=== PATIENT | male | born 1940 | race Caucasian/White ===

== ENCOUNTER → 2018-04-04 09:59 | Outpatient (BNVA) | payer MEDICARE, SELFPAY | PROVIDERS: PCP Student in an Organized Health Care Education/Training Program; Referring Provider Student in an Organized Health Care Education/Training Program; Visit Provider Physical Therapy Assistant | DX: L72.9 Follicular cyst of the skin and subcutaneous tissue, unspecified (principal); I10 Essential (primary) hypertension; E11.9 Type 2 diabetes mellitus without complications; Z79.84 Long term (current) use of oral hypoglycemic drugs | CPT/HCPCS: 99213 ==

== ENCOUNTER → 2018-04-10 12:54 | Outpatient (BNVA) | payer MEDICARE, SELFPAY | PROVIDERS: PCP Student in an Organized Health Care Education/Training Program; Referring Provider Student in an Organized Health Care Education/Training Program; Visit Provider Physical Therapy Assistant | DX: L72.9 Follicular cyst of the skin and subcutaneous tissue, unspecified (principal); I10 Essential (primary) hypertension; E11.9 Type 2 diabetes mellitus without complications; Z79.84 Long term (current) use of oral hypoglycemic drugs | CPT/HCPCS: 10060; 99212 ==

== ENCOUNTER → 2018-04-18 09:11 | Outpatient (BNVA) | payer MEDICARE, SELFPAY | PROVIDERS: PCP Student in an Organized Health Care Education/Training Program; Referring Provider Student in an Organized Health Care Education/Training Program; Visit Provider Physical Therapy Assistant | DX: L72.9 Follicular cyst of the skin and subcutaneous tissue, unspecified (principal); I10 Essential (primary) hypertension; E11.9 Type 2 diabetes mellitus without complications; Z79.84 Long term (current) use of oral hypoglycemic drugs ==

== ENCOUNTER 2018-05-23 11:17 | Outpatient (CLI) | payer MEDICARE, SELFPAY ==
[2018-05-23 11:49] LABS: HCT 42.8 % (40.0-50.0); HGB 14.3 g/dL (13.5-17.5); Mean Corp. HGB Concentration 33.4 g/dL (32.0-36.0); Mean Corpuscular Hemoglobin 30.2 pg (27.0-33.0); Mean Corpuscular Volume 90.5 fL (80-95); Mean Platelet Volume 10.6 fL (8.0-11.0); Platelet Count 195 x1000/uL (130-400); RBC 4.73 m/cumm (4.50-6.00); RBC Distribution Width 12.1 % (11.8-14.1); White Blood Cell Count 8.01 k/cumm (4.4-10.8)
[2018-05-23 13:15] LABS: ALT 28 U/L (12-78); AST 22 U/L (15-37); Albumin 3.7 g/dL (3.4-5.0); Alkaline Phosphatase 61 U/L (46-116); Anion Gap 4.9 mmol/L (3-11); BUN 17 mg/dL (7-18); Bilirubin, Total 0.9 mg/dL (0.2-1.0); CO2 33.1 mmol/L (21.0-32.0); Calcium 9.4 mg/dL (8.5-10.1); Chloride 103 mmol/L (98-107); Cholesterol 124 mg/dL (50-200); Glucose 110 mg/dL (70-100); HDL Cholesterol 45 mg/dL (40-60); LDL CHOLESTEROL 64 mg/dL (<100); Sodium 141 mmol/L (136-145); Total Protein 6.8 g/dL (6.4-8.2); Triglyceride 121 mg/dL (30-150)
[2018-05-26 11:25] LABS: PSA, Diagnostic 3.4 ng/ml (0-6.5)
== END 2018-05-23 11:37 ==
PROVIDERS: PCP Student in an Organized Health Care Education/Training Program; Visit Provider Urology
DX: E11.9 Type 2 diabetes mellitus without complications (principal); R53.83 Other fatigue
CPT/HCPCS: 36415; 80053; 80061; 83721; 85027; 84153

== ENCOUNTER → 2018-06-02 07:55 | Outpatient (BNVA) | payer MEDICARE, SELFPAY | PROVIDERS: PCP Student in an Organized Health Care Education/Training Program; Visit Provider Urology | DX: R39.12 Poor urinary stream (principal); R97.20 Elevated prostate specific antigen [PSA]; I10 Essential (primary) hypertension; E11.9 Type 2 diabetes mellitus without complications; Z79.84 Long term (current) use of oral hypoglycemic drugs | CPT/HCPCS: 99213 ==

== ENCOUNTER 2019-05-29 09:43 | Outpatient (CLI) | payer MEDICARE, SELFPAY ==
[2019-06-01 11:26] LABS: PSA, Diagnostic 5.1 ng/mL (0.0-6.5)
== END 2019-05-29 10:03 ==
PROVIDERS: PCP Student in an Organized Health Care Education/Training Program; Visit Provider Urology
DX: R97.20 Elevated prostate specific antigen [PSA] (principal)
CPT/HCPCS: 36415; 84153

== ENCOUNTER → 2019-06-05 08:00 | Outpatient (BNVA) | payer MEDICARE, SELFPAY | PROVIDERS: PCP Student in an Organized Health Care Education/Training Program; Referring Provider Student in an Organized Health Care Education/Training Program; Visit Provider Urology | DX: R97.20 Elevated prostate specific antigen [PSA] (principal); R35.0 Frequency of micturition | CPT/HCPCS: 99213 ==

== ENCOUNTER 2019-06-16 07:11 | Outpatient (CLI) | payer MEDICARE, SELFPAY ==
[2019-06-16 08:05] LABS: HCT 41.8 % (40.0-50.0); HGB 14.1 g/dL (13.5-17.5); Mean Corp. HGB Concentration 33.7 g/dL (32.0-36.0); Mean Corpuscular Hemoglobin 30.4 pg (27.0-33.0); Mean Corpuscular Volume 90.1 fL (80-95); Mean Platelet Volume 10.4 fL (8.0-11.0); Platelet Count 172 x1000/uL (130-400); RBC 4.64 m/cumm (4.50-6.00); RBC Distribution Width 12.5 % (11.8-14.1); White Blood Cell Count 7.13 k/cumm (4.4-10.8)
[2019-06-16 09:03] LABS: ALT 31 U/L (16-63); AST 21 U/L (15-37); Albumin 3.7 g/dL (3.4-5.0); Alkaline Phosphatase 74 U/L (46-116); Anion Gap 6.3 mmol/L (3-11); BUN 18 mg/dL (7-18); CO2 30.7 mmol/L (21.0-32.0); CREATININE 0.91 mg/dL (0.70-1.30); Calcium 8.8 mg/dL (8.5-10.1); Calculated LDL 65 mg/dL (<100); Chloride 104 mmol/L (98-107); Cholesterol 114 mg/dL (<200); Glucose 118 mg/dL (74-106); HDL Cholesterol 42 mg/dL (40-60); Potassium 4.3 mmol/L (3.5-5.1); Sodium 141 mmol/L (136-145); Total Protein 6.3 g/dL (6.4-8.2); Triglyceride 36 mg/dL (<150)
[2019-06-16 09:10] LABS: TSH (W/Ref FT4) 2.71 uIU/mL (0.36-3.74)
== END 2019-06-16 07:31 ==
PROVIDERS: PCP Student in an Organized Health Care Education/Training Program; Visit Provider Student in an Organized Health Care Education/Training Program
DX: I10 Essential (primary) hypertension (principal); I49.8 Other specified cardiac arrhythmias; Z80.0 Family history of malignant neoplasm of digestive organs; E11.9 Type 2 diabetes mellitus without complications; Z13.220 Encounter for screening for lipoid disorders; R53.83 Other fatigue
CPT/HCPCS: 36415; 80053; 80061; 85027; 84443

== ENCOUNTER 2019-06-26 13:47 | Outpatient (REF) | payer MEDICARE, SELFPAY ==
[2019-06-26 14:49] LABS: COMMENT (LAB VIEW ONLY) 30.75 mg/dL; Microalb ug/mg Crea 15.6 ug/mg Cr
== END 2019-06-26 14:07 ==
LOC: LBN 13:47
PROVIDERS: PCP Student in an Organized Health Care Education/Training Program; Visit Provider Student in an Organized Health Care Education/Training Program
DX: E11.9 Type 2 diabetes mellitus without complications (principal)
CPT/HCPCS: 82043; 82570

== ENCOUNTER → 2019-11-20 08:29 | Outpatient (BNVA) | payer MEDICARE, SELFPAY | PROVIDERS: PCP Student in an Organized Health Care Education/Training Program; Referring Provider Student in an Organized Health Care Education/Training Program; Visit Provider Physical Therapy Assistant | DX: Z12.11 Encounter for screening for malignant neoplasm of colon (principal); Z80.0 Family history of malignant neoplasm of digestive organs ==

== ENCOUNTER 2019-12-01 06:18 | Day surgery (SDC) | payer MEDICARE, SELFPAY ==
[2019-12-01 06:09] VITALS: BP 158/86; PULSE 63; RESP 20; TEMP 37.1; O2SAT 97
--- NOTE | 2019-12-01 06:52 | COLE_ITS ---
Date of service: 12/01/19 Time of Service: : Colonoscopy Report Date of procedure: 12/01/19 Pre-op diagnosis general: Colon Cancer Screening and Family history Post-op diagnosis procedure note: other (cecal polyp) Procedure: Colonoscopy with polypectomy Surgeon: Mary Angela Anesthesia proc note operative: other (General/ASA 2/Klaus So CRNA) Estimated blood loss (mL): 2 Pathology: other (Cecal polyp) Complications: None Disposition: same day Indications: The patient is here for Colonoscopy pre-op.His last screening was in 2012, which was unremarkable. He reports family history of colon cancer in his brother at the age of 70. He has no family history of colon cancer. He has not had any bowel habit changes. -Discussed colonoscopy bowel prep as well as the procedure. Discussed possible complications of the procedure to include bleeding, pain, perforation, missed small lesion/polyp, sore throat, aspiration and adverse reaction to the medications. Questions were answered to patient?s satisfaction. No guarantees were implied or given. Prep: Miralax/Dulcolax Procedure Start Time: Procedure End Time: : Retraction Time: 15 minutes Findings: One small sessile polyp next to the ileocecal valve Procedure Description: After informed consent was obtained the patient was taken to the procedure room and placed in a left decubitous position. Monitors were applied and a time out was done. The patients name, date of , procedure, allergies to medications and metal in their body was reviewed. The patient was then sedated. Once sedated and comfortable a rectal exam was done. External exam was normal. Internal exam revealed a normal sphincter tone and no palpable masses. The prostate felt smooth. There were no nodules. The scope was then introduced and retro-flexed. No internal hemorrhoids were identified. The scope was then advanced to the cecum with some difficulty, due to a tortuous. The ileocecal valve and appendiceal orifice were identified. The prep was good. The scope was then slowly retracted over 15 minutes back into the rectum. Polyps were removed with cold forceps at the ileocecal valve. The scope was removed and the patient was woken up and taken back to [facility] in stable condition. The patient tolerated the procedure well and there were no immediate complications. Follow up: The patient should follow up in 5 years unless they develop changes in bowel habits or other new gastrointestinal complaints.
[2019-12-01] MEDS: Lactated Ringers 1,000 ML 80 ML IV (06:53)
--- NOTE | 2019-12-01 06:55 | W.PM.DSUDISC ---
Discharge Plan Disposition Patient Disposition: HOME Condition: Good Discharge Details Reason For Visit: Colonoscopy Attending Provider: Mary Angela Primary Care Provider: Aissatou Hull Home Meds and New Rx's Prescriptions: Continued latanoprost 0.005 % drops 1 drp OP QPM RF: 0 magnesium 200 mg tablet 500 mg PO DAILY RF: 0 multivitamin [Daily Vitamin] 1 EACH tablet 1 ea PO DAILY RF: 0 ascorbic acid (vitamin C) [Vitamin C] 500 MG tablet 500 mg PO DAILY RF: 0 aspirin [Aspirin Low-Strength] 81 MG tablet,chewable 81 mg PO DAILY Qty: 90 RF: 0 omega-3 fatty acids-fish oil 1 EACH capsule 1 ea PO DAILY RF: 0 (DME) lancets 1 EACH misc 1 ea Miscellaneous DAILY Qty: 100 RF: 3 (DME) blood sugar diagnostic [Accu-Chek Diana Plus test strp] 1 EACH strip 1 ea Miscellaneous DAILY Qty: 100 RF: 3 lisinopril 20 mg tablet 20 mg PO DAILY Qty: 90 RF: 3 metronidazole 0.75 % gel 1 applic Topical DAILY PRNRF: 0 atorvastatin 10 mg tablet 10 mg PO QHS Qty: 90 RF: 3 hydrochlorothiazide 12.5 mg tablet 12.5 mg PO DAILY Qty: 90 RF: 3 metformin 500 mg tablet 250 - 500 mg PO BID RF: 0 Discharge Instructions Instructions: Colorectal Polyps (DC), Diverticulosis (DC) Additional Instructions: Findings: mild diverticulosis one small polyp Follow up: 5 years Please call if you develop: fevers >101.5 Nausea or Vomiting Abdominal pain that is not transient DAY SURGERY UNIT POST ENDOSCOPY INSTRUCTIONS 1. Because there will be medication in your system for the next 24 hours, you may feel a little sleepy. Your coordination will be affected. Therefore: a. Do not drive or operate dangerous equipment for 24 hours. b. Do not drink alcohol beverages for 24 hours (not even beer). c. Plan to go home and rest for the day. 2. Generally there are no restrictions on your activity after a day or so has gone by, but you may feel a bit fatigued for a few days. 3 After you arrive home you may have a light meal and return to a normal diet as you can tolerate it without feeling sick to your stomach. 4. After surgery, you may feel pain or discomfort. This should be only transient, but if it persists please contact your doctor. 5. If there are any questions regarding the findings of your procedure, please feel free to contact your doctor. 6. If you are unable to contact your doctor with a problem, contact the hospital at [phone]. 7. Continue all your regular medications unless directed otherwise. I understand the above instructions and have no questions. Signature of Patient or Responsible Adult Escort Date/Time Name of Responsible Adult Escort Signature of Nurse Date/Time Activity:: Activity as Tolerated Diet:: high fiber Discharge Orders Discharge Orders: Discharge Order (Routine); Ordered 12/01/19 Ordered By: Mary Angela
--- NOTE | 2019-12-01 07:48 | BOWEL_PTH ---
PATIENT: Santo Howe LOC: [facility] U#:[id number] AGE/SX: 79/M ROOM: RE12/01/[address]: Mary Angela MD : [id number] BED: DIS: 12/01/2019 SPEC #: [id number] RECD: 12/01/19 12:10 STATUS: LAURITA REQ #: [id number] ISAC: 12/01/19 07:[address]: Mary Angela DEPT: Surgical Specimen RECD BY: Alyssa Xiao ENTERED: 12/01/19 12:11 SP TYPE: Bowel OTHR DR: Aissatou Hull DO Tissues: 1 - BIOPSY BOWEL Procedures: GROSS AND MICRO LEVEL 4 Comments: [id number]
[2019-12-01 08:45] VITALS: BP 142/89; PULSE 52; RESP 18; TEMP 36.2; O2SAT 97
== END 2019-12-01 09:13 | disposition home or self-care (01) ==
PROVIDERS: PCP Student in an Organized Health Care Education/Training Program; Visit Provider Surgery
PROC: 0DJD8ZZ Inspection of Lower Intestinal Tract, Via Natural or Artificial Opening Endoscopic (ICD-10-PCS; CPT 45378; principal; 2019-12-01 07:30)
DX: Z12.11 Encounter for screening for malignant neoplasm of colon (principal); Z80.0 Family history of malignant neoplasm of digestive organs; D12.0 Benign neoplasm of cecum; K57.30 Diverticulosis of large intestine without perforation or abscess without bleeding; Q43.8 Other specified congenital malformations of intestine; I10 Essential (primary) hypertension; G47.33 Obstructive sleep apnea (adult) (pediatric); E11.9 Type 2 diabetes mellitus without complications
CPT/HCPCS: 45380; 88305; J2001

== ENCOUNTER 2020-05-30 01:50 | Outpatient (CLI) | payer MEDICARE, SELFPAY ==
[2020-05-30 08:39] LABS: ALT 32 U/L (16-63); AST 21 U/L (15-37); Albumin 3.9 g/dL (3.4-5.0); Alkaline Phosphatase 73 U/L (46-116); Anion Gap 6.4 mmol/L (3-11); BUN 17 mg/dL (7-18); Bilirubin, Total 0.7 mg/dL (0.2-1.0); CO2 29.6 mmol/L (21.0-32.0); CREATININE 0.8 mg/dL (0.70-1.30); Calcium 8.9 mg/dL (8.5-10.1); Calculated LDL 72 mg/dL (<100); Chloride 104 mmol/L (98-107); Cholesterol 133 mg/dL (<200); Glucose 122 mg/dL (74-106); HDL Cholesterol 47 mg/dL (40-60); Potassium 4.5 mmol/L (3.5-5.1); Sodium 140 mmol/L (136-145); Total Protein 6.8 g/dL (6.4-8.2); Triglyceride 74 mg/dL (<150)
== END 2020-05-30 01:51 | disposition home or self-care (01) ==
LOC: LBO 01:50
PROVIDERS: Urology; PCP Student in an Organized Health Care Education/Training Program; Visit Provider Student in an Organized Health Care Education/Training Program
DX: E11.9 Type 2 diabetes mellitus without complications (principal); I10 Essential (primary) hypertension; R97.20 Elevated prostate specific antigen [PSA]
CPT/HCPCS: 36415; 80053; 80061; 84153

== ENCOUNTER → 2020-06-17 08:02 | Outpatient (BNVA) | payer MEDICARE, SELFPAY | PROVIDERS: PCP Student in an Organized Health Care Education/Training Program; Visit Provider Urology | DX: R35.1 Nocturia (principal); R97.20 Elevated prostate specific antigen [PSA] | CPT/HCPCS: 99213 ==

== ENCOUNTER 2020-09-20 03:51 | Outpatient (CLI) | payer MEDICARE, SELFPAY ==
[2020-09-20 08:12] LABS: HCT 42.2 % (40.0-50.0); HGB 14.1 g/dL (13.5-17.5); MCH 30.4 pg (27.0-33.0); MCHC 33.4 % (32.0-36.0); MCV 90.9 fL (80-95); Platelet Count 199 10^3/uL (130-400); RBC 4.64 10^6/uL (4.36-5.78); RDW 11.5 % (11.8-14.1); RDW-SD 38.2 fL
[2020-09-20 09:00] LABS: Iron 89 ug/dL (65-175); Total Iron Binding Capacity 248 ug/dL (250-450); Transferrin Sat 36 % (20-55)
[2020-09-20 09:27] LABS: Ferritin 132 ng/mL (26-388); Folate > 20.0 ng/mL (8.6-20.0); Vitamin B12 675 pg/mL (193-986)
== END 2020-09-20 03:52 | disposition home or self-care (01) ==
LOC: LBO 03:52
PROVIDERS: PCP Student in an Organized Health Care Education/Training Program; Visit Provider Student in an Organized Health Care Education/Training Program
DX: D64.9 Anemia, unspecified (principal); Z86.39 Personal history of other endocrine, nutritional and metabolic disease
CPT/HCPCS: 36415; 85027; 82607; 82728; 82746; 83540; 83550

== ENCOUNTER → 2021-03-28 08:56 | Outpatient (BNVA) | payer MEDICARE, SELFPAY | PROVIDERS: PCP Student in an Organized Health Care Education/Training Program; Referring Provider Student in an Organized Health Care Education/Training Program; Visit Provider Nurse Practitioner Gerontology | DX: N40.1 Benign prostatic hyperplasia with lower urinary tract symptoms (principal); N13.8 Other obstructive and reflux uropathy; R82.998 Other abnormal findings in urine | CPT/HCPCS: 81003; 99214 ==

== ENCOUNTER 2021-03-28 13:57 | Outpatient (REF) | payer MEDICARE, SELFPAY | END 2021-03-28 13:58 | disposition home or self-care (01) | LOC: NCHCN 13:57 | PROVIDERS: PCP Student in an Organized Health Care Education/Training Program; Visit Provider Nurse Practitioner Gerontology | DX: N40.1 Benign prostatic hyperplasia with lower urinary tract symptoms (principal) | CPT/HCPCS: 87086 ==

== ENCOUNTER 2021-04-10 04:25 | Outpatient (CLI) | payer MEDICARE, SELFPAY ==
[2021-04-10 14:08] LABS: HCT 44.4 % (40.0-50.0); HGB 14.6 g/dL (13.5-17.5); MCH 30.1 pg (27.0-33.0); MCHC 32.9 % (32.0-36.0); MCV 91.5 fL (80-95); MPV 10.8 fL (8.0-11.0); Platelet Count 211 10^3/uL (130-400); RBC 4.85 10^6/uL (4.36-5.78); RDW 11.4 % (11.8-14.1); RDW-SD 38.3 fL; WBC 7.41 10^3/uL (4.4-10.8)
[2021-04-11 11:55] LABS: Lyme Ab w Rflx to Lyme Confirm Negative (Negative)
[2021-04-12 16:35] LABS: Anaplasma phagocytophilum Negative (Negative); B. miyamotoi PCR Negative (Negative); Babesia divergens/MO-1 Negative (Negative); Babesia duncani Negative (Negative); Babesia microti Negative (Negative); Ehrlichia chaffeensis Negative (Negative); Ehrlichia ewingii/canis Negative (Negative); Ehrlichia muris eauclairensis Negative (Negative)
== END 2021-04-10 04:26 | disposition home or self-care (01) ==
LOC: LBO 04:25
PROVIDERS: PCP Student in an Organized Health Care Education/Training Program; Visit Provider Student in an Organized Health Care Education/Training Program
DX: S30.861A Insect bite (nonvenomous) of abdominal wall, initial encounter (principal); W57.XXXA Bitten or stung by nonvenomous insect and other nonvenomous arthropods, initial encounter; Z86.2 Personal history of diseases of the blood and blood-forming organs and certain disorders involving the immune mechanism
CPT/HCPCS: 36415; 85027; 87798; 86618

== ENCOUNTER 2021-06-02 03:47 | Outpatient (CLI) | payer MEDICARE, SELFPAY ==
[2021-06-02 08:21] LABS: HCT 44.2 % (40.0-50.0); HGB 14.4 g/dL (13.5-17.5); MCH 29.6 pg (27.0-33.0); MCHC 32.6 % (32.0-36.0); MCV 90.8 fL (80-95); MPV 10.8 fL (8.0-11.0); Platelet Count 196 10^3/uL (130-400); RBC 4.87 10^6/uL (4.36-5.78); RDW 11.9 % (11.8-14.1); RDW-SD 39.6 fL; WBC 7.31 10^3/uL (4.4-10.8)
[2021-06-02 09:19] LABS: Calculated LDL 76 mg/dL (<100); Cholesterol 137 mg/dL (<200); HDL Cholesterol 52 mg/dL (40-60); Triglyceride 45 mg/dL (<150)
[2021-06-02 10:07] LABS: Hemoglobin A1C 6.4 % (<5.7)
[2021-06-02 18:04] LABS: PSA, Diagnostic 3.3 ng/mL (0.0-6.5)
== END 2021-06-02 03:48 | disposition home or self-care (01) ==
LOC: LBO 03:47
PROVIDERS: PCP Student in an Organized Health Care Education/Training Program; Visit Provider Urology
DX: N13.8 Other obstructive and reflux uropathy (principal); N40.1 Benign prostatic hyperplasia with lower urinary tract symptoms; R97.20 Elevated prostate specific antigen [PSA]; Z13.220 Encounter for screening for lipoid disorders; E11.9 Type 2 diabetes mellitus without complications; H35.443 Age-related reticular degeneration of retina, bilateral; Z86.2 Personal history of diseases of the blood and blood-forming organs and certain disorders involving the immune mechanism; I10 Essential (primary) hypertension
CPT/HCPCS: 36415; 80061; 85027; 83036; 84153

== ENCOUNTER 2021-06-15 13:05 | Outpatient (CLI) | payer MEDICARE, SELFPAY ==
--- NOTE | 2021-06-15 08:45 | DI.RAD_ITS ---
Exam(s) XR HIP RT COMPLETE AP PELVIS EXAM: XR HIP RT COMPLETE AP PELVIS INDICATION: evaluate joint space; bony path M25.559 PAIN IN HIP Z87.898. COMPARISON: CR BARIUM SWALLOW W PA LAT CXR from 07/06/2011 TECHNIQUE: 2D digital imaging was performed. FINDINGS: The joint spaces are well maintained. There is mild right acetabular spurring. There is mild deform ity of the cortex of the proximal right femur with cortical thickening. The findings could be second juan to an old fracture. Lesser trochanter is not well seen. There are no prior comparison exams.. Vascular calcifications are seen. Enthesophytes are seen at the iliac wings. There is there are deg enerative disc changes of the lower lumbar spine. IMPRESSION: Proximal femoral deformity could be related to an old fracture. Clinical correlation is recommended. Mild degenerative changes of both hips. If there is further clinical concern, an MRI could be cons idered. DATA REPOSITORY: RADIATION DOSE DELIVERED:
== END 2021-06-15 13:25 ==
PROVIDERS: PCP Student in an Organized Health Care Education/Training Program; Visit Provider Student in an Organized Health Care Education/Training Program
DX: M25.551 Pain in right hip (principal); Z87.898 Personal history of other specified conditions; M21.951 Unspecified acquired deformity of right thigh
CPT/HCPCS: 73502

== ENCOUNTER → 2021-06-23 07:59 | Outpatient (BNVA) | payer MEDICARE, SELFPAY | PROVIDERS: PCP Student in an Organized Health Care Education/Training Program; Referring Provider Student in an Organized Health Care Education/Training Program; Visit Provider Urology | DX: N40.1 Benign prostatic hyperplasia with lower urinary tract symptoms (principal); N13.8 Other obstructive and reflux uropathy; R97.20 Elevated prostate specific antigen [PSA] | CPT/HCPCS: 81003; 99214 ==

== ENCOUNTER 2021-06-27 00:15 | Outpatient (CLI) | payer MEDICARE, SELFPAY ==
--- NOTE | 2021-06-27 06:30 | DI.MRI_ITS ---
Exam(s) MR LOWER JOINT RT WO EXAM: MR LOWER JOINT RT WO CLINICAL HISTORY: Eval rt hip (old Fx/growth plate path),NEW PAIN,m25.559,z87.898 TECHNIQUE: Multiplanar multisequence MRI of Pelvis was performed COMPARISON: CR XR HIP RT COMPLETE AP PELVIS from 06/15/2021 FINDINGS: There is no fracture or contusion pattern. No bone marrow edema is seen. No significant joint effusion or labral injury is present. There is a small amount of localized flui d seen posterior to the left femoral neck which could represent a synovial cyst or ganglion. The SI joints and symphysis pubis are well maintained. Musculotendinous structures: Abnormal thickening and high signal in the right gluteus medius tendon, consistent with severe tendinitis versus partial tear. No significant muscle atrophy. Remaining te ndons unremarkable. Intrapelvic structures: Enlarged prostate with multiple nodules. Mild diffuse bladder wall thickenin g. No focal mass or stone.. IMPRESSION: Severe tendinitis versus partial tear of the right gluteus medius tendon. Enlarged prostate. DATA REPOSITORY:
== END 2021-06-27 00:35 ==
PROVIDERS: PCP Student in an Organized Health Care Education/Training Program; Visit Provider Student in an Organized Health Care Education/Training Program
DX: M25.551 Pain in right hip (principal); M67.851 Other specified disorders of synovium, right hip; M76.01 Gluteal tendinitis, right hip
CPT/HCPCS: 73721

== ENCOUNTER → 2021-08-08 13:38 | Outpatient (BNVA) | payer MEDICARE, SELFPAY | PROVIDERS: PCP Student in an Organized Health Care Education/Training Program; Referring Provider Student in an Organized Health Care Education/Training Program; Visit Provider Student in an Organized Health Care Education/Training Program | DX: M67.951 Unspecified disorder of synovium and tendon, right thigh (principal) | CPT/HCPCS: 99204; 99214 ==

== ENCOUNTER → 2021-10-17 12:56 | Outpatient (BNVA) | payer MEDICARE, SELFPAY | PROVIDERS: PCP Student in an Organized Health Care Education/Training Program; Referring Provider Student in an Organized Health Care Education/Training Program; Visit Provider Student in an Organized Health Care Education/Training Program | DX: M67.951 Unspecified disorder of synovium and tendon, right thigh (principal); M70.61 Trochanteric bursitis, right hip | CPT/HCPCS: 99212; 99213 ==

== ENCOUNTER 2021-10-18 16:44 | Outpatient (REF) | payer MEDICARE, SELFPAY ==
[2021-10-20 11:23] LABS: COVID-19 RT-PCR UVMMC Result Negative (Negative)
== END 2021-10-18 16:45 | disposition home or self-care (01) ==
LOC: LBN 16:44
PROVIDERS: PCP Student in an Organized Health Care Education/Training Program; Visit Provider Student in an Organized Health Care Education/Training Program
DX: Z20.822 Contact with and (suspected) exposure to COVID-19 (principal)
CPT/HCPCS: U0003

== ENCOUNTER 2022-01-04 03:57 | Outpatient (CLI) | payer MEDICARE, SELFPAY ==
[2022-01-04 08:56] LABS: Anion Gap 5.1 mmol/L (3-11); BUN 20 mg/dL (7-18); CO2 31.9 mmol/L (21.0-32.0); Chloride 103 mmol/L (98-107); Estimated GFR 76.56 (mL/min/1.73m2); Glucose 113 mg/dL (74-106); Potassium 4.2 mmol/L (3.5-5.1); Sodium 140 mmol/L (136-145)
[2022-01-04 09:16] LABS: Calculated LDL 71 mg/dL (<100); Cholesterol 124 mg/dL (<200); HDL Cholesterol 43 mg/dL (40-60); Triglyceride 52 mg/dL (<150)
== END 2022-01-04 03:58 | disposition home or self-care (01) ==
LOC: LBO 03:57
PROVIDERS: PCP Student in an Organized Health Care Education/Training Program; Visit Provider Student in an Organized Health Care Education/Training Program
DX: E11.9 Type 2 diabetes mellitus without complications (principal); Z79.4 Long term (current) use of insulin; Z79.899 Other long term (current) drug therapy; I10 Essential (primary) hypertension; E78.5 Hyperlipidemia, unspecified
CPT/HCPCS: 36415; 80048; 80061

== ENCOUNTER → 2022-03-14 11:39 | Outpatient (BNVA) | payer MEDICARE, SELFPAY | PROVIDERS: PCP Student in an Organized Health Care Education/Training Program; Referring Provider Student in an Organized Health Care Education/Training Program; Visit Provider Surgery | DX: S81.812D Laceration without foreign body, left lower leg, subsequent encounter (principal); W26.8XXD Contact with other sharp object(s), not elsewhere classified, subsequent encounter | CPT/HCPCS: 99213 ==

== ENCOUNTER 2022-06-07 02:50 | Outpatient (CLI) | payer MEDICARE, SELFPAY ==
[2022-06-07 07:16] LABS: HGB 13.2 g/dL (13.5-17.5)
[2022-06-07 07:45] LABS: ALT 24 U/L (16-63); AST 19 U/L (15-37); Albumin 3.3 g/dL (3.4-5.0); Alkaline Phosphatase 104 U/L (46-116); Anion Gap 5.6 mmol/L (3-11); BUN 15 mg/dL (7-18); Bilirubin, Total 0.8 mg/dL (0.2-1.0); CO2 30.4 mmol/L (21.0-32.0); CREATININE 0.9 mg/dL (0.70-1.30); Calcium 8.8 mg/dL (8.5-10.1); Chloride 105 mmol/L (98-107); Estimated GFR 86.88 (mL/min/1.73m2); Glucose 117 mg/dL (74-106); Potassium 4.1 mmol/L (3.5-5.1); Sodium 141 mmol/L (136-145)
== END 2022-06-07 02:51 | disposition home or self-care (01) ==
LOC: LBO 02:50
PROVIDERS: Absent Provider Student in an Organized Health Care Education/Training Program; PCP Student in an Organized Health Care Education/Training Program; Referring Provider Student in an Organized Health Care Education/Training Program; Visit Provider Student in an Organized Health Care Education/Training Program
DX: E11.9 Type 2 diabetes mellitus without complications (principal); I10 Essential (primary) hypertension; R09.89 Other specified symptoms and signs involving the circulatory and respiratory systems
CPT/HCPCS: 36415; 80053; 85018

== ENCOUNTER 2022-06-15 02:00 | Outpatient (CLI) | payer MEDICARE, SELFPAY ==
[2022-06-15 20:05] LABS: PSA, Diagnostic 4.5 ng/mL (<=6.5)
== END 2022-06-15 02:01 | disposition home or self-care (01) ==
LOC: LBO 02:01
PROVIDERS: PCP Student in an Organized Health Care Education/Training Program; Visit Provider Urology
DX: R97.20 Elevated prostate specific antigen [PSA] (principal)
CPT/HCPCS: 36415; 84153

== ENCOUNTER → 2022-06-25 13:22 | Outpatient (BNVA) | payer MEDICARE, SELFPAY | PROVIDERS: PCP Student in an Organized Health Care Education/Training Program; Visit Provider Urology | DX: R97.20 Elevated prostate specific antigen [PSA] (principal); N39.43 Post-void dribbling | CPT/HCPCS: 99213 ==

== ENCOUNTER 2022-09-27 00:35 | Outpatient (CLI) | payer MEDICARE, SELFPAY ==
--- NOTE | 2022-09-27 08:30 | DI.RAD_ITS ---
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 TECHNIQUE: 2D digital imaging was performed. COMPARISON: CR BARIUM SWALLOW W PA LAT CXR from 07/06/2011 FINDINGS: 2 views: Heart size is normal. The mediastinum is not widened. Left lung remains clear but there is now a large noncalcified mass infiltrate in the right lower lobe measuring approximately 10 x 9 cm. No pleural effusion on either side. IMPRESSION: Large 10 x 9 cm mass/infiltrate in the right lower lobe. Suspicious for malignancy or possibly infec tious.No pleural effusions. No findings in the opposite-left lung. Contrast infused CT scan recommended. Called by myself to referring physician. DATA REPOSITORY: RADIATION DOSE DELIVERED:
--- NOTE | 2022-09-27 14:30 | DI.CT_ITS ---
Exam(s) CT CHEST W EXAM: CT CHEST W CLINICAL HISTORY: evaluate new mass R91.8 ABNL FINDINGS ON CXR. TECHNIQUE: Multi planar reconstructions were performed. CONTRAST MATERIAL: Omnipaque 350; 75 cc COMPARISON: No exams were available for comparison FINDINGS: CHEST: LUNGS: There is a large concerning mass in the right lower lobe which corresponds to the finding on c hest x-ray of earlier today and is suspicious for malignancy. This mass measures approximately 9 x 8 x 7 cm.. There is no associated pleural effusion. No other lung masses nor smaller nodules in eith er lung field. No findings in the trachea and mainstem bronchi. MEDIASTINUM: There is no hilar nor mediastinal adenopathy. CARDIAC: Heart size is normal. There is no pericardial effusion.Caliber of the thoracic aorta is wit hin normal limits. Coronary artery calcification LAD noted. VISUALIZED UPPER ABDOMEN:Right adrenal gland appears unremarkable. There is some mild thickening of the left adrenal gland. There is a lesion in the dome of the liver measuring approximately 3.6 by 3. 7 cm. Difficult to assess on this type of chest study but cannot exclude possibly that this would be metastatic disease. OSSEOUS: No significant osseous lesions.No fractures. IMPRESSION: 1. There is a large ominous 9 x 8 x 7 cm mass in the right lower lobe which corresponds to the findin g seen on recent chest x-ray. Highly suspicious for malignancy. No other focal lung findings and no pleural effusions. No obvious adenopathy. 2. 3.6 x 3.7 cm lesion in the upper right hepatic lobe, possibly metastatic. Difficult to assess acc urately on this type of study. Provider office notified RADIATION DOSE DELIVERED: 438.43mGy.cm Total DLP DATA REPOSITORY: All CT scans at this facility are submitted to the National Radiology Data Registry (NRDR) Dose Index Registry (DIR) with the [employer] (ACR). RADIATION OPTIMIZATION: All CT scans at this facility use at least one of these dose optimization te chniques: automated exposure control; mA and/or kV adjustment per patient size (includes targeted exa ms where dose is matched to clinical indication); or iterative reconstruction.
[2022-09-27 15:46] LABS: ALT 25 U/L (16-63); AST 17 U/L (15-37); Alkaline Phosphatase 109 U/L (46-116); Anion Gap 6.8 mmol/L (3-11); BUN 13 mg/dL (7-18); Bilirubin, Total 0.5 mg/dL (0.2-1.0); CO2 31.2 mmol/L (21.0-32.0); CREATININE 0.8 mg/dL (0.70-1.30); Calcium 8.9 mg/dL (8.5-10.1); Calculated LDL 51 mg/dL (<100); Chloride 101 mmol/L (98-107); Cholesterol 118 mg/dL (<200); Estimated GFR 89.47 (mL/min/1.73m2); Ferritin 286 ng/mL (26-388); Glucose 149 mg/dL (74-106); HDL Cholesterol 42 mg/dL (40-60); Potassium 3.7 mmol/L (3.5-5.1); Sodium 139 mmol/L (136-145); TSH (W/Ref FT4) 2.44 uIU/mL (0.36-3.74); Total Protein 7.2 g/dL (6.4-8.2); Triglyceride 128 mg/dL (<150)
[2022-09-27] MEDS: Omnipaque 350 MG/ML 100 ML BTL IJ (16:09)
[2022-09-27] MEDS: Normal Saline - Diluent 50 ML VIAL IJ (16:10)
[2022-09-27 16:18] LABS: Iron 42 ug/dL (65-175); Total Iron Binding Capacity 208 ug/dL (250-450); Transferrin Sat 20 % (20-55)
== END 2022-09-27 00:55 ==
PROVIDERS: PCP Student in an Organized Health Care Education/Training Program; Visit Provider Student in an Organized Health Care Education/Training Program
DX: J39.2 Other diseases of pharynx (principal); J39.8 Other specified diseases of upper respiratory tract; R05.3 Chronic cough; E11.9 Type 2 diabetes mellitus without complications; I10 Essential (primary) hypertension; R91.1 Solitary pulmonary nodule
CPT/HCPCS: 80048; 80053; 80061; 71046; 71260; 82728; 83540; 83550; 84443; J3490

== ENCOUNTER 2022-10-04 02:27 | Outpatient (CLI) | payer MEDICARE, SELFPAY ==
[2022-10-04] MEDS: Inhaler, Assist Device 1 EACH MC (08:59)
[2022-10-04] MEDS: Albuterol HFA 18 GM 200 PUFF INH IH (08:59)
--- NOTE | 2022-10-04 16:02 | W.PFT ---
Date of service: 10/04/22 Time of Service: 08:06 Pulmonary Function Test Result Indications: Cough Interpretation Spirometry: There is no airflow limitation. No bronchodilator response. Lung Volumes: Normal lung volumes Diffusion Capacity: Normal diffusion Airway Pressure: Normal airway resistance Impression Normal pulmonary function testing. Clinical Correlation therefore is recommended.
== END 2022-10-04 02:28 | disposition home or self-care (01) ==
LOC: RT 02:27
PROVIDERS: PCP Student in an Organized Health Care Education/Training Program; Visit Provider Student in an Organized Health Care Education/Training Program
DX: J02.9 Acute pharyngitis, unspecified (principal); R05.3 Chronic cough; J42 Unspecified chronic bronchitis
CPT/HCPCS: 94060; 94726; 94729

== ENCOUNTER 2022-10-15 02:59 | Outpatient (CLI) | payer MEDICARE, SELFPAY ==
[2022-10-15 15:32] LABS: Prothrombin Time 9.8 sec (9.3-11.0)
[2022-10-17 09:04] LABS: Leukemia/Lymphoma by FC (Blood (See below)
[2022-10-19 00:24] LABS: Fungitell Qualitative Negative (Negative); Fungitell Quantitative Value <31 pg/mL (<60 pg/mL)
[2022-10-19 14:10] LABS: Blastomyces Ag Result Not Detected; Blastomyces Ag Value Not Detected
[2022-10-19 21:40] LABS: Coccidioides Ab Scr w/Reflex Negative (Negative)
== END 2022-10-15 03:00 | disposition home or self-care (01) ==
LOC: LBO 02:59
PROVIDERS: PCP Student in an Organized Health Care Education/Training Program; Visit Provider Student in an Organized Health Care Education/Training Program
DX: R91.8 Other nonspecific abnormal finding of lung field; K76.9 Liver disease, unspecified; R89.7 Abnormal histological findings in specimens from other organs, systems and tissues
CPT/HCPCS: 36415; 86635; 87449; 88185; 85610; 87385; 88184; 88189

== ENCOUNTER 2022-10-26 01:18 | Outpatient (CLI) | payer MEDICARE, SELFPAY ==
--- NOTE | 2022-10-26 07:30 | DI.MRI_ITS ---
Exam(s) MR BRAIN WO/W EXAM: MR BRAIN WO/W CLINICAL HISTORY: concern for mets,lung mass TECHNIQUE: Multiplanar multisequence MRI of the brain was performed. Both noninfused and contrast i nfused sequences were performed. IV Contrast injected was 17 cc Dotarem. COMPARISON: CR XR CHEST 2V PA LATERAL from 09/27/2022 FINDINGS: CEREBRAL PARENCHYMA: There are multiple enhancing metastatic lesions in the brain. The largest of these is in the right f rontal region and measures 2.9 x 2.8 by 2.7 cm. There is abundant surrounding white matter edema wit h some mass effect upon the frontal horn of the right lateral ventricle and mild shift to the opposit e side, approximately 2 mm. There is a ring enhancing metastatic lesion in the left cerebellar hemisphere measuring 1.3 x 1.0 cm, also with surrounding edema. None another smaller enhancing metastatic lesion measuring 9 x 8 mm is seen in the left occipital parietal region. Another smaller 4 millimeter lesion with surrounding ed viraj is noted in the right parietal lobe and the another larger enhancing 1.4 cm lesion is seen adjace nt to the right side of the falx in the right frontal parietal region. All of these lesions exhibit surrounding edema. No evidence of hemorrhage DWI: No areas of restricted diffusion to suggest acute ischemic event. There are no ring enhancing lesions in the brain. There is no abnormal meningeal enhancement. PITUITARY GLAND: No mass nor parasellar abnormality. No obvious abnormality in the cavernous sinuses. FLOW VOIDS: The expected flow void are noted. No evidence of obvious aneurysm nor obvious vascular ma lformation. PARANASAL SINUSES: Mucosal thickening without fluid noted in the right maxillary sinus. Other parana reddy sinuses are clear. ORBITS: No obvious abnormal findings. IMPRESSION: There are multiple enhancing metastatic lesions as described above. Abundant surrounding edema. Thi s is most prominent around the largest lesion which is in the right frontal lobe. DATA REPOSITORY:
[2022-10-26] MEDS: Gadoterate meglumine 20 ML VIAL IVP (11:05)
[2022-10-26] MEDS: Normal Saline Flush 10 ML SYR IVP (11:06)
== END 2022-10-26 01:38 ==
LOC: DI 01:19
PROVIDERS: PCP Student in an Organized Health Care Education/Training Program; Visit Provider Student in an Organized Health Care Education/Training Program
DX: R91.8 Other nonspecific abnormal finding of lung field (principal); C79.31 Secondary malignant neoplasm of brain
CPT/HCPCS: 70553

== ENCOUNTER 2022-11-12 01:57 | Outpatient (RCR) | payer MEDICARE, SELFPAY ==
[2022-11-06] MEDS: IRON SUCROSE COMPLEX 200 MG in Normal Saline 100 ML 440 MG IVPB (11:27)
[2022-11-06] MEDS: Normal Saline Flush 10 ML SYR IVP (11:27)
[2022-11-12] MEDS: Normal Saline Flush 10 ML SYR IVP (10:13)
[2022-11-12] MEDS: IRON SUCROSE COMPLEX 200 MG in Normal Saline 100 ML 440 MG IVPB (10:18)
[2022-11-12 11:11] LABS: BUN 27 mg/dL (7-18); CREATININE 0.8 mg/dL (0.70-1.30); Calcium 7.3 mg/dL (8.5-10.1); Chloride 100 mmol/L (98-107); Estimated GFR 89.47 (mL/min/1.73m2); Glucose 348 mg/dL (74-106); Potassium 3.6 mmol/L (3.5-5.1); Sodium 133 mmol/L (136-145)
== END 2022-11-12 23:59 | disposition home or self-care (01) ==
LOC: INF 01:57
PROVIDERS: PCP Student in an Organized Health Care Education/Training Program; Visit Provider Student in an Organized Health Care Education/Training Program
DX: I10 Essential (primary) hypertension (principal); E11.69 Type 2 diabetes mellitus with other specified complication; E78.5 Hyperlipidemia, unspecified; D64.9 Anemia, unspecified
CPT/HCPCS: 80048; 96365; J1756

== ENCOUNTER → 2022-11-27 13:16 | Outpatient (CLI) | payer MEDICARE, SELFPAY ==
--- NOTE | 2022-11-27 | DI.US_ITS ---
Exam(s) US LOWER EXTREMITY VENOUS LT EXAM: US LOWER EXTREMITY VENOUS LT CLINICAL HISTORY: LEFT LEG EDEMA R60.0 LUNG CANCER C34.31 ? DVT. TECHNIQUE: Lower extremity venous ultrasound performed using grayscale, color-flow, and spectral Do ppler analysis. COMPARISON: No exams were available for comparison FINDINGS: The common femoral, femoral and popliteal veins demonstrate normal compressibility, augmentation, and color Doppler. The posterior tibial veins are patent. No saphenous vein thrombosis or other superfi cial venous thrombosis is seen. No hematoma or Crowley's cyst is seen. IMPRESSION: Negative lower extremity ultrasound. No evidence of DVT. DATA REPOSITORY:
== END ==
PROVIDERS: PCP Student in an Organized Health Care Education/Training Program; Visit Provider Internal Medicine Medical Oncology
DX: R60.0 Localized edema (principal); C34.31 Malignant neoplasm of lower lobe, right bronchus or lung
CPT/HCPCS: 96365; 93971; J1756

== ENCOUNTER 2022-12-04 04:17 | Outpatient (RCR) | payer MEDICARE, SELFPAY ==
[2022-11-20] MEDS: Normal Saline Flush 10 ML SYR IVP (08:42)
[2022-11-20] MEDS: IRON SUCROSE COMPLEX 200 MG in Normal Saline 100 ML 440 MG IVPB (08:42)
[2022-11-27] MEDS: IRON SUCROSE COMPLEX 200 MG in Normal Saline 100 ML 440 MG IVPB (11:46)
[2022-11-27] MEDS: Normal Saline Flush 10 ML SYR IVP (11:46)
[2022-12-04] MEDS: Normal Saline Flush 10 ML SYR IVP (11:07)
[2022-12-04] MEDS: IRON SUCROSE COMPLEX 200 MG in Normal Saline 100 ML 440 MG IVPB (11:21)
== END 2022-12-13 23:59 | disposition home or self-care (01) ==
LOC: INF 04:17
PROVIDERS: PCP Student in an Organized Health Care Education/Training Program; Visit Provider Student in an Organized Health Care Education/Training Program
DX: D64.9 Anemia, unspecified (principal); R53.83 Other fatigue
CPT/HCPCS: 96365; J1756

== ENCOUNTER → 2022-12-06 13:34 | Outpatient (BNVA) | payer MEDICARE, SELFPAY | PROVIDERS: PCP Student in an Organized Health Care Education/Training Program; Referring Provider Student in an Organized Health Care Education/Training Program; Visit Provider Nurse Practitioner Gerontology | DX: B37.42 Candidal balanitis (principal); I10 Essential (primary) hypertension | CPT/HCPCS: 99213 ==

== ENCOUNTER 2023-01-07 02:13 | Outpatient (CLI) | payer MEDICARE, SELFPAY ==
[2023-01-07 13:45] LABS: Abs Immature Grans 0.09 10^3/uL (0.0-0.06); Absolute Basophil Count 0.06 10^3/uL (0.0-0.2); Absolute Eosinophil Count 0.06 10^3/uL (0.0-0.7); Absolute Lymphocyte Count 1.88 10^3/uL (1.2-3.4); Absolute Monocyte Count 0.91 10^3/uL (0.1-0.8); Absolute Neutrophil Count 5.41 10^3/uL (1.2-6.7); Basophils % 0.7; Eosinophils % 0.7; HCT 37.8 % (40.0-50.0); HGB 12.7 g/dL (13.5-17.5); Immature Grans % 1.1; Lymphocytes % 22.4; MCH 29.1 pg (27.0-33.0); MCHC 33.6 % (32.0-36.0); MCV 87 fL (80-95); MPV 9.3 fL (8.0-11.0); Monocytes % 10.8; Neutrophils % 64.3; Platelet Count 229 10^3/uL (130-400); RBC 4.36 10^6/uL (4.36-5.78); RDW 16.5 % (11.8-14.1); RDW-SD 52.4 fL; WBC 8.41 10^3/uL (4.4-10.8)
[2023-01-07 14:00] LABS: Lipase 34 U/L (16-77); Magnesium 1.8 mg/dL (1.8-2.4)
[2023-01-07 14:06] LABS: ALT 31 U/L (16-63); AST 24 U/L (15-37); Albumin 2.8 g/dL (3.4-5.0); Alkaline Phosphatase 108 U/L (46-116); Anion Gap 5.5 mmol/L (3-11); BUN 15 mg/dL (7-18); Bilirubin, Total 0.9 mg/dL (0.2-1.0); CO2 29.5 mmol/L (21.0-32.0); CREATININE 0.9 mg/dL (0.70-1.30); Chloride 99 mmol/L (98-107); Estimated GFR 86.34 (mL/min/1.73m2); Glucose 151 mg/dL (74-106); Potassium 3.4 mmol/L (3.5-5.1); Sodium 134 mmol/L (136-145); Total Protein 5.7 g/dL (6.4-8.2)
[2023-01-07 20:47] LABS: Iron 53 ug/dL (65-175); Total Iron Binding Capacity 155 ug/dL (250-450); Transferrin Sat 34 % (20-55)
[2023-01-09 09:42] LABS: Prealbumin 19 mg/dL (20-40)
== END 2023-01-07 02:14 | disposition home or self-care (01) ==
LOC: LBO 02:13
PROVIDERS: Nurse Practitioner Adult Health; PCP Student in an Organized Health Care Education/Training Program; Visit Provider Internal Medicine Medical Oncology
DX: R06.09 Other forms of dyspnea; R53.83 Other fatigue; R91.8 Other nonspecific abnormal finding of lung field; R60.0 Localized edema
CPT/HCPCS: 80053; 83690; 83540; 83550; 83735; 84134; 85018; 85025

== ENCOUNTER → 2023-01-29 00:48 | Outpatient (CLI) | payer MEDICARE, SELFPAY ==
--- NOTE | 2023-01-29 07:31 | DI.CT_ITS ---
Exam(s) CT CHEST/ABD/PEL W EXAM: CT CHEST/ABD/PEL W CLINICAL HISTORY: LUNG,LIVER LESIONS,LUNG CA.C34.31,ASSESS TREATMENT RESPONSE,R91.8,K76.9. TECHNIQUE: Imaging Protocol: Axial computed tomography images with coronal and sagittal reformatted images were created and reviewed CONTRAST MATERIAL: Intravenous: Omnipaque 350 Contrast volume:100 ml Oral: None COMPARISON: CR XR CHEST PORTABLE 1 VIEW from 10/30/2022 CT IR BIOPSY from 10/30/2022 FINDINGS: CHEST: LUNGS: The size of the malignant mass in the right lower lobe appears slightly smaller than on the pr one images from outside in tissues on CT scan of 10/30/2022. This mass now measures approximately 5 cm wide by 4.8 cm AP by 5 cm cephalocaudal.. There is a smaller slightly spiculated nodular infiltra te above this level in the right lower lobe measuring 1.1 x 1.0 cm and there is pleural thickening wh ich has appearance of probable loculated fluid over the right lower lobe at this level adjacent to th e mass. No significant focal findings in the right upper lobe. In the opposite-left lung there are no findings in the upper lobe. Small 5 millimeter nodular infiltrate noted in the left lower lobe. No left pleural effusion evident. There are no focal findings in trachea and mainstem bronchi. MEDIASTINUM: There is no obvious hilar adenopathy. Single slightly prominent subcarinal lymph node n oted. There is no adenopathy in the anterior mediastinal fat nor in the aortopulmonic window. Left hilum unremarkable. There is no supraclavicular adenopathy. No incidental axillary adenopathy. CARDIAC: Heart size upper normal. No pericardial effusion. Coronary artery calcification noted.Thor acic aorta appears unremarkable. No aneurysm. No dissection. OSSEOUS: No significant osseous lesions.No fractures.. ABDOMEN: There is no ascites. LIVER: There is an abnormal area of subcapsular hypodensity in the upper right hepatic lobe, posterio rly. Possibly metastatic but cannot exclude incidental hemangioma. There are no focal findings in t he left hepatic lobe. GALLBLADDER/BILIARY: Multiple gallstones are noted. No gallbladder wall edema. No calculi in the CB D. CBD is not dilated. Duodenal diverticulum noted the ampullary region. PANCREAS: No evidence of pancreatic mass nor dilatation of the pancreatic duct. SPLEEN: Spleen is not enlarged. There are no intrasplenic lesions. Splenic and portal veins are schwartz nt. ADRENALS: Right adrenal gland unremarkable. Slight thickening of the left adrenal gland but without a discernible mass. KIDNEYS: Right kidney unremarkable. There is a nonobstructive 3 millimeter calculus in the lower maddie e of the left kidney. Another possible calculus seen in the upper pole left kidney. Also nonobstruc tive.. No renal cysts nor solid renal masses evident. ABDOMINAL AORTA: Abdominal aorta is calcified-atherosclerotic. Upper normal diameter. The common il iac arteries are ectatic and peripherally calcified, exhibiting slightly prominent diameters of 1.7 c m-generalized arterial megaly but without focal aneurysms. There is also mild generalized arterial m egaly of both external iliac arteries. LYMPH NODES: There is no retroperitoneal nor paraaortic adenopathy. ABDOMINAL WALL: No evidence of significant anterior abdominal wall nor inguinal hernia. GI: There is no evidence of bowel obstruction. PELVIS: LYMPH NODES: There is no intrapelvic nor inguinal adenopathy. GI: No evidence of appendicitis.No evidence of sigmoid diverticulitis. URINARY BLADDER: Mild uniform thickening of the urinary bladder wall. Not overly distended. No dive rticuli. No intraluminal masses nor calculi. REPRODUCTIVE: Prostate gland is grossly enlarged, measuring 6.7 cm wide by 5 cm AP x 5 cm low caudal partially calcified. Does not inflated the bladder. Seminal vesicles unremarkable. There is no obt urator adenopathy. OSSEOUS: No significant osseous lesions. 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 Also advanced disc space narro wing at this level. Also advanced disc space narrowing at L4-5 level without listhesis at L4-5 level . IMPRESSION: 1. Large malignant-appearing right lower lobe mass appears slightly smaller than on prior prone image s from CT scan performed 10/30/2022 at [facility]. 2. Adjacent mild loculated pleural fluid, not associated with overlying rib destruction. Small nodul ar infiltrates evident in right lung field. Cannot exclude these being daughter metastases. There i s no obvious lymphadenopathy in the chest. 3. Subcapsular lesion noted in the right hepatic lobe which is difficult to delineate on this single sequence contrast infused study. It is not a simple cyst. Either represents metastatic disease or p ossible hemangioma, not possible to differentiate on this study. If clinically indicated further claritza dy of this with ultrasound or hemangioma protocol MRI can be performed. 4. Cholelithiasis without evidence of acute cholecystitis nor dilatation of the biliary tree. 5. Grossly enlarged prostate gland. Urinary bladder is not overly distended. 6. No lytic osseous lesions identified. 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 RADIATION DOSE DELIVERED: Total DLP DATA REPOSITORY: All CT scans at this facility are submitted to the National Radiology Data Registry (NRDR) Dose Index Registry (DIR) with the [employer] (ACR). RADIATION OPTIMIZATION: All CT scans at this facility use at least one of these dose optimization te chniques: automated exposure control; mA and/or kV adjustment per patient size (includes targeted exa ms where dose is matched to clinical indication); or iterative reconstruction.
[2023-01-29] MEDS: Barium Sulfate 2% W/V-Berry Smoothie 450 ML BTL 900 ML PO (08:49)
[2023-01-29] MEDS: Omnipaque 350 MG/ML 100 ML BTL IJ (10:31)
[2023-01-29] MEDS: Normal Saline - Diluent 50 ML VIAL IJ (10:31)
== END ==
PROVIDERS: PCP Student in an Organized Health Care Education/Training Program; Visit Provider Nurse Practitioner Family
DX: K76.9 Liver disease, unspecified (principal); R91.8 Other nonspecific abnormal finding of lung field
CPT/HCPCS: 74177; 71260; J3490

== ENCOUNTER 2023-02-04 03:47 | Outpatient (CLI) | payer MEDICARE, SELFPAY ==
[2023-02-04 08:49] LABS: Abs Immature Grans 0.03 10^3/uL (0.0-0.06); Absolute Basophil Count 0.07 10^3/uL (0.0-0.2); Absolute Eosinophil Count 0.09 10^3/uL (0.0-0.7); Absolute Lymphocyte Count 1.47 10^3/uL (1.2-3.4); Absolute Monocyte Count 0.85 10^3/uL (0.1-0.8); Absolute Neutrophil Count 6.57 10^3/uL (1.2-6.7); Basophils % 0.8; HCT 39.7 % (40.0-50.0); HGB 13.2 g/dL (13.5-17.5); Immature Grans % 0.3; Lymphocytes % 16.2; MCH 29.9 pg (27.0-33.0); MCHC 33.2 % (32.0-36.0); MCV 90 fL (80-95); MPV 9.7 fL (8.0-11.0); Monocytes % 9.4; Neutrophils % 72.3; Platelet Count 238 10^3/uL (130-400); RBC 4.42 10^6/uL (4.36-5.78); RDW 15.9 % (11.8-14.1); RDW-SD 52.7 fL; WBC 9.08 10^3/uL (4.4-10.8)
[2023-02-04 09:07] LABS: ALT 25 U/L (16-63); AST 26 U/L (15-37); Albumin 2.5 g/dL (3.4-5.0); Alkaline Phosphatase 91 U/L (46-116); Anion Gap 4.3 mmol/L (3-11); BUN 11 mg/dL (7-18); Bilirubin, Total 0.7 mg/dL (0.2-1.0); CO2 28.7 mmol/L (21.0-32.0); CREATININE 0.9 mg/dL (0.70-1.30); Calcium 8.6 mg/dL (8.5-10.1); Chloride 101 mmol/L (98-107); Estimated GFR 86.34 (mL/min/1.73m2); Glucose 130 mg/dL (74-106); Lipase 27 U/L (16-77); Magnesium 1.9 mg/dL (1.8-2.4); Potassium 4.2 mmol/L (3.5-5.1); Sodium 134 mmol/L (136-145); Total Protein 5.3 g/dL (6.4-8.2)
[2023-02-04 09:53] LABS: Iron 55 ug/dL (65-175)
[2023-02-04 10:54] LABS: FREE T4 1.22 ng/dL (0.76-1.46); TSH 3.58 uIU/mL (0.36-3.74)
== END 2023-02-04 03:48 | disposition home or self-care (01) ==
PROVIDERS: Internal Medicine Medical Oncology; PCP Student in an Organized Health Care Education/Training Program; Visit Provider Student in an Organized Health Care Education/Training Program
DX: R06.09 Other forms of dyspnea; R53.83 Other fatigue; R91.8 Other nonspecific abnormal finding of lung field; C79.31 Secondary malignant neoplasm of brain; R68.89 Other general symptoms and signs
CPT/HCPCS: 36415; 80053; 83690; 83540; 83735; 84439; 84443; 85018; 85025

== ENCOUNTER → 2023-02-11 01:39 | Outpatient (CLI) | payer MEDICARE, SELFPAY ==
--- NOTE | 2023-02-11 | DI.MRI_ITS ---
Exam(s) MR BRAIN WO/W EXAM: MR BRAIN WO/W CLINICAL HISTORY: SECONDARY MALIGNANT NEOPLASM BRAIN, C79.31. TECHNIQUE: Multiplanar multisequence MRI of the brain was performed. CONTRAST MATERIAL: IV Contrast: 18 ML of Dotarem contrast administered. COMPARISON: MR MR BRAIN WO/W from 10/26/2022 FINDINGS: VENTRICLES AND EXTRA AXIAL SPACES: Normal in size and morphology for the patient's age. HEMORRHAGE: None. CEREBRAL PARENCHYMA: No focus of restricted diffusion to suggest acute infarct. Marked interval decre ase in size of previously noted right frontal metastasis now measuring 1.4 cm in diameter compared wi th nearly 3 cm on the prior exam. enhancing lesion in the right frontal lobe in near the midline adams fariha measures 9 millimeters in diameter compared with 15mm on the prior exam. Small medial right quincy etal lesion has decreased in size. Left cerebellar hemisphere lesion shows considerable decrease in size, now measuring 15 millimeters in diameter compared to 19 on the prior exam. No new lesions. M ass effect no longer present. Minimal underlying white matter foci of small vessel disease. MIDLINE SHIFT: None. BRAINSTEM/CEREBELLUM: Normal. CALVARIUM: Normal. VISUALIZED PARANASAL SINUSES/MASTOIDS: Mild mucosal thickening. IMPRESSION: Significant interval decrease in size of brain metastases. Marked improvement of surrounding edema a nd mass effect. No new abnormalities identified. DATA REPOSITORY:
[2023-02-11] MEDS: Normal Saline Flush 10 ML SYR IVP (07:56)
[2023-02-11] MEDS: Gadoterate meglumine 20 ML SYRINGE 18 ML IVP (08:04)
== END ==
PROVIDERS: PCP Student in an Organized Health Care Education/Training Program; Visit Provider Radiology Radiation Oncology
DX: K76.9 Liver disease, unspecified (principal); C79.31 Secondary malignant neoplasm of brain
CPT/HCPCS: 70553

== ENCOUNTER → 2023-02-11 01:39 | Outpatient (CLI) | payer MEDICARE, SELFPAY ==
--- NOTE | 2023-02-11 07:30 | DI.US_ITS ---
Exam(s) US ABDOMEN LIMITED EXAM: US ABDOMEN LIMITED CLINICAL HISTORY: hemangioma vs met, liver lesion,k76.9 TECHNIQUE: Ultrasound abdomen performed using standard protocol. COMPARISON: CT CT CHEST W from 09/27/2022 CT IR BIOPSY from 10/30/[address] CHEST/ABD/PEL W from 01/29/2023 FINDINGS: Exam somewhat limited by overlying bowel gas. Portions of the liver, pancreas and right kidney were obscured. LIVER: Normal size and echogenicity. No focal liver lesions are seen. The lesion seen posterior up per of right lobe of the liver on prior CT is not visible on this exam. This is likely due to its lo cation adjacent to lung and diaphragm. It has decreased in size from the September through January CT exa minations, consistent with improvement in metastatic lesion. GALLBLADDER: cholelithiasis. No evidence of wall thickening. No pericholecystic fluid identified. STILES'S SIGN: Negative. BILIARY SYSTEM: No intrahepatic or extrahepatic biliary ductal dilation. Right kidney: No evidence of renal calculi. No evidence of hydronephrosis. No renal mass or cyst iden tified. PANCREAS: Normal where visualized. ABDOMINAL AORTA AND IVC: Visualized portions normal caliber. ASCITES: None seen. IMPRESSION: Liver lesion seen on recent CT is not visible by ultrasound. However this has decreased in size from the September CT examination, consistent with improvement in metastatic lesion. DATA REPOSITORY:
== END ==
PROVIDERS: PCP Student in an Organized Health Care Education/Training Program; Visit Provider Student in an Organized Health Care Education/Training Program
DX: K76.9 Liver disease, unspecified (principal)
CPT/HCPCS: 70553; 76705

== ENCOUNTER 2023-03-01 02:43 | Outpatient (CLI) | payer MEDICARE, SELFPAY ==
[2023-03-01 10:10] LABS: Abs Immature Grans 0.03 10^3/uL (0.0-0.06); Absolute Basophil Count 0.06 10^3/uL (0.0-0.2); Absolute Lymphocyte Count 1.82 10^3/uL (1.2-3.4); Absolute Monocyte Count 0.85 10^3/uL (0.1-0.8); Absolute Neutrophil Count 7.37 10^3/uL (1.2-6.7); Basophils % 0.6; HCT 42.4 % (40.0-50.0); HGB 13.9 g/dL (13.5-17.5); Immature Grans % 0.3; Lymphocytes % 17.8; MCH 30.5 pg (27.0-33.0); MCHC 32.8 % (32.0-36.0); MCV 93 fL (80-95); MPV 9.9 fL (8.0-11.0); Monocytes % 8.3; Platelet Count 213 10^3/uL (130-400); RBC 4.55 10^6/uL (4.36-5.78); RDW 13.3 % (11.8-14.1); RDW-SD 45.7 fL; WBC 10.23 10^3/uL (4.4-10.8)
[2023-03-01 10:21] LABS: Hemoglobin A1C 5.6 % (<5.7)
[2023-03-01 10:30] LABS: ALT 28 U/L (16-63); AST 24 U/L (15-37); Albumin 2.4 g/dL (3.4-5.0); Alkaline Phosphatase 86 U/L (46-116); Anion Gap 4.4 mmol/L (3-11); BUN 19 mg/dL (7-18); Bilirubin, Total 0.6 mg/dL (0.2-1.0); CO2 30.6 mmol/L (21.0-32.0); Calcium 8.5 mg/dL (8.5-10.1); Chloride 104 mmol/L (98-107); Estimated GFR 76.08 (mL/min/1.73m2); Glucose 132 mg/dL (74-106); Lipase 25 U/L (16-77); Magnesium 1.9 mg/dL (1.8-2.4); Potassium 4.2 mmol/L (3.5-5.1); Sodium 139 mmol/L (136-145); Total Protein 5.2 g/dL (6.4-8.2)
== END 2023-03-01 02:44 | disposition home or self-care (01) ==
LOC: LBO 02:44
PROVIDERS: PCP Student in an Organized Health Care Education/Training Program; Visit Provider Internal Medicine Medical Oncology
DX: E11.9 Type 2 diabetes mellitus without complications (principal); C34.31 Malignant neoplasm of lower lobe, right bronchus or lung; C79.31 Secondary malignant neoplasm of brain
CPT/HCPCS: 36415; 80053; 83690; 83036; 83735; 85018; 85025

== ENCOUNTER → 2023-03-05 08:00 | Outpatient (BNVA) | payer MEDICARE, SELFPAY | PROVIDERS: PCP Student in an Organized Health Care Education/Training Program; Referring Provider Student in an Organized Health Care Education/Training Program; Visit Provider Podiatrist | DX: L60.3 Nail dystrophy (principal); M79.674 Pain in right toe(s); M79.675 Pain in left toe(s); E11.42 Type 2 diabetes mellitus with diabetic polyneuropathy; L60.0 Ingrowing nail; L84 Corns and callosities; B35.3 Tinea pedis | CPT/HCPCS: 11721 ==

== ENCOUNTER 2023-03-13 03:09 | Outpatient (CLI) | payer MEDICARE, SELFPAY ==
[2023-03-13 10:06] LABS: Abs Immature Grans 0.03 10^3/uL (0.0-0.06); Absolute Basophil Count 0.06 10^3/uL (0.0-0.2); Absolute Monocyte Count 0.85 10^3/uL (0.1-0.8); Absolute Neutrophil Count 6.89 10^3/uL (1.2-6.7); Basophils % 0.6; Eosinophils % 2.1; HCT 42.2 % (40.0-50.0); HGB 13.9 g/dL (13.5-17.5); Immature Grans % 0.3; Lymphocytes % 14.8; MCH 30.5 pg (27.0-33.0); MCHC 32.9 % (32.0-36.0); MCV 93 fL (80-95); MPV 9.4 fL (8.0-11.0); Neutrophils % 73.2; Platelet Count 233 10^3/uL (130-400); RBC 4.56 10^6/uL (4.36-5.78); RDW 12.5 % (11.8-14.1); RDW-SD 42.8 fL; WBC 9.43 10^3/uL (4.4-10.8)
[2023-03-13 10:22] LABS: ALT 77 U/L (16-63); AST 51 U/L (15-37); Albumin 2.8 g/dL (3.4-5.0); Alkaline Phosphatase 84 U/L (46-116); Anion Gap 5.1 mmol/L (3-11); BUN 19 mg/dL (7-18); Bilirubin, Total 0.6 mg/dL (0.2-1.0); CO2 34.9 mmol/L (21.0-32.0); Chloride 98 mmol/L (98-107); Estimated GFR 76.08 (mL/min/1.73m2); Glucose 146 mg/dL (74-106); Lipase 23 U/L (16-77); Potassium 3.8 mmol/L (3.5-5.1); Sodium 138 mmol/L (136-145); Total Protein 6.4 g/dL (6.4-8.2)
== END 2023-03-13 03:10 | disposition home or self-care (01) ==
PROVIDERS: PCP Student in an Organized Health Care Education/Training Program; Visit Provider Internal Medicine Medical Oncology
DX: C34.31 Malignant neoplasm of lower lobe, right bronchus or lung
CPT/HCPCS: 36415; 80053; 83690; 83735; 85018; 85025

== ENCOUNTER 2023-03-15 01:45 | Outpatient (CLI) | payer MEDICARE, SELFPAY ==
[2023-03-15 15:48] LABS: HGB 13.7 g/dL (13.5-17.5)
[2023-03-15 16:02] LABS: Anion Gap 4.5 mmol/L (3-11); BUN 21 mg/dL (7-18); CO2 36.5 mmol/L (21.0-32.0); CREATININE 1.1 mg/dL (0.70-1.30); Chloride 97 mmol/L (98-107); Estimated GFR 67.86 (mL/min/1.73m2); Glucose 190 mg/dL (74-106); Potassium 3.1 mmol/L (3.5-5.1); Sodium 138 mmol/L (136-145)
== END 2023-03-15 01:46 | disposition home or self-care (01) ==
LOC: LBO 01:47
PROVIDERS: Absent Provider Student in an Organized Health Care Education/Training Program; PCP Student in an Organized Health Care Education/Training Program; Referring Provider Student in an Organized Health Care Education/Training Program; Visit Provider Student in an Organized Health Care Education/Training Program
DX: E87.8 Other disorders of electrolyte and fluid balance, not elsewhere classified (principal); R60.9 Edema, unspecified; Z79.899 Other long term (current) drug therapy; E61.1 Iron deficiency; R91.8 Other nonspecific abnormal finding of lung field
CPT/HCPCS: 36415; 80048; 83735; 85018

== ENCOUNTER 2023-03-18 20:26 | Outpatient (CLI) | payer MEDICARE, SELFPAY ==
[2023-03-18 14:51] LABS: Abs Immature Grans 0.03 10^3/uL (0.0-0.06); Absolute Basophil Count 0.04 10^3/uL (0.0-0.2); Absolute Eosinophil Count 0.26 10^3/uL (0.0-0.7); Absolute Lymphocyte Count 1.79 10^3/uL (1.2-3.4); Absolute Neutrophil Count 6.13 10^3/uL (1.2-6.7); Basophils % 0.4; Eosinophils % 2.9; HCT 41.3 % (40.0-50.0); HGB 13.7 g/dL (13.5-17.5); Immature Grans % 0.3; Lymphocytes % 19.8; MCH 30.4 pg (27.0-33.0); MCHC 33.2 % (32.0-36.0); MCV 92 fL (80-95); MPV 9.4 fL (8.0-11.0); Monocytes % 8.8; Neutrophils % 67.8; Platelet Count 280 10^3/uL (130-400); RBC 4.51 10^6/uL (4.36-5.78); RDW 12.1 % (11.8-14.1); RDW-SD 40.9 fL; WBC 9.05 10^3/uL (4.4-10.8)
[2023-03-18 15:26] LABS: ALT 74 U/L (16-63); AST 44 U/L (15-37); Albumin 3.2 g/dL (3.4-5.0); Alkaline Phosphatase 89 U/L (46-116); Anion Gap 4.3 mmol/L (3-11); BUN 21 mg/dL (7-18); Bilirubin, Direct 0.1 mg/dL (0.0-0.2); Bilirubin, Total 0.4 mg/dL (0.2-1.0); CO2 35.7 mmol/L (21.0-32.0); Calcium 9.3 mg/dL (8.5-10.1); Chloride 97 mmol/L (98-107); Estimated GFR 76.08 (mL/min/1.73m2); Glucose 151 mg/dL (74-106); Magnesium 2.2 mg/dL (1.8-2.4); Potassium 3.9 mmol/L (3.5-5.1); Sodium 137 mmol/L (136-145); Total Protein 6.8 g/dL (6.4-8.2)
== END 2023-03-18 20:27 | disposition home or self-care (01) ==
LOC: LBO 20:26
PROVIDERS: PCP Student in an Organized Health Care Education/Training Program; Visit Provider Nurse Practitioner Family
DX: R74.8 Abnormal levels of other serum enzymes (principal); E87.6 Hypokalemia; R60.9 Edema, unspecified; Z91.89 Other specified personal risk factors, not elsewhere classified
CPT/HCPCS: 36415; 80048; 80076; 83735; 85025

== ENCOUNTER 2023-03-20 02:57 | Outpatient (CLI) | payer MEDICARE, SELFPAY ==
[2023-03-20 10:55] LABS: Abs Immature Grans 0.04 10^3/uL (0.0-0.06); Absolute Basophil Count 0.07 10^3/uL (0.0-0.2); Absolute Eosinophil Count 0.25 10^3/uL (0.0-0.7); Absolute Lymphocyte Count 1.79 10^3/uL (1.2-3.4); Absolute Monocyte Count 1.02 10^3/uL (0.1-0.8); Absolute Neutrophil Count 7.08 10^3/uL (1.2-6.7); Basophils % 0.7; Eosinophils % 2.4; HCT 41.2 % (40.0-50.0); HGB 13.7 g/dL (13.5-17.5); Immature Grans % 0.4; Lymphocytes % 17.5; MCH 30.8 pg (27.0-33.0); MCHC 33.3 % (32.0-36.0); MCV 93 fL (80-95); MPV 9.8 fL (8.0-11.0); Platelet Count 290 10^3/uL (130-400); RBC 4.45 10^6/uL (4.36-5.78); RDW 12.2 % (11.8-14.1); RDW-SD 41.4 fL; WBC 10.25 10^3/uL (4.4-10.8)
[2023-03-20 11:16] LABS: ALT 64 U/L (16-63); AST 32 U/L (15-37); Albumin 3.1 g/dL (3.4-5.0); Alkaline Phosphatase 85 U/L (46-116); Anion Gap 6.2 mmol/L (3-11); BUN 22 mg/dL (7-18); Bilirubin, Total 0.6 mg/dL (0.2-1.0); CO2 33.8 mmol/L (21.0-32.0); Chloride 96 mmol/L (98-107); Estimated GFR 76.08 (mL/min/1.73m2); Glucose 141 mg/dL (74-106); Lipase 29 U/L (16-77); Magnesium 2.2 mg/dL (1.8-2.4); Potassium 3.9 mmol/L (3.5-5.1); Sodium 136 mmol/L (136-145); Total Protein 6.7 g/dL (6.4-8.2)
== END 2023-03-20 02:58 | disposition home or self-care (01) ==
PROVIDERS: PCP Student in an Organized Health Care Education/Training Program; Visit Provider Internal Medicine Medical Oncology
DX: C34.31 Malignant neoplasm of lower lobe, right bronchus or lung (principal); C79.71 Secondary malignant neoplasm of right adrenal gland
CPT/HCPCS: 36415; 80053; 83690; 83735; 85025

== ENCOUNTER 2023-03-26 04:56 | Outpatient (CLI) | payer MEDICARE, SELFPAY ==
[2023-03-26 16:02] LABS: Abs Immature Grans 0.03 10^3/uL (0.0-0.06); Absolute Basophil Count 0.06 10^3/uL (0.0-0.2); Absolute Eosinophil Count 0.13 10^3/uL (0.0-0.7); Absolute Lymphocyte Count 2.01 10^3/uL (1.2-3.4); Absolute Monocyte Count 0.71 10^3/uL (0.1-0.8); Basophils % 0.7; Eosinophils % 1.6; HGB 13.8 g/dL (13.5-17.5); Immature Grans % 0.4; Lymphocytes % 24.1; MCH 30.8 pg (27.0-33.0); MCHC 33.7 % (32.0-36.0); MCV 92 fL (80-95); MPV 9.7 fL (8.0-11.0); Monocytes % 8.5; Neutrophils % 64.7; Platelet Count 336 10^3/uL (130-400); RBC 4.48 10^6/uL (4.36-5.78); RDW 11.8 % (11.8-14.1); RDW-SD 39.5 fL; WBC 8.34 10^3/uL (4.4-10.8)
[2023-03-26 16:34] LABS: ALT 37 U/L (16-63); AST 22 U/L (15-37); Albumin 3.3 g/dL (3.4-5.0); Alkaline Phosphatase 85 U/L (46-116); Anion Gap 4.4 mmol/L (3-11); BUN 31 mg/dL (7-18); Bilirubin, Total 0.6 mg/dL (0.2-1.0); CO2 35.6 mmol/L (21.0-32.0); CREATININE 1.3 mg/dL (0.70-1.30); Calcium 9.2 mg/dL (8.5-10.1); Chloride 95 mmol/L (98-107); Estimated GFR 55.53 (mL/min/1.73m2); Glucose 195 mg/dL (74-106); Lipase 43 U/L (16-77); Magnesium 2.1 mg/dL (1.8-2.4); Potassium 3.6 mmol/L (3.5-5.1); Sodium 135 mmol/L (136-145); Total Protein 6.4 g/dL (6.4-8.2)
== END 2023-03-26 04:57 | disposition home or self-care (01) ==
PROVIDERS: PCP Student in an Organized Health Care Education/Training Program; Visit Provider Internal Medicine Medical Oncology
DX: C34.31 Malignant neoplasm of lower lobe, right bronchus or lung (principal)
CPT/HCPCS: 36415; 80053; 83690; 83735; 85025

== ENCOUNTER 2023-04-02 02:25 | Outpatient (CLI) | payer MEDICARE, SELFPAY ==
[2023-04-02 15:39] LABS: Abs Immature Grans 0.03 10^3/uL (0.0-0.06); Absolute Basophil Count 0.06 10^3/uL (0.0-0.2); Absolute Eosinophil Count 0.09 10^3/uL (0.0-0.7); Absolute Lymphocyte Count 2.38 10^3/uL (1.2-3.4); Absolute Monocyte Count 0.73 10^3/uL (0.1-0.8); Absolute Neutrophil Count 6.66 10^3/uL (1.2-6.7); Basophils % 0.6; Eosinophils % 0.9; HCT 41.3 % (40.0-50.0); HGB 13.9 g/dL (13.5-17.5); Immature Grans % 0.3; Lymphocytes % 23.9; MCH 30.5 pg (27.0-33.0); MCHC 33.7 % (32.0-36.0); MCV 91 fL (80-95); Monocytes % 7.3; Platelet Count 246 10^3/uL (130-400); RBC 4.55 10^6/uL (4.36-5.78); RDW 11.7 % (11.8-14.1); WBC 9.95 10^3/uL (4.4-10.8)
[2023-04-02 17:18] LABS: ALT 32 U/L (16-63); AST 24 U/L (15-37); Albumin 3.1 g/dL (3.4-5.0); Alkaline Phosphatase 87 U/L (46-116); Anion Gap 5.3 mmol/L (3-11); BUN 34 mg/dL (7-18); Bilirubin, Total 0.5 mg/dL (0.2-1.0); CO2 34.7 mmol/L (21.0-32.0); CREATININE 1.4 mg/dL (0.70-1.30); Calcium 8.9 mg/dL (8.5-10.1); Chloride 96 mmol/L (98-107); Estimated GFR 50.81 (mL/min/1.73m2); Glucose 205 mg/dL (74-106); Lipase 45 U/L (16-77); Potassium 4.3 mmol/L (3.5-5.1); Sodium 136 mmol/L (136-145); Total Protein 5.6 g/dL (6.4-8.2)
== END 2023-04-02 02:26 | disposition home or self-care (01) ==
LOC: LBO 02:25
PROVIDERS: Internal Medicine Medical Oncology; PCP Student in an Organized Health Care Education/Training Program; Visit Provider Student in an Organized Health Care Education/Training Program
DX: C34.31 Malignant neoplasm of lower lobe, right bronchus or lung (principal); C79.31 Secondary malignant neoplasm of brain
CPT/HCPCS: 36415; 80053; 83690; 83735; 85025

== ENCOUNTER 2023-04-10 01:24 | Outpatient (CLI) | payer MEDICARE, SELFPAY ==
[2023-04-10 09:09] LABS: Abs Immature Grans 0.04 10^3/uL (0.0-0.06); Absolute Basophil Count 0.04 10^3/uL (0.0-0.2); Absolute Eosinophil Count 0.11 10^3/uL (0.0-0.7); Absolute Lymphocyte Count 1.92 10^3/uL (1.2-3.4); Absolute Monocyte Count 0.81 10^3/uL (0.1-0.8); Basophils % 0.4; Eosinophils % 1.2; HCT 43.2 % (40.0-50.0); HGB 14.4 g/dL (13.5-17.5); Immature Grans % 0.4; Lymphocytes % 20.8; MCH 30.3 pg (27.0-33.0); MCHC 33.3 % (32.0-36.0); MCV 91 fL (80-95); MPV 10.1 fL (8.0-11.0); Monocytes % 8.8; Neutrophils % 68.4; Platelet Count 191 10^3/uL (130-400); RBC 4.75 10^6/uL (4.36-5.78); RDW 11.6 % (11.8-14.1); RDW-SD 38.9 fL; WBC 9.22 10^3/uL (4.4-10.8)
[2023-04-10 09:23] LABS: ALT 34 U/L (16-63); AST 27 U/L (15-37); Albumin 3.2 g/dL (3.4-5.0); Alkaline Phosphatase 93 U/L (46-116); Anion Gap 3.2 mmol/L (3-11); BUN 24 mg/dL (7-18); Bilirubin, Total 0.6 mg/dL (0.2-1.0); CO2 35.8 mmol/L (21.0-32.0); CREATININE 1.4 mg/dL (0.70-1.30); Calcium 8.9 mg/dL (8.5-10.1); Chloride 98 mmol/L (98-107); Estimated GFR 50.81 (mL/min/1.73m2); Glucose 140 mg/dL (74-106); Lipase 35 U/L (16-77); Potassium 3.8 mmol/L (3.5-5.1); Sodium 137 mmol/L (136-145); Total Protein 6.2 g/dL (6.4-8.2)
== END 2023-04-10 01:25 | disposition home or self-care (01) ==
PROVIDERS: PCP Student in an Organized Health Care Education/Training Program; Visit Provider Internal Medicine Medical Oncology
DX: C34.31 Malignant neoplasm of lower lobe, right bronchus or lung (principal); C79.31 Secondary malignant neoplasm of brain
CPT/HCPCS: 36415; 80053; 83690; 83735; 85025

== ENCOUNTER → 2023-04-16 00:16 | Outpatient (CLI) | payer MEDICARE, SELFPAY ==
--- NOTE | 2023-04-16 | DI.CT_ITS ---
Exam(s) CT CHEST/ABD/PEL W EXAM: CT CHEST/ABD/PEL W CLINICAL HISTORY: NSCLC, METS, ASSESS TREATMENT RESPONSE TECHNIQUE: Imaging Protocol: Axial computed tomography images with coronal and sagittal reformatted images were created and reviewed CONTRAST MATERIAL: Intravenous: Omnipaque 350 contrast volume:100 mL Oral: Yes COMPARISON: CT CT CHEST/ABD/PEL W from 01/29/2023 FINDINGS: CHEST: Tracheobronchial tree: Patent where visualized. Pulmonary parenchyma: The mass in the right lower lobe measures 4.5 x 5.2 cm. (Series 6, image 409). This compares to 5.2 x 6.1 cm using similar measuring techniques. (Series 16, image 460). The oth er opacities previously seen in the right middle, right upper and right lower lobe have improved comp ared to the prior examination from 01/29/2023. No new opacities are seen in the lungs. There is diff use interstitial fibrosis in the lungs. Visualized thyroid gland: Unremarkable. Mediastinum and Cheryl: The lymph nodes seen in the mediastinum appears stable. The esophagus is unrem arkable. Pleura: Small right pleural effusion has decreased in size. No left pleural effusion. No pneumothor ax. Heart: The heart is not dilated. Coronary artery calcifications are present. No pericardial effusion . Pulmonary arteries: No pulmonary emboli are identified. Aorta: Thoracic aorta non-dilated. Atherosclerosis. Lymph nodes: No significant axillary adenopathy. Soft tissues: Unremarkable. Bones:Within normal limits for the patient's age. There is a stable sclerotic focus in the right 9th rib laterally. ABDOMEN: Liver: Normal density. There has been an interval D increase in size and number of the hepatic metast ases. The mass in the posterior segment of the right lobe of the liver measures 4.2 x 3.3 cm. (Seri es 13, image 111. Three new masses are seen. The largest is adjacent to the gallbladder fossa and m easures 1.8 x 1.7 cm. (Series 13, image 129). Portal, Superior Mesenteric, and Splenic Veins: Unremarkable. Gallbladder and Biliary Tract: Cholelithiasis. No biliary ductal dilatation. Pancreas: Normal density, no abnormal calcifications or inflammatory process. There is a duodenal div erticulum adjacent to the head of the pancreas. Spleen: Normal. Adrenals: There is stable nodularity of the left adrenal gland. Kidneys: Normal size, contour and axis. No radiodense stones or obstructive uropathy. No masses seen. Abdominal Aorta: Abdominal portion non-dilated. Atherosclerosis. Bowel: No obstruction or bowel wall thickening. Appendix is unremarkable. Peritoneal Cavity: No ascites, collection or mesenteric inflammatory response. No free air. Lymph Nodes: Within normal limits. Bones: Within normal limits for the patient's age. 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 Soft Tissues: Unremarkable. PELVIS: Bladder: The urinary bladder is incompletely distended. There is thickening of the wall of the urina ry bladder which may be due to poor distension. Chronic bladder outlet obstruction or cystitis canno t be excluded. Reproductive Organs: The prostate gland is enlarged. Lymph Nodes: Within normal limits. Bones: Within normal limits. IMPRESSION: 1. Interval decrease in size of the right lower lobe mass. 2. Significant improvement in the right lung opacities since 01/29/2023. No new pulmonary nodules or masses are seen. 3. Interval increase in size and number of hepatic metastases since 01/30/2024. 4. Cholelithiasis. No biliary ductal dilatation. 5. Enlarged prostate gland. RADIATION DOSE DELIVERED: Total DLP DATA REPOSITORY: All CT scans at this facility are submitted to the National Radiology Data Registry (NRDR) Dose Index Registry (DIR) with the [employer] (A[employer]). RADIATION OPTIMIZATION: All CT scans at this facility use at least one of these dose optimization te chniques: automated exposure control; mA and/or kV adjustment per patient size (includes targeted exa ms where dose is matched to clinical indication); or iterative reconstruction.
[2023-04-16] MEDS: Omnipaque 350 MG/ML 100 ML BTL IJ (15:02)
[2023-04-16] MEDS: Normal Saline - Diluent 50 ML VIAL IJ (15:03)
[2023-04-16] MEDS: Barium Sulfate 2% W/V-Creamy Vanilla Smoothie 450 ML BTL PO (15:04)
== END ==
PROVIDERS: PCP Student in an Organized Health Care Education/Training Program; Visit Provider Nurse Practitioner Family
DX: K80.80 Other cholelithiasis without obstruction (principal); C34.31 Malignant neoplasm of lower lobe, right bronchus or lung; C78.7 Secondary malignant neoplasm of liver and intrahepatic bile duct
CPT/HCPCS: 74177; 71260; J3490

== ENCOUNTER 2023-04-18 04:08 | Outpatient (CLI) | payer MEDICARE, SELFPAY ==
[2023-04-18 11:30] LABS: Abs Immature Grans 0.01 10^3/uL (0.0-0.06); Absolute Basophil Count 0.02 10^3/uL (0.0-0.2); Absolute Eosinophil Count 0.11 10^3/uL (0.0-0.7); Absolute Lymphocyte Count 1.57 10^3/uL (1.2-3.4); Absolute Monocyte Count 0.54 10^3/uL (0.1-0.8); Absolute Neutrophil Count 3.56 10^3/uL (1.2-6.7); Basophils % 0.3; Eosinophils % 1.9; HCT 39.7 % (40.0-50.0); HGB 13.6 g/dL (13.5-17.5); Immature Grans % 0.2; MCH 30.2 pg (27.0-33.0); MCHC 34.3 % (32.0-36.0); MCV 88 fL (80-95); MPV 9.7 fL (8.0-11.0); Monocytes % 9.3; Neutrophils % 61.3; Platelet Count 164 10^3/uL (130-400); RBC 4.51 10^6/uL (4.36-5.78); RDW 11.9 % (11.8-14.1); RDW-SD 38.2 fL; WBC 5.81 10^3/uL (4.4-10.8)
[2023-04-18 11:57] LABS: ALT 32 U/L (16-63); AST 28 U/L (15-37); Albumin 2.6 g/dL (3.4-5.0); Alkaline Phosphatase 74 U/L (46-116); Anion Gap 4.4 mmol/L (3-11); BUN 12 mg/dL (7-18); Bilirubin, Total 0.5 mg/dL (0.2-1.0); CO2 32.6 mmol/L (21.0-32.0); CREATININE 1.1 mg/dL (0.70-1.30); Calcium 8.3 mg/dL (8.5-10.1); Chloride 96 mmol/L (98-107); Estimated GFR 67.86 (mL/min/1.73m2); Glucose 125 mg/dL (74-106); Lipase 34 U/L (16-77); Magnesium 1.9 mg/dL (1.8-2.4); Sodium 133 mmol/L (136-145); Total Protein 5.7 g/dL (6.4-8.2)
== END 2023-04-18 04:09 | disposition home or self-care (01) ==
PROVIDERS: Nurse Practitioner Family; PCP Student in an Organized Health Care Education/Training Program; Visit Provider Internal Medicine Medical Oncology
DX: C79.31 Secondary malignant neoplasm of brain (principal)
CPT/HCPCS: 36415; 80053; 83690; 83735; 85025

== ENCOUNTER 2023-04-22 05:12 | Outpatient (CLI) | payer MEDICARE, SELFPAY ==
[2023-04-22 10:49] LABS: Abs Immature Grans 0.04 10^3/uL (0.0-0.06); Absolute Basophil Count 0.03 10^3/uL (0.0-0.2); Absolute Lymphocyte Count 1.44 10^3/uL (1.2-3.4); Absolute Monocyte Count 0.92 10^3/uL (0.1-0.8); Absolute Neutrophil Count 6.53 10^3/uL (1.2-6.7); Basophils % 0.3; Eosinophils % 1.1; HCT 42.9 % (40.0-50.0); HGB 14.4 g/dL (13.5-17.5); Immature Grans % 0.4; Lymphocytes % 15.9; MCH 29.9 pg (27.0-33.0); MCHC 33.6 % (32.0-36.0); MCV 89 fL (80-95); MPV 9.4 fL (8.0-11.0); Monocytes % 10.2; Neutrophils % 72.1; Platelet Count 246 10^3/uL (130-400); RBC 4.81 10^6/uL (4.36-5.78); RDW 11.8 % (11.8-14.1); RDW-SD 38.4 fL; WBC 9.06 10^3/uL (4.4-10.8)
[2023-04-22 11:12] LABS: ALT 36 U/L (16-63); AST 28 U/L (15-37); Albumin 3.1 g/dL (3.4-5.0); Alkaline Phosphatase 84 U/L (46-116); Anion Gap 3.2 mmol/L (3-11); BUN 12 mg/dL (7-18); Bilirubin, Total 0.8 mg/dL (0.2-1.0); CO2 33.8 mmol/L (21.0-32.0); CREATININE 1.2 mg/dL (0.70-1.30); Calcium 9.3 mg/dL (8.5-10.1); Chloride 98 mmol/L (98-107); Estimated GFR 61.13 (mL/min/1.73m2); Glucose 119 mg/dL (74-106); Lipase 32 U/L (16-77); Magnesium 2.1 mg/dL (1.8-2.4); Sodium 135 mmol/L (136-145); Total Protein 6.2 g/dL (6.4-8.2)
== END 2023-04-22 05:13 | disposition home or self-care (01) ==
LOC: LBO 05:12
PROVIDERS: PCP Student in an Organized Health Care Education/Training Program; Visit Provider Internal Medicine Medical Oncology
DX: C79.31 Secondary malignant neoplasm of brain (principal); C34.31 Malignant neoplasm of lower lobe, right bronchus or lung
CPT/HCPCS: 36415; 80053; 83690; 83735; 85025

== ENCOUNTER 2023-05-06 04:53 | Outpatient (CLI) | payer MEDICARE, SELFPAY ==
[2023-05-06 15:21] LABS: Abs Immature Grans 0.04 10^3/uL (0.0-0.06); Absolute Basophil Count 0.06 10^3/uL (0.0-0.2); Absolute Eosinophil Count 0.13 10^3/uL (0.0-0.7); Absolute Lymphocyte Count 1.93 10^3/uL (1.2-3.4); Basophils % 0.6; Eosinophils % 1.4; HCT 40.6 % (40.0-50.0); Immature Grans % 0.4; Lymphocytes % 20.8; MCH 30.2 pg (27.0-33.0); MCHC 34.5 % (32.0-36.0); MCV 88 fL (80-95); Monocytes % 8.6; Neutrophils % 68.2; Platelet Count 244 10^3/uL (130-400); RBC 4.64 10^6/uL (4.36-5.78); RDW 12.8 % (11.8-14.1); RDW-SD 40.5 fL; WBC 9.26 10^3/uL (4.4-10.8)
[2023-05-06 15:39] LABS: ALT 29 U/L (16-63); AST 22 U/L (15-37); Albumin 2.9 g/dL (3.4-5.0); Alkaline Phosphatase 87 U/L (46-116); Anion Gap 5.8 mmol/L (3-11); BUN 16 mg/dL (7-18); Bilirubin, Total 0.5 mg/dL (0.2-1.0); CO2 34.2 mmol/L (21.0-32.0); CREATININE 1.3 mg/dL (0.70-1.30); Calcium 8.6 mg/dL (8.5-10.1); Chloride 98 mmol/L (98-107); Estimated GFR 55.53 (mL/min/1.73m2); Glucose 157 mg/dL (74-106); Lipase 34 U/L (16-77); Magnesium 1.9 mg/dL (1.8-2.4); Potassium 3.4 mmol/L (3.5-5.1); Sodium 138 mmol/L (136-145); Total Protein 5.8 g/dL (6.4-8.2)
== END 2023-05-06 04:54 | disposition home or self-care (01) ==
PROVIDERS: PCP Student in an Organized Health Care Education/Training Program; Visit Provider Internal Medicine Medical Oncology
DX: C79.31 Secondary malignant neoplasm of brain (principal)
CPT/HCPCS: 36415; 80053; 83690; 83735; 85025

== ENCOUNTER 2023-05-14 02:38 | Outpatient (CLI) | payer MEDICARE, SELFPAY ==
[2023-05-14 12:21] LABS: Anion Gap 4.8 mmol/L (3-11); BUN 19 mg/dL (7-18); CO2 34.2 mmol/L (21.0-32.0); CREATININE 1.2 mg/dL (0.70-1.30); Chloride 98 mmol/L (98-107); Estimated GFR 61.13 (mL/min/1.73m2); Glucose 106 mg/dL (74-106); Potassium 3.4 mmol/L (3.5-5.1); Sodium 137 mmol/L (136-145)
[2023-05-14 12:52] LABS: Hemoglobin A1C 6.6 % (<5.7)
== END 2023-05-14 02:39 | disposition home or self-care (01) ==
LOC: LBO 02:38
PROVIDERS: PCP Student in an Organized Health Care Education/Training Program; Visit Provider Student in an Organized Health Care Education/Training Program
DX: I10 Essential (primary) hypertension (principal); E11.9 Type 2 diabetes mellitus without complications
CPT/HCPCS: 36415; 80048; 83036; 83735

== ENCOUNTER 2023-05-20 05:10 | Outpatient (CLI) | payer MEDICARE, SELFPAY ==
[2023-05-20 12:02] LABS: Abs Immature Grans 0.04 10^3/uL (0.0-0.06); Absolute Basophil Count 0.07 10^3/uL (0.0-0.2); Absolute Monocyte Count 0.97 10^3/uL (0.1-0.8); Basophils % 0.6; Eosinophils % 1.3; HCT 41.8 % (40.0-50.0); HGB 14.4 g/dL (13.5-17.5); Immature Grans % 0.4; Lymphocytes % 21.5; MCH 30.1 pg (27.0-33.0); MCHC 34.4 % (32.0-36.0); MCV 87 fL (80-95); MPV 9.4 fL (8.0-11.0); Monocytes % 8.7; Neutrophils % 67.5; Platelet Count 251 10^3/uL (130-400); RBC 4.78 10^6/uL (4.36-5.78); RDW 12.9 % (11.8-14.1); RDW-SD 41.1 fL; WBC 11.18 10^3/uL (4.4-10.8)
[2023-05-20 12:03] LABS: Absolute Eosinophil Count 0.15 10^3/uL (0.0-0.7); Absolute Neutrophil Count 7.55 10^3/uL (1.2-6.7)
[2023-05-20 12:18] LABS: ALT 36 U/L (16-63); AST 28 U/L (15-37); Albumin 2.9 g/dL (3.4-5.0); Alkaline Phosphatase 85 U/L (46-116); Anion Gap 3.9 mmol/L (3-11); BUN 19 mg/dL (7-18); CO2 36.1 mmol/L (21.0-32.0); CREATININE 1.3 mg/dL (0.70-1.30); Calcium 8.9 mg/dL (8.5-10.1); Chloride 95 mmol/L (98-107); Estimated GFR 55.53 (mL/min/1.73m2); Glucose 112 mg/dL (74-106); Lipase 27 U/L (16-77); Magnesium 1.9 mg/dL (1.8-2.4); Potassium 3.5 mmol/L (3.5-5.1); Sodium 135 mmol/L (136-145); Total Protein 5.9 g/dL (6.4-8.2)
== END 2023-05-20 05:11 | disposition home or self-care (01) ==
LOC: LBO 05:10
PROVIDERS: PCP Student in an Organized Health Care Education/Training Program; Visit Provider Internal Medicine Medical Oncology
DX: C34.31 Malignant neoplasm of lower lobe, right bronchus or lung (principal)
CPT/HCPCS: 36415; 80053; 83690; 83735; 85025

== ENCOUNTER → 2023-05-27 00:46 | Outpatient (CLI) | payer MEDICARE, SELFPAY ==
--- NOTE | 2023-05-27 | DI.MRI_ITS ---
Exam(s) MR BRAIN WO/W EXAM: MR BRAIN WO/W CLINICAL HISTORY: LUNG CANCER W/ BRAIN METS, SP RAD THERAPY. TECHNIQUE: Multiplanar multisequence MRI of the brain was performed. CONTRAST MATERIAL: IV Contrast: 17 ML of Dotarem contrast administered. COMPARISON: MR MR BRAIN WO/W from 02/11/2023 FINDINGS: VENTRICLES AND EXTRA AXIAL SPACES: Normal in size and morphology for the patient's age. HEMORRHAGE: None. CEREBRAL PARENCHYMA: No focus of restricted diffusion to suggest acute infarct. No space-occupying le miguel identified. MIDLINE SHIFT: None. BRAINSTEM/CEREBELLUM: Significant interval decrease in size of previously noted metastatic lesion in the left cerebellum, now measuring 9 millimeters. Significant interval decrease of previously noted lesion in the high medial right medial frontal lobe, now 5 millimeters. Interval decrease in size of previously noted lesion lateral right frontal lobe now measuring roughly 6 millimeters in size. The re has been significant interval decrease in amount of surrounding white matter edema. Other tiny le miguel in the high right parietal lesion has also decreased in size. No new abnormalities. CALVARIUM: Normal. ENHANCEMENT: No suspicious enhancement identified. VISUALIZED PARANASAL SINUSES/MASTOIDS: Mucosal thickening right maxillary sinus. Orbits: Unremarkable. Pituitary: Normal. Vasculature: Normal flow voids. IMPRESSION: Significant interval improvement of previously noted brain metastases. DATA REPOSITORY:
[2023-05-27] MEDS: Normal Saline Flush 10 ML SYR IVP (07:55)
[2023-05-27] MEDS: Gadoterate meglumine 20 ML SYRINGE 17 ML IVP (07:56)
== END ==
PROVIDERS: PCP Student in an Organized Health Care Education/Training Program; Visit Provider Radiology Radiation Oncology
DX: C79.31 Secondary malignant neoplasm of brain (principal); C34.91 Malignant neoplasm of unspecified part of right bronchus or lung
CPT/HCPCS: 70553

== ENCOUNTER 2023-05-29 04:00 | Outpatient (CLI) | payer MEDICARE, SELFPAY ==
[2023-05-29 08:02] LABS: Abs Immature Grans 0.04 10^3/uL (0.0-0.06); Absolute Basophil Count 0.05 10^3/uL (0.0-0.2); Absolute Eosinophil Count 0.16 10^3/uL (0.0-0.7); Absolute Lymphocyte Count 2.06 10^3/uL (1.2-3.4); Absolute Monocyte Count 0.82 10^3/uL (0.1-0.8); Absolute Neutrophil Count 5.62 10^3/uL (1.2-6.7); Basophils % 0.6; Eosinophils % 1.8; HCT 40.1 % (40.0-50.0); HGB 13.6 g/dL (13.5-17.5); Immature Grans % 0.5; Lymphocytes % 23.5; MCH 29.8 pg (27.0-33.0); MCHC 33.9 % (32.0-36.0); MCV 88 fL (80-95); MPV 9.5 fL (8.0-11.0); Monocytes % 9.4; Neutrophils % 64.2; Platelet Count 230 10^3/uL (130-400); RBC 4.56 10^6/uL (4.36-5.78); RDW 13.2 % (11.8-14.1); RDW-SD 42.3 fL; WBC 8.75 10^3/uL (4.4-10.8)
[2023-05-29 08:42] LABS: ALT 41 U/L (16-63); AST 28 U/L (15-37); Albumin 2.8 g/dL (3.4-5.0); Alkaline Phosphatase 85 U/L (46-116); Anion Gap 4.3 mmol/L (3-11); BUN 16 mg/dL (7-18); Bilirubin, Total 0.9 mg/dL (0.2-1.0); CO2 34.7 mmol/L (21.0-32.0); CREATININE 1.2 mg/dL (0.70-1.30); Calcium 8.4 mg/dL (8.5-10.1); Chloride 97 mmol/L (98-107); Estimated GFR 61.13 (mL/min/1.73m2); Glucose 133 mg/dL (74-106); Lipase 30 U/L (16-77); Magnesium 1.9 mg/dL (1.8-2.4); Potassium 3.9 mmol/L (3.5-5.1); Sodium 136 mmol/L (136-145); Total Protein 5.6 g/dL (6.4-8.2)
== END 2023-05-29 04:01 | disposition home or self-care (01) ==
LOC: LBO 04:00
PROVIDERS: PCP Student in an Organized Health Care Education/Training Program; Visit Provider Internal Medicine Medical Oncology
DX: C34.31 Malignant neoplasm of lower lobe, right bronchus or lung (principal); C79.31 Secondary malignant neoplasm of brain
CPT/HCPCS: 36415; 80053; 83690; 83735; 85025

== ENCOUNTER → 2023-06-05 07:57 | Outpatient (BNVA) | payer MEDICARE, SELFPAY | PROVIDERS: PCP Student in an Organized Health Care Education/Training Program; Referring Provider Student in an Organized Health Care Education/Training Program; Visit Provider Podiatrist | DX: L60.0 Ingrowing nail (principal); L60.3 Nail dystrophy; E11.9 Type 2 diabetes mellitus without complications; L84 Corns and callosities; B35.3 Tinea pedis | CPT/HCPCS: 11721 ==

== ENCOUNTER 2023-06-12 03:09 | Outpatient (CLI) | payer MEDICARE, SELFPAY ==
[2023-06-12 08:33] LABS: Abs Immature Grans 0.01 10^3/uL (0.0-0.06); Absolute Basophil Count 0.01 10^3/uL (0.0-0.2); Absolute Eosinophil Count 0.04 10^3/uL (0.0-0.7); Absolute Lymphocyte Count 1.26 10^3/uL (1.2-3.4); Absolute Monocyte Count 0.79 10^3/uL (0.1-0.8); Absolute Neutrophil Count 3.46 10^3/uL (1.2-6.7); Basophils % 0.2; Eosinophils % 0.7; HCT 35.9 % (40.0-50.0); HGB 12.3 g/dL (13.5-17.5); Immature Grans % 0.2; Lymphocytes % 22.6; MCH 30.4 pg (27.0-33.0); MCHC 34.3 % (32.0-36.0); MCV 89 fL (80-95); MPV 8.9 fL (8.0-11.0); Monocytes % 14.2; Neutrophils % 62.1; Platelet Count 145 10^3/uL (130-400); RBC 4.04 10^6/uL (4.36-5.78); RDW 13.4 % (11.8-14.1); RDW-SD 41.4 fL; WBC 5.57 10^3/uL (4.4-10.8)
[2023-06-12 09:05] LABS: ALT 38 U/L (16-63); AST 27 U/L (15-37); Albumin 2.6 g/dL (3.4-5.0); Alkaline Phosphatase 95 U/L (46-116); Anion Gap 5.8 mmol/L (3-11); BUN 13 mg/dL (7-18); Bilirubin, Total 0.8 mg/dL (0.2-1.0); CO2 32.2 mmol/L (21.0-32.0); CREATININE 1.1 mg/dL (0.70-1.30); Calcium 8.1 mg/dL (8.5-10.1); Chloride 98 mmol/L (98-107); Estimated GFR 67.86 (mL/min/1.73m2); Glucose 133 mg/dL (74-106); Lipase 31 U/L (16-77); Magnesium 1.8 mg/dL (1.8-2.4); Potassium 3.9 mmol/L (3.5-5.1); Sodium 136 mmol/L (136-145); Total Protein 5.3 g/dL (6.4-8.2)
== END 2023-06-12 03:10 | disposition home or self-care (01) ==
LOC: LBO 03:09
PROVIDERS: PCP Student in an Organized Health Care Education/Training Program; Visit Provider Internal Medicine Medical Oncology
DX: C34.31 Malignant neoplasm of lower lobe, right bronchus or lung (principal); C79.31 Secondary malignant neoplasm of brain
CPT/HCPCS: 36415; 80053; 83690; 83735; 85025

== ENCOUNTER 2023-06-19 04:44 | Outpatient (CLI) | payer MEDICARE, SELFPAY ==
[2023-06-19 07:50] LABS: Abs Immature Grans 0.01 10^3/uL (0.0-0.06); Absolute Basophil Count 0.03 10^3/uL (0.0-0.2); Absolute Eosinophil Count 0.03 10^3/uL (0.0-0.7); Absolute Lymphocyte Count 1.18 10^3/uL (1.2-3.4); Absolute Monocyte Count 0.65 10^3/uL (0.1-0.8); Absolute Neutrophil Count 3.98 10^3/uL (1.2-6.7); Basophils % 0.5; Eosinophils % 0.5; HCT 37.3 % (40.0-50.0); HGB 12.6 g/dL (13.5-17.5); Immature Grans % 0.2; Lymphocytes % 20.1; MCH 30.7 pg (27.0-33.0); MCHC 33.8 % (32.0-36.0); MCV 91 fL (80-95); MPV 9.1 fL (8.0-11.0); Monocytes % 11.1; Neutrophils % 67.6; Platelet Count 225 10^3/uL (130-400); RBC 4.11 10^6/uL (4.36-5.78); RDW 14.6 % (11.8-14.1); RDW-SD 47.5 fL; WBC 5.88 10^3/uL (4.4-10.8)
[2023-06-19 08:22] LABS: AST 28 U/L (15-37); Albumin 2.6 g/dL (3.4-5.0); CREATININE 1.3 mg/dL (0.70-1.30); Calcium 8.2 mg/dL (8.5-10.1); Chloride 97 mmol/L (98-107); Estimated GFR 55.53 (mL/min/1.73m2); Lipase 28 U/L (16-77); Sodium 136 mmol/L (136-145)
[2023-06-19 08:56] LABS: ALT 33 U/L (16-63); Alkaline Phosphatase 96 U/L (46-116); BUN 18 mg/dL (7-18); Glucose 192 mg/dL (74-106); Magnesium 1.9 mg/dL (1.8-2.4); Potassium 3.6 mmol/L (3.5-5.1); Total Protein 5.4 g/dL (6.4-8.2)
[2023-06-19 17:35] LABS: PSA, Diagnostic 4.7 ng/mL (<=6.5)
== END 2023-06-19 04:45 | disposition home or self-care (01) ==
LOC: LBO 04:44
PROVIDERS: Urology; PCP Student in an Organized Health Care Education/Training Program; Visit Provider Internal Medicine Medical Oncology
DX: C79.31 Secondary malignant neoplasm of brain (principal); R97.20 Elevated prostate specific antigen [PSA]
CPT/HCPCS: 36415; 80053; 83690; 83735; 84153; 85025

== ENCOUNTER → 2023-06-25 14:30 | Outpatient (BNVA) | payer MEDICARE, SELFPAY | PROVIDERS: PCP Student in an Organized Health Care Education/Training Program; Visit Provider Urology | DX: R39.89 Other symptoms and signs involving the genitourinary system (principal); C34.91 Malignant neoplasm of unspecified part of right bronchus or lung; R97.20 Elevated prostate specific antigen [PSA] | CPT/HCPCS: 99214 ==

== ENCOUNTER → 2023-07-01 01:25 | Outpatient (CLI) | payer MEDICARE, SELFPAY ==
--- NOTE | 2023-07-01 | DI.CT_ITS ---
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 TECHNIQUE: Imaging Protocol: Axial computed tomography images with coronal and sagittal reformatted images were created and reviewed CONTRAST MATERIAL: Intravenous: Omnipaque 350 Contrast volume:100 ml Oral: yes / COMPARISON: CT CT CHEST/ABD/PEL W from 04/16/2023 FINDINGS: CHEST: Tracheobronchial tree: Patent where visualized. Pulmonary parenchyma: Interval decrease in size of right lower lobe mass, now measuring 4.2 x 3.4 com pared with 5.2 x 4.5 cm on the prior exam. No new nodules. Interstitial fibrosis. Pleura: No effusion or pneumothorax. Lymph nodes: Stable small lymph nodes. Aorta: Thoracic portion non-dilated. Atherosclerotic changes. Heart: No pericardial effusion. Coronary artery calcifications are noted. Bones: Stable small sclerotic focus in the right 9th rib. No lytic lesions.No compression fractures . Soft tissues: Mild bilateral gynecomastia. ABDOMEN and PELVIS: Liver: Normal density. Mild interval decrease in size of liver masses, with the larger lesion measuri ng 3.9 x 2.6 cm compared with 4.2 x 3.3 cm. The lesion near the gallbladder fossa also is slightly s maller. No new liver lesions. Gallbladder and biliary tract: Cholelithiasis. No biliary dilatation. Pancreas: Normal density, no abnormal calcifications or inflammatory process. Spleen: Normal. Kidneys: Normal size, contour and axis. No radiodense stones. No obstructive uropathy. No suspicious masses seen. Adrenal glands: Stable small left adrenal nodularity. Aorta: Abdominal portion non-dilated. Lymph nodes: Within normal limits. Soft tissues: Unremarkable. Bladder: Unremarkable. Bowel: Duodenal diverticulum. No obstruction or bowel wall thickening. Moderate quantity of stool. Appendix is normal. There are few scattered diverticula. Peritoneal cavity: No ascites. No focal collection. No mesenteric inflammatory response. Bones: L5 spondylolysis and L5-S1 spondylolisthesis, unchanged. No compression fracture, lytic or bl astic lesions are identified. Degenerative disc changes greatest at L4-5 and L5-S1. Reproductive organs: Markedly enlarged prostate. IMPRESSION: Mild decrease in size of right lower lobe mass. Mild interval decrease in liver metastases. No new findings. RADIATION DOSE DELIVERED: Total DLP DATA REPOSITORY: All CT scans at this facility are submitted to the National Radiology Data Registry (NRDR) Dose Index Registry (DIR) with the [employer] (ACR). RADIATION OPTIMIZATION: All CT scans at this facility use at least one of these dose optimization te chniques: automated exposure control; mA and/or kV adjustment per patient size (includes targeted exa ms where dose is matched to clinical indication); or iterative reconstruction.
[2023-07-01] MEDS: Barium Sulfate 2% W/V-Creamy Vanilla Smoothie 450 ML BTL PO ×2 (10:53→10:54)
[2023-07-01] MEDS: Normal Saline - Diluent 50 ML VIAL IJ (13:08)
[2023-07-01] MEDS: Omnipaque 350 MG/ML 100 ML BTL IJ (13:09)
== END ==
PROVIDERS: PCP Student in an Organized Health Care Education/Training Program; Visit Provider Nurse Practitioner Family
DX: C34.31 Malignant neoplasm of lower lobe, right bronchus or lung (principal); C78.7 Secondary malignant neoplasm of liver and intrahepatic bile duct
CPT/HCPCS: 74177; 71260; J3490

== ENCOUNTER 2023-07-08 05:05 | Outpatient (CLI) | payer MEDICARE, SELFPAY ==
[2023-07-08 10:35] LABS: Abs Immature Grans 0.02 10^3/uL (0.0-0.06); Absolute Basophil Count 0.02 10^3/uL (0.0-0.2); Absolute Eosinophil Count 0.02 10^3/uL (0.0-0.7); Absolute Lymphocyte Count 1.34 10^3/uL (1.2-3.4); Absolute Monocyte Count 0.83 10^3/uL (0.1-0.8); Absolute Neutrophil Count 4.27 10^3/uL (1.2-6.7); Basophils % 0.3; Eosinophils % 0.3; HCT 35.7 % (40.0-50.0); HGB 11.9 g/dL (13.5-17.5); Immature Grans % 0.3; Lymphocytes % 20.6; MCH 32.2 pg (27.0-33.0); MCHC 33.3 % (32.0-36.0); MCV 97 fL (80-95); MPV 9.1 fL (8.0-11.0); Monocytes % 12.8; Neutrophils % 65.7; Platelet Count 254 10^3/uL (130-400); RBC 3.69 10^6/uL (4.36-5.78); RDW 16.9 % (11.8-14.1)
[2023-07-08 11:09] LABS: ALT 61 U/L (16-63); AST 46 U/L (15-37); Albumin 3.2 g/dL (3.4-5.0); Alkaline Phosphatase 90 U/L (46-116); Anion Gap 4.4 mmol/L (3-11); BUN 13 mg/dL (7-18); Bilirubin, Total 0.8 mg/dL (0.2-1.0); CO2 35.6 mmol/L (21.0-32.0); CREATININE 0.9 mg/dL (0.70-1.30); Calcium 8.8 mg/dL (8.5-10.1); Chloride 99 mmol/L (98-107); Estimated GFR 86.34 (mL/min/1.73m2); FREE T4 0.87 ng/dL (0.76-1.46); Glucose 120 mg/dL (74-106); Magnesium 2.3 mg/dL (1.8-2.4); Potassium 3.7 mmol/L (3.5-5.1); Sodium 139 mmol/L (136-145); TSH 4.66 uIU/Ml (0.36-3.74); Total Protein 6.5 g/dL (6.4-8.2)
== END 2023-07-08 05:06 | disposition home or self-care (01) ==
LOC: LBO 05:06
PROVIDERS: PCP Student in an Organized Health Care Education/Training Program; Visit Provider Internal Medicine Medical Oncology
DX: Z79.899 Other long term (current) drug therapy (principal); C34.31 Malignant neoplasm of lower lobe, right bronchus or lung
CPT/HCPCS: 36415; 80053; 83735; 84439; 84443; 85025

== ENCOUNTER 2023-07-17 05:03 | Outpatient (CLI) | payer MEDICARE, SELFPAY ==
[2023-07-17 12:00] LABS: Abs Immature Grans 0.02 10^3/uL (0.0-0.06); Absolute Basophil Count 0.02 10^3/uL (0.0-0.2); Absolute Eosinophil Count 0.02 10^3/uL (0.0-0.7); Absolute Lymphocyte Count 1.27 10^3/uL (1.2-3.4); Absolute Monocyte Count 0.56 10^3/uL (0.1-0.8); Basophils % 0.6; Eosinophils % 0.6; HCT 31.5 % (40.0-50.0); HGB 10.5 g/dL (13.5-17.5); Immature Grans % 0.6; MCH 32.2 pg (27.0-33.0); MCHC 33.3 % (32.0-36.0); MCV 97 fL (80-95); MPV 9.1 fL (8.0-11.0); Monocytes % 15.9; Neutrophils % 46.3; Platelet Count 162 10^3/uL (130-400); RBC 3.26 10^6/uL (4.36-5.78); RDW 15.2 % (11.8-14.1); RDW-SD 53.3 fL; WBC 3.53 10^3/uL (4.4-10.8)
[2023-07-17 12:02] LABS: Absolute Neutrophil Count 1.63 10^3/uL (1.2-6.7)
[2023-07-17 12:28] LABS: ALT 57 U/L (16-63); AST 39 U/L (15-37); Albumin 3.3 g/dL (3.4-5.0); Alkaline Phosphatase 91 U/L (46-116); Anion Gap 6.4 mmol/L (3-11); BUN 16 mg/dL (7-18); Bilirubin, Total 0.6 mg/dL (0.2-1.0); CO2 34.6 mmol/L (21.0-32.0); CREATININE 0.9 mg/dL (0.70-1.30); Calcium 8.9 mg/dL (8.5-10.1); Chloride 100 mmol/L (98-107); Estimated GFR 86.34 (mL/min/1.73m2); Glucose 89 mg/dL (74-106); Lipase 31 U/L (16-77); Magnesium 2.2 mg/dL (1.8-2.4); Potassium 3.6 mmol/L (3.5-5.1); Sodium 141 mmol/L (136-145); TSH 3.32 uIU/Ml (0.36-3.74); Total Protein 6.7 g/dL (6.4-8.2)
== END 2023-07-17 05:04 | disposition home or self-care (01) ==
PROVIDERS: PCP Student in an Organized Health Care Education/Training Program; Visit Provider Internal Medicine Medical Oncology
DX: Z79.899 Other long term (current) drug therapy (principal); C79.31 Secondary malignant neoplasm of brain
CPT/HCPCS: 36415; 80053; 83690; 83735; 84439; 84443; 85025

== ENCOUNTER 2023-08-05 05:06 | Outpatient (CLI) | payer MEDICARE, SELFPAY ==
[2023-08-05 14:10] LABS: Abs Immature Grans 0.03 10^3/uL (0.0-0.06); Absolute Basophil Count 0.03 10^3/uL (0.0-0.2); Absolute Eosinophil Count 0.05 10^3/uL (0.0-0.7); Absolute Lymphocyte Count 1.73 10^3/uL (1.2-3.4); Absolute Monocyte Count 0.72 10^3/uL (0.1-0.8); Absolute Neutrophil Count 5.12 10^3/uL (1.2-6.7); Basophils % 0.4; Eosinophils % 0.7; HCT 37.3 % (40.0-50.0); HGB 12.8 g/dL (13.5-17.5); Immature Grans % 0.4; Lymphocytes % 22.5; MCHC 34.3 % (32.0-36.0); MCV 99 fL (80-95); MPV 9.6 fL (8.0-11.0); Monocytes % 9.4; Neutrophils % 66.6; Platelet Count 222 10^3/uL (130-400); RBC 3.76 10^6/uL (4.36-5.78); RDW 15.3 % (11.8-14.1); RDW-SD 55.8 fL; WBC 7.68 10^3/uL (4.4-10.8)
[2023-08-05 14:26] LABS: ALT 33 U/L (16-63); AST 30 U/L (15-37); Albumin 3.5 g/dL (3.4-5.0); Alkaline Phosphatase 94 U/L (46-116); Anion Gap 6.5 mmol/L (3-11); BUN 16 mg/dL (7-18); Bilirubin, Total 0.6 mg/dL (0.2-1.0); CO2 35.5 mmol/L (21.0-32.0); CREATININE 1.1 mg/dL (0.70-1.30); Calcium 8.7 mg/dL (8.5-10.1); Chloride 99 mmol/L (98-107); Estimated GFR 67.86 (mL/min/1.73m2); FREE T4 1.04 ng/dL (0.76-1.46); Glucose 215 mg/dL (74-106); Lipase 33 U/L (16-77); Magnesium 2.1 mg/dL (1.8-2.4); Potassium 3.6 mmol/L (3.5-5.1); Sodium 141 mmol/L (136-145); TSH 2.48 uIU/Ml (0.36-3.74); Total Protein 6.8 g/dL (6.4-8.2)
== END 2023-08-05 05:07 | disposition home or self-care (01) ==
LOC: LBO 05:07
PROVIDERS: PCP Student in an Organized Health Care Education/Training Program; Visit Provider Internal Medicine Medical Oncology
DX: Z79.899 Other long term (current) drug therapy (principal); C34.31 Malignant neoplasm of lower lobe, right bronchus or lung; C79.31 Secondary malignant neoplasm of brain
CPT/HCPCS: 36415; 80053; 83690; 83735; 84439; 84443; 85025

== ENCOUNTER 2023-08-26 04:51 | Outpatient (CLI) | payer MEDICARE, SELFPAY ==
[2023-08-26 13:08] LABS: Abs Immature Grans 0.02 10^3/uL (0.0-0.06); Absolute Basophil Count 0.03 10^3/uL (0.0-0.2); Absolute Eosinophil Count 0.05 10^3/uL (0.0-0.7); Absolute Monocyte Count 0.69 10^3/uL (0.1-0.8); Basophils % 0.6 %; HCT 36.7 % (40.0-50.0); HGB 12.7 g/dL (13.5-17.5); Immature Grans % 0.4 %; Lymphocytes % 27.5 %; MCHC 34.6 % (32.0-36.0); MCV 98 fL (80-95); MPV 9.5 fL (8.0-11.0); Monocytes % 13.6 %; Neutrophils % 56.9 %; Platelet Count 209 10^3/uL (130-400); RBC 3.74 10^6/uL (4.36-5.78); RDW 14.2 % (11.8-14.1); RDW-SD 51.4 fL; WBC 5.09 10^3/uL (4.4-10.8)
[2023-08-26 13:35] LABS: ALT 34 U/L (16-63); AST 30 U/L (15-37); Albumin 3.6 g/dL (3.4-5.0); Alkaline Phosphatase 83 U/L (46-116); Anion Gap 6.1 mmol/L (3-11); BUN 16 mg/dL (7-18); Bilirubin, Total 0.5 mg/dL (0.2-1.0); CO2 35.9 mmol/L (21.0-32.0); Chloride 99 mmol/L (98-107); Estimated GFR 76.08 (mL/min/1.73m2); Glucose 182 mg/dL (74-106); Lipase 29 U/L (16-77); Magnesium 2.1 mg/dL (1.8-2.4); Potassium 3.6 mmol/L (3.5-5.1); Sodium 141 mmol/L (136-145); Total Protein 6.7 g/dL (6.4-8.2)
== END 2023-08-26 04:52 | disposition home or self-care (01) ==
LOC: LBO 04:51
PROVIDERS: PCP Student in an Organized Health Care Education/Training Program; Visit Provider Internal Medicine Medical Oncology
DX: C34.31 Malignant neoplasm of lower lobe, right bronchus or lung (principal); C79.31 Secondary malignant neoplasm of brain
CPT/HCPCS: 36415; 80053; 83690; 83735; 85025

== ENCOUNTER → 2023-09-05 01:30 | Outpatient (CLI) | payer MEDICARE, SELFPAY ==
--- NOTE | 2023-09-05 | DI.MRI_ITS ---
Exam(s) MR BRAIN WO/W EXAM: MR BRAIN WO/W CLINICAL HISTORY: C34.90,C79.31 Lung CA mets to brain TECHNIQUE: Multiplanar multisequence MRI of the brain was performed. Both noninfused and contrast i nfused sequences were performed. IV Contrast injected was 17 cc Dotarem. COMPARISON: MR MR BRAIN WO/W from 02/11/2023 MR MR BRAIN WO/W from 05/27/2023 FINDINGS: CEREBRAL PARENCHYMA: The enhancing lesion in the lateral left cerebellar hemisphere is unchanged from 05/27/2023 and remai ns smaller than 02/11/2023. There are no new enhancing lesions in the cerebellar hemispheres. The lesion in the right frontal lobe also appears significantly smaller than 02/11/2023, appearing un changed from 05/27/2023. Amount of surrounding edema is unchanged from 05/27/2023. The lesion in th e high right midline also is unchanged from 2 tell 24 and smaller than 02/11/2023. A smaller lesion in the high right parietal lobe which was evident 02/11/2023 and smaller on 05/27/2023 is again uncha nged from 05/27/2023, remaining smaller. There is a small enhancing lesion medial to the atrium of t he right lateral ventricle which is unchanged from 05/27/2023 but was actually not present on the claritza dy of 02/11/2023. There is less surrounding edema at this level on the present study. Of concern on the present study is a small ring-enhancing lesion in the right frontal lobe anterior f orceps white matter which is slightly increased in size and amount of surrounding edema has also incr eased.. PITUITARY GLAND: No mass nor parasellar abnormality. No obvious abnormality in the cavernous sinuses. FLOW VOIDS: The expected flow void are noted. No evidence of obvious aneurysm nor obvious vascular ma lformation. PARANASAL SINUSES: Mucosal thickening noted in the right maxillary sinus, unchanged. No associated f luid level. However, there is prominent effusion in the left mastoid air cells now evident, not prev iously present on the study of 05/27/2023. Right mastoid air cells exhibit minimal signal abnormalit y. ORBITS: No obvious abnormal findings. IMPRESSION: 1. Compared to the MRI scan of 05/27/2023 the most anterior lesion in the right frontal lobe has slig htly increased in size and exhibits increased surrounding edema. 2. Most of the other lesions remain stable when compared to 05/27/2023. 3. New left mastoiditis. DATA REPOSITORY:
[2023-09-05] MEDS: Normal Saline Flush 10 ML SYR IVP (08:08)
[2023-09-05] MEDS: Gadoterate meglumine 20 ML SYRINGE 17 ML IVP (08:09)
== END ==
PROVIDERS: PCP Student in an Organized Health Care Education/Training Program; Visit Provider Nurse Practitioner
DX: C34.91 Malignant neoplasm of unspecified part of right bronchus or lung (principal); C79.31 Secondary malignant neoplasm of brain
CPT/HCPCS: 70553

== ENCOUNTER → 2023-09-06 15:25 | Outpatient (CLI) | payer MEDICARE, SELFPAY ==
--- NOTE | 2023-09-06 15:45 | DI.US_ITS ---
Exam(s) US LOWER EXTREMITY VENOUS LT EXAM: US LOWER EXTREMITY VENOUS LT CLINICAL HISTORY: R22.9 warm, swolllen, hard this am R60.0 EDEMA TECHNIQUE: Grayscale, color, and doppler imaging of the deep venous system of the left lower extremi ty was performed. COMPARISON: No exams were available for comparison FINDINGS: There is no evidence of intraluminal thrombus and there is normal compression and augmentation demons trated within the common femoral vein, femoral vein, and popliteal vein. In the ipsilateral calf the interrogated veins also exhibit normal compression/ augmentation properti es. Ipsilateral greater saphenous vein is also patent. The ipsilateral saphenofemoral junction is patent. IMPRESSION: 1. No evidence of DVT in the left lower extremity. DATA REPOSITORY:
== END ==
PROVIDERS: PCP Student in an Organized Health Care Education/Training Program; Visit Provider Student in an Organized Health Care Education/Training Program
DX: R60.0 Localized edema (principal)
CPT/HCPCS: 93971

== ENCOUNTER → 2023-09-11 08:55 | Outpatient (BNVA) | payer MEDICARE, SELFPAY | PROVIDERS: PCP Student in an Organized Health Care Education/Training Program; Referring Provider Student in an Organized Health Care Education/Training Program; Visit Provider Podiatrist | DX: L60.0 Ingrowing nail (principal); E11.8 Type 2 diabetes mellitus with unspecified complications; L60.3 Nail dystrophy; L84 Corns and callosities; C34.90 Malignant neoplasm of unspecified part of unspecified bronchus or lung; C79.31 Secondary malignant neoplasm of brain; B35.3 Tinea pedis; B35.1 Tinea unguium; M79.674 Pain in right toe(s); M79.675 Pain in left toe(s) | CPT/HCPCS: 11719; 11720 ==

== ENCOUNTER 2023-09-18 05:29 | Outpatient (CLI) | payer MEDICARE, SELFPAY ==
[2023-09-18 09:52] LABS: Abs Immature Grans 0.02 10^3/uL (0.0-0.06); Absolute Basophil Count 0.06 10^3/uL (0.0-0.2); Absolute Eosinophil Count 0.06 10^3/uL (0.0-0.7); Absolute Lymphocyte Count 1.49 10^3/uL (1.2-3.4); Absolute Monocyte Count 0.86 10^3/uL (0.1-0.8); Absolute Neutrophil Count 3.71 10^3/uL (1.2-6.7); HCT 36.2 % (40.0-50.0); HGB 12.1 g/dL (13.5-17.5); Immature Grans % 0.3 %; MCH 33.2 pg (27.0-33.0); MCHC 33.4 % (32.0-36.0); MCV 99 fL (80-95); MPV 9.3 fL (8.0-11.0); Monocytes % 13.9 %; Neutrophils % 59.8 %; Platelet Count 257 10^3/uL (130-400); RBC 3.65 10^6/uL (4.36-5.78); RDW 13.4 % (11.8-14.1); RDW-SD 48.7 fL
[2023-09-18 10:17] LABS: ALT 29 U/L (16-63); AST 31 U/L (15-37); Albumin 3.4 g/dL (3.4-5.0); Alkaline Phosphatase 84 U/L (46-116); Anion Gap 6.8 mmol/L (3-11); BUN 18 mg/dL (7-18); Bilirubin, Total 0.5 mg/dL (0.2-1.0); CO2 32.2 mmol/L (21.0-32.0); CREATININE 0.9 mg/dL (0.70-1.30); Calcium 8.8 mg/dL (8.5-10.1); Chloride 101 mmol/L (98-107); FREE T4 1.01 ng/dL (0.76-1.46); Glucose 113 mg/dL (74-106); Lipase 33 U/L (16-77); Potassium 3.5 mmol/L (3.5-5.1); Sodium 140 mmol/L (136-145); TSH 1.97 uIU/Ml (0.36-3.74); Total Protein 6.7 g/dL (6.4-8.2)
== END 2023-09-18 05:30 | disposition home or self-care (01) ==
LOC: LBO 05:29
PROVIDERS: PCP Student in an Organized Health Care Education/Training Program; Visit Provider Internal Medicine Medical Oncology
DX: Z79.899 Other long term (current) drug therapy (principal); C34.31 Malignant neoplasm of lower lobe, right bronchus or lung
CPT/HCPCS: 36415; 80053; 83690; 83735; 84439; 84443; 85025

== ENCOUNTER 2023-09-25 01:31 | Outpatient (CLI) | payer MEDICARE, SELFPAY ==
[2023-09-25 14:04] LABS: Abs Immature Grans 0.02 10^3/uL (0.0-0.06); Absolute Basophil Count 0.04 10^3/uL (0.0-0.2); Absolute Eosinophil Count 0.02 10^3/uL (0.0-0.7); Absolute Lymphocyte Count 0.61 10^3/uL (1.2-3.4); Absolute Neutrophil Count 3.02 10^3/uL (1.2-6.7); Eosinophils % 0.5 %; HCT 34.5 % (40.0-50.0); HGB 11.6 g/dL (13.5-17.5); Immature Grans % 0.5 %; Lymphocytes % 14.8 %; MCH 33.3 pg (27.0-33.0); MCHC 33.6 % (32.0-36.0); MCV 99 fL (80-95); MPV 9.6 fL (8.0-11.0); Monocytes % 9.7 %; Neutrophils % 73.5 %; Platelet Count 123 10^3/uL (130-400); RBC 3.48 10^6/uL (4.36-5.78); RDW 12.7 % (11.8-14.1); RDW-SD 45.4 fL; WBC 4.11 10^3/uL (4.4-10.8)
[2023-09-25 14:21] LABS: Anion Gap 5.3 mmol/L (3-11); BUN 14 mg/dL (7-18); CO2 31.7 mmol/L (21.0-32.0); Calcium 9.2 mg/dL (8.5-10.1); Chloride 100 mmol/L (98-107); Estimated GFR 75.61 (mL/min/1.73m2); Glucose 192 mg/dL (74-106); Magnesium 1.8 mg/dL (1.8-2.4); Sodium 137 mmol/L (136-145)
== END 2023-09-25 01:32 | disposition home or self-care (01) ==
PROVIDERS: PCP Student in an Organized Health Care Education/Training Program; Referring Provider Student in an Organized Health Care Education/Training Program; Visit Provider Student in an Organized Health Care Education/Training Program
DX: Z91.89 Other specified personal risk factors, not elsewhere classified (principal); D64.9 Anemia, unspecified; Z51.11 Encounter for antineoplastic chemotherapy; I10 Essential (primary) hypertension
CPT/HCPCS: 36415; 80048; 83735; 85025

== ENCOUNTER → 2023-10-01 15:13 | Outpatient (CLI) | payer MEDICARE, SELFPAY ==
--- NOTE | 2023-10-01 14:00 | DI.US_ITS ---
Exam(s) US EXTREMITY VENOUS BI EXAM: US EXTREMITY VENOUS BI CLINICAL HISTORY: R/O b/l DVTs R60.0 EDEMA LOWER EXTREMITY TECHNIQUE: Grayscale, color, and doppler imaging of the deep venous system of both lower extremities was performed. COMPARISON: No exams were available for comparison FINDINGS: There is no evidence of intraluminal thrombus and there is normal compression and augmentation demons trated within the common femoral veins, femoral veins, and popliteal veins of both lower extremities. In the calves the interrogated veins also exhibit normal compression/ augmentation properties. The greater saphenous veins also appear patent as do the saphenofemoral junctions bilaterally.. IMPRESSION: 1. No ultrasound evidence of DVT in either lower extremity. DATA REPOSITORY:
== END ==
PROVIDERS: PCP Student in an Organized Health Care Education/Training Program; Visit Provider Family Medicine
DX: R60.0 Localized edema (principal)
CPT/HCPCS: 93970

== ENCOUNTER 2023-10-07 03:01 | Outpatient (CLI) | payer MEDICARE, SELFPAY ==
[2023-10-07 12:43] LABS: Abs Immature Grans 0.03 10^3/uL (0.0-0.06); Absolute Basophil Count 0.03 10^3/uL (0.0-0.2); Absolute Eosinophil Count 0.07 10^3/uL (0.0-0.7); Absolute Lymphocyte Count 1.55 10^3/uL (1.2-3.4); Absolute Monocyte Count 0.75 10^3/uL (0.1-0.8); Absolute Neutrophil Count 3.85 10^3/uL (1.2-6.7); Basophils % 0.5 %; Eosinophils % 1.1 %; HCT 38.3 % (40.0-50.0); HGB 12.8 g/dL (13.5-17.5); Immature Grans % 0.5 %; Lymphocytes % 24.7 %; MCH 33.2 pg (27.0-33.0); MCHC 33.4 % (32.0-36.0); MCV 99 fL (80-95); MPV 9.2 fL (8.0-11.0); Monocytes % 11.9 %; Neutrophils % 61.3 %; Platelet Count 260 10^3/uL (130-400); RBC 3.86 10^6/uL (4.36-5.78); RDW 13.2 % (11.8-14.1); RDW-SD 47.5 fL; WBC 6.28 10^3/uL (4.4-10.8)
[2023-10-07 13:07] LABS: ALT 30 U/L (16-63); AST 33 U/L (15-37); Albumin 3.3 g/dL (3.4-5.0); Alkaline Phosphatase 98 U/L (46-116); Anion Gap 6.2 mmol/L (3-11); BUN 16 mg/dL (7-18); Bilirubin, Total 0.36 mg/dL (0.2-1.0); CO2 34.8 mmol/L (21.0-32.0); CREATININE 1.1 mg/dL (0.70-1.30); Calcium 8.6 mg/dL (8.5-10.1); Chloride 98 mmol/L (98-107); Estimated GFR 67.44 (mL/min/1.73m2); FREE T4 1.11 ng/dL (0.76-1.46); Glucose 204 mg/dL (74-106); Lipase 36 U/L (16-77); Magnesium 1.8 mg/dL (1.8-2.4); Potassium 3.1 mmol/L (3.5-5.1); Sodium 139 mmol/L (136-145); TSH 2.18 uIU/Ml (0.36-3.74)
== END 2023-10-07 03:02 | disposition home or self-care (01) ==
LOC: LBO 03:01
PROVIDERS: PCP Student in an Organized Health Care Education/Training Program; Visit Provider Internal Medicine Medical Oncology
DX: Z79.899 Other long term (current) drug therapy (principal); C79.31 Secondary malignant neoplasm of brain; C34.31 Malignant neoplasm of lower lobe, right bronchus or lung
CPT/HCPCS: 36415; 80053; 83690; 83735; 84439; 84443; 85025

== ENCOUNTER 2023-10-10 09:51 | Emergency (ER) | payer MEDICARE, SELFPAY ==
[2023-10-10 10:00] VITALS: BP 139/73; PULSE 62; RESP 16; TEMP 36.6; O2SAT 98
[2023-10-10 10:43] LABS: Bilirubin Negative (Negative); Blood Negative (Negative); Clarity Clear (Clear); Glucose Negative (Negative); Ketones Negative (Negative); Leukocyte Esterase Small (Negative); Nitrite Negative (Negative); Specific Gravity 1.015 (1.005-1.025); Urobilinogen 0.2 mg/dL (Up to 0.2); pH 7.5 (5-8)
[2023-10-10 10:53] LABS: Bacteria Rare HPF (Negative); C & S Indicated? No; Casts Negative LPF (Negative); Crystals Negative HPF (Negative); Epithelial Cells Rare HPF (Negative); Mucus Negative (Negative); RBC 0-2 HPF (0-2)
[2023-10-10 11:11] VITALS: BP 139/73; PULSE 62; RESP 16; TEMP 36.6; O2SAT 98
[2023-10-10 11:22] LABS: Abs Immature Grans 0.04 10^3/uL (0.0-0.06); Absolute Basophil Count 0.04 10^3/uL (0.0-0.2); Absolute Eosinophil Count 0.03 10^3/uL (0.0-0.7); Absolute Lymphocyte Count 1.54 10^3/uL (1.2-3.4); Absolute Monocyte Count 0.44 10^3/uL (0.1-0.8); Absolute Neutrophil Count 5.21 10^3/uL (1.2-6.7); Basophils % 0.5 %; Eosinophils % 0.4 %; HCT 36.4 % (40.0-50.0); HGB 12.2 g/dL (13.5-17.5); Immature Grans % 0.5 %; Lymphocytes % 21.1 %; MCH 32.7 pg (27.0-33.0); MCHC 33.5 % (32.0-36.0); MCV 98 fL (80-95); MPV 9.7 fL (8.0-11.0); Neutrophils % 71.5 %; Platelet Count 267 10^3/uL (130-400); RBC 3.73 10^6/uL (4.36-5.78); RDW 12.9 % (11.8-14.1); RDW-SD 46.1 fL
[2023-10-10 11:39] LABS: ALT 36 U/L (16-63); AST 48 U/L (15-37); Albumin 3.4 g/dL (3.4-5.0); Alkaline Phosphatase 96 U/L (46-116); Anion Gap 5.6 mmol/L (3-11); BUN 17 mg/dL (7-18); Bilirubin, Total 0.81 mg/dL (0.2-1.0); CO2 34.4 mmol/L (21.0-32.0); CREATININE 0.9 mg/dL (0.70-1.30); Calcium 9.3 mg/dL (8.5-10.1); Chloride 98 mmol/L (98-107); Glucose 116 mg/dL (74-106); Potassium 3.7 mmol/L (3.5-5.1); Sodium 138 mmol/L (136-145); Total Protein 7.2 g/dL (6.4-8.2)
[2023-10-10 11:52] VITALS: BP 139/72; PULSE 54; RESP 18; TEMP 37.1; O2SAT 98
[2023-10-10 11:55] LABS: Lactate 0.9 mmol/L (0.9-1.7)
--- NOTE | 2023-10-10 12:51 | DI.RAD_ITS ---
Exam(s) XR CHEST 2V PA LATERAL EXAM: XR CHEST 2V PA LATERAL CLINICAL HISTORY: fever TECHNIQUE: 2D digital imaging was performed of the chest. Two images were obtained. PA and lateral views were obtained. COMPARISON: CR XR CHEST 2V PA LATERAL from 09/27/2022 CT IR BIOPSY from 10/30/[address] CHEST/ABD/PEL W from 01/29/[address] CHEST/ABD/PEL W from 07/01/2023 FINDINGS: MEDIASTINUM: Normal. HEART: Normal. PULMONARY VASCULATURE: Normal. LUNGS: The mass in the right lower lobe is again seen measures approximately 4.5 cm. Visually it jordon ears similar in size to the CT scan from 07/01/2023. There again seen mild peripheral interstitial fib rotic changes in the left upper lobe laterally. No focal consolidating infiltrates are seen. PLEURAL SPACE: No pleural effusion or pneumothorax. BONE:Within normal limits for the patient's age. OTHER FINDINGS:Normal. IMPRESSION: 1. No acute pulmonary findings. 2. Stable appearance of the right lower lobe pulmonary mass consistent with the patient's known diagn osis of lung carcinoma. 3. Stable peripheral interstitial fibrosis particularly noted in the left upper lobe laterally. DATA REPOSITORY: RADIATION DOSE DELIVERED:
[2023-10-10 13:11] VITALS: BP 135/62; PULSE 62; RESP 16; TEMP 36.6; O2SAT 96
[2023-10-10 14:25] LABS: COVID-19 PCR Negative (Negative); Influenza A PCR Negative (Negative); Influenza B PCR Negative (Negative); RSV PCR Negative (Negative)
--- NOTE | 2023-10-10 14:25 | W.ED.GENAD ---
Discharge Plan Disposition Patient Disposition: Home Condition: Stable Discharge Details Clinical Impression: Cellulitis of left leg, Fever Primary Care Provider: Aissatou Hull ED Provider: Jose Boland Home Meds and New Rx's Prescriptions: New doxycycline hyclate 100 mg tablet 100 mg PO BID Qty: 27 0RF Continued latanoprost 0.005 % drops 1 drp OP QPM magnesium 500 mg PO DAILY ferrous sulfate [Feosol] 325 mg (65 mg iron) tablet 325 mg PO Q OTHER DAY Rx Instructions: Takes , , Sat rye grass extract-quercetin 500-250 mg tablet See Rx Instructions PO BID Rx Instructions: 1,000mg BID, Graminex - takes OTC for prostate health (does not contain quercitin) PO twice a day famotidine 40 mg tablet 40 mg PO DAILY Rx Instructions: Trial for occasional acid reflux insulin degludec [Tresiba FlexTouch U-200] 200 unit/mL (3 mL) insulin pen 12 unit subcut DAILY Rx Instructions: Inject subcutaneously, 50 units daily. Titrate as directed. (DME) Solostar Pen NEEDLES See Rx Instructions .Route .MEDSUPPLY Qty: 100 3RF Rx Instructions: For insulin administration (DME) pen needle, diabetic [BD Ultra-Fine Mini Pen Needle] 31 gauge x 3/16 needle See Rx Instructions .Route Qty: 100 12RF Rx Instructions: As directed (DME) pen needle, diabetic [Comfort EZ Pen [place]] 31 gauge x 3/16 needle See Rx Instructions .Route Qty: 100 12RF Rx Instructions: Inject 3x daily as directed vitamin B complex-folic acid 400 mcg tablet extended release PO Patient Comments: Twice per week, 1 tablet Saturday and Saturday after supper. Per Pt from [facility] alpha lipoic acid 600 mg capsule 600 mg PO BID Patient Comments: for peripheral neuropathy guaifenesin [Mucus Relief ER] 1,200 mg tablet extended release 12hr 1,200 mg PO BID Complete MV Adult 50 Plus 0.4 mg-300 mcg- 250 mcg tablet 1 tab PO DAILY insulin aspart U-100 [Novolog FlexPen U-100 Insulin] 100 unit/mL (3 mL) insulin pen 15 unit subcut TID PRN Rx Instructions: Inject 15 units before meals or as directed by clinical pharmacist ascorbic acid (vitamin C) [Vitamin C] 500 MG tablet 500 mg PO DAILY omega-3 fatty acids-fish oil 1 EACH capsule 1 ea PO DAILY Rx Instructions: per Dr Aguero for eyelids metronidazole 0.75 % gel 1 applic Topical DAILY PRN Rx Instructions: Dr Fredrick weinstein ([facility] [place]) blood-glucose meter [FreeStyle Lite Meter] Kit See Rx Instructions .Route Rx Instructions: Check blood sugar every day before breakfast (DME) FreeStyle Lite Strips Strip See Rx Instructions .Route Rx Instructions: Check Blood sugars daily before breakfast (DME) lancets [Lancets,Thin] Misc See Rx Instructions .Route Rx Instructions: Check Blood sugar daily before breakfast hydrochlorothiazide 12.5 mg tablet 12.5 mg PO DAILY Qty: 90 3RF Rx Instructions: TO CONTROL BP <140/85 (DME) KETO K 1,000 See Rx Instructions .Route .MEDSUPPLY Qty: 1 0RF Rx Instructions: Electrolyte support per KG (DME) Premier Protein See Rx Instructions .Route .MEDSUPPLY Qty: 1 0RF Rx Instructions: Protein Supplement per KG pembrolizumab See Rx Instructions IV MONTHLY Rx Instructions: intravenously monthly; Every 21 days, 4-6 cycles pemetrexed IV MONTHLY Rx Instructions: Every 21 days, 4-6 cycles vitamin [id number] B1 1,000-100 mg/mL solution IM Rx Instructions: Given every 3 cycles of infusions-- folic acid 400 mcg tablet 0.4 mg PO DAILY Rx Instructions: 400-1000mcg/day--available in either multivitamin or by prescription-- prochlorperazine maleate [Compazine] 10 mg tablet 10 mg PO Q6H PRN Rx Instructions: Q6H for nausea furosemide 80 mg tablet 120 mg PO DAILY Hold Instructions: Changed by Provider Rx Instructions: 08/05/23 Try daily, then may go to PRN metformin 500 mg tablet See Rx Instructions PO DAILY Qty: 165 3RF Rx Instructions: 250 mg am and 500 mg pm, may take an addional 250mg in am for heavy carb breakfast prn. Discharge Instructions Instructions: Cellulitis (Skin Infection), Adult ED Additional Instructions: Please follow-up with your oncologist and primary care physician. Call your primary care physician tomorrow to schedule timely follow-up. Please take antibiotic doxycycline as prescribed. Be sure to complete the full course. Blood cultures and urine cultures are pending at time of discharge. Should there be significant findings, you will be contacted. Return to the ER immediately for any worsening or new concerning symptoms. Referrals: Aissatou Hull DO [Primary Care Provider] - HPI General Mode of arrival: ambulatory. Date/Time Provider Initiated Documentation: 10/10/23 10:10. Limitations to Documentation: no limitations. Information obtained by: patient. 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 Patient notes that he had brain radiation therapy yesterday. He developed fever last night. Fever was as high as 103.6. He took Tylenol and fever improved. This AM he was noted to again have fever of 101 and took Tylenol. Patient notes dome increased urianry frequency last night. Patient denies dysuria, cough, chest pain, abdominal pain. He has mild HERBERT and denies neck pain or stiffness. Patient did just finished antibiotic erysipelas of his LLE. Rash has improved. Related Data Home Medications Medication Instructions Recorded Confirmed ascorbic acid (vitamin C) 500 mg 500 mg PO DAILY 08/01/12 10/10/23 tablet (Vitamin C) omega-3 fatty acids-fish oil 300 1 ea PO DAILY 08/01/12 10/10/23 mg-1,000 mg capsule latanoprost 0.005 % eye drops 1 drp ophthalmic (eye) QPM 09/18/18 10/10/23 metronidazole 0.75 % topical gel 1 applic topical DAILY PRN 05/18/19 10/10/23 magnesium 500 mg PO DAILY 01/03/21 10/10/23 rye grass extract 500 mg-quercetin See Rx Instructions PO BID 06/15/21 10/10/23 250 mg tablet alpha lipoic acid 600 mg capsule 600 mg PO BID 03/29/22 10/10/23 guaifenesin 1,200 mg tablet, 1,200 mg PO BID 10/11/22 10/10/23 extended release 12 hr (Mucus Relief ER) blood sugar diagnostic (FreeStyle 11/09/22 10/08/23 Lite Strips) blood-glucose meter (FreeStyle 11/09/22 10/08/23 Lite Meter kit) lancets (Lancets,Thin) 11/09/22 10/08/23 Solostar Pen NEEDLES #100 ea 11/13/22 10/08/23 pen needle, diabetic 31 gauge x #100 ea 11/23/22 10/08/2306/28 (BD Ultra-Fine Mini Pen Needle) hydrochlorothiazide 12.5 mg tablet 12.5 mg PO DAILY #90 tab-caps 12/22/22 10/10/23 KETO K 1,000 #1 ea 01/23/23 10/10/23 Premier Protein #1 ea 01/23/23 10/08/23 pen needle, diabetic 31 gauge x #100 ea 01/28/23 10/08/2306/28 (Comfort EZ Pen [place]) ferrous sulfate 325 mg (65 mg 325 mg PO Q OTHER DAY 03/14/23 10/10/23 iron) tablet (Feosol) vitamin B complex-folic acid ER tab PO 05/10/23 10/08/23 400 mcg tablet,extended release folic acid 400 mcg tablet 0.4 mg PO DAILY 05/28/23 10/10/23 pembrolizumab See Rx Instructions IV MONTHLY 05/28/23 10/10/23 pemetrexed IV MONTHLY 05/28/23 10/08/23 prochlorperazine maleate 10 mg 10 mg PO Q6H PRN 05/28/23 10/10/23 tablet (Compazine) vitamin X32-vovoydh B1 1,000 ml IM 05/28/23 10/08/23 mcg-100 mg/mL injection solution famotidine 40 mg tablet 40 mg PO DAILY acid reflux 07/16/23 10/10/23 insulin degludec 200 unit/mL (3 12 unit subcut DAILY 08/06/23 10/10/23 mL) subcutaneous pen (Tresiba FlexTouch U-200 insulin) furosemide 80 mg tablet 120 mg PO DAILY 08/08/23 10/10/23 lfxrlblc-ekd-ywwkz acid 0.4 1 tab PO DAILY 09/03/23 10/10/23 mg-lycopene 300 mcg-lutein 250 mcg tablet (Complete Multivitamin Adult 50 Plus) insulin aspart U-100 100 unit/mL 15 unit subcut TID PRN 09/25/23 10/10/23 (3 mL) subcutaneous pen (Novolog FlexPen U-100 Insulin aspart) metformin 500 mg tablet See Rx Instructions PO DAILY #165 10/09/23 10/10/23 tabs doxycycline hyclate 100 mg tablet 100 mg PO BID #27 tabs 10/10/23 Previous Rx's Medication Instructions Recorded Solostar Pen NEEDLES #100 ea 11/13/22 pen needle, diabetic 31 gauge x #100 ea 11/23/2206/28 (BD Ultra-Fine Mini Pen Needle) hydrochlorothiazide 12.5 mg tablet 12.5 mg PO DAILY #90 tab-caps 12/22/22 KETO K 1,000 #1 ea 01/23/23 Premier Protein #1 ea 01/23/23 pen needle, diabetic 31 gauge x #100 ea 01/28/2306/28 (Comfort EZ Pen [place]) metformin 500 mg tablet See Rx Instructions PO DAILY #165 10/09/23 tabs doxycycline hyclate 100 mg tablet 100 mg PO BID #27 tabs 10/10/23 Allergies Allergy/AdvReac Type Severity Reaction Status Date / Time No Known Allergies Allergy Verified 10/10/23 12:09 General Stated Complaint: Fever CORIN: 3 Review of Systems All systems reviewed & are unremarkable except as noted in HPI and below Constitutional Constitutional: Reports as per HPI and Reports fever(s) Respiratory Respiratory: Denies cough Gastrointestinal Gastrointestinal: Denies abdominal pain Exam Const General: cooperative and no acute distress HENMT Mouth: moist mucous membranes Eyes Conjunctivae: normal conjunctivae Sclera: normal sclerae Neck Neck: trachea midline and supple Resp Auscultation: clear to auscultation bilaterally, no rales, no rhonchi and no wheezes Cardio Rate: regular rate and not tachycardic Rhythm: regular rhythm GI Palpation: soft, not firm, no guarding, no masses, not rigid and nontender Skin Rashes: rashes noted (mild faint erythema left lower leg) Neuro General: patient alert, patient awake, patient oriented x3 and tone normal Extrem General: edema Laterality: bilateral (trace) Psych Appearance: grossly normal Mental Status: mental status grossly normal Course Vital Signs Vital signs: Vital Signs Temperature 36.6 C 10/10/23 10:00 Pulse 62 10/10/23 10:00 Respiratory Rate 16 10/10/23 10:00 Blood Pressure 139/73 10/10/23 10:00 Pulse Oximetry 98 10/10/23 10:00 Temperature 36.6 C 10/10/23 13:11 Temperature Source Skin 10/10/23 13:11 Pulse 62 10/10/23 13:11 Respiratory Rate 16 10/10/23 13:11 Respiratory Effort Normal 10/10/23 11:09 Blood Pressure 135/62 10/10/23 13:11 Blood Pressure Mean 86 10/10/23 13:11 Blood Pressure Position Sitting 10/10/23 13:11 Pulse Oximetry 96 10/10/23 13:11 Oxygen Delivery Method Room Air 10/10/23 13:11 Oxygen Flow Rate 0 10/10/23 13:11 Pain Level 0 10/10/23 13:11 Lab/Test Results Lab/Test Results: 10/10/23 10:18 Urine - Bladder Aspirate Urine Culture - Pending 10/10/23 11:40 Blood Blood Culture - Pending 10/10/23 10:43 Blood Blood Culture - Pending Laboratory Tests Range/Units 10/10/23 10/10/23 10/10/23 10:18 10:43 11:40 WBC (4.4-10.8) 10^3/uL 7.30 RBC (4.36-5.78) 10^6/uL 3.73 L Hgb (13.5-17.5) g/dL 12.2 L Hct (40.0-50.0) % 36.4 L MCV (80-95) fL 98 H MCH (27.0-33.0) pg 32.7 MCHC (32.0-36.0) % 33.5 RDW (11.8-14.1) % 12.9 Plt Count (130-400) 10^3/uL 267 MPV (8.0-11.0) fL 9.7 Immature Gran % % 0.5 Neutrophils % % 71.5 Lymphocytes % % 21.1 Monocytes % % 6.0 Eosinophils % % 0.4 Basophils % % 0.5 Nucleated RBC % (0.0-0.3) % 0.0 Absolute Neutrophils (1.2-6.7) 10^3/uL 5.21 Absolute Lymphocytes (1.2-3.4) 10^3/uL 1.54 Absolute Monocytes (0.1-0.8) 10^3/uL 0.44 Absolute Eosinophils (0.0-0.7) 10^3/uL 0.03 Absolute Basophils (0.0-0.2) 10^3/uL 0.04 VBG Lactate (0.9-1.7) mmol/L 0.9 Sodium (136-145) mmol/L 138 Potassium (3.5-5.1) mmol/L 3.7 Chloride (98-107) mmol/L 98 Carbon Dioxide (21.0-32.0) mmol/L 34.4 H Anion Gap (3-11) mmol/L 5.6 BUN (7-18) mg/dL 17 Creatinine (0.70-1.30) mg/dL 0.9 Est GFR (CKD-EPI 2020) (mL/min/1.73m2) 85.80 Glucose (74-106) mg/dL 116 H Calcium (8.5-10.1) mg/dL 9.3 Total Bilirubin (0.2-1.0) mg/dL 0.81 AST (15-37) U/L 48 H ALT (16-63) U/L 36 Alkaline Phosphatase (46-116) U/L 96 Total Protein (6.4-8.2) g/dL 7.2 Albumin (3.4-5.0) g/dL 3.4 Urine Color (Yellow) Yellow Urine Clarity (Clear) Clear Urine pH (5-8) 7.5 Ur Specific [place] (1.005-1.025) 1.015 Urine Protein (Neg-Trace) mg/dL Negative Urine Ketones (Negative) mg/dL Negative Urine Blood (Negative) Negative Urine Nitrite (Negative) Negative Urine Bilirubin (Negative) Negative Urine Urobilinogen (Up to 0.2) mg/dL 0.2 Ur Leukocyte Esterase (Negative) Small H Urine RBC (0-2) HPF 0-2 Urine WBC (0-5) HPF 3-5 Ur Epithelial Cells (Negative) HPF Rare Urine Crystals (Negative) HPF Negative Urine Bacteria (Negative) HPF Rare Urine Casts (Negative) LPF Negative Urine Mucus (Negative) Negative Ur Culture Indicated? No Urine Glucose (Negative) mg/dL Negative COVID-19 Source SARS-CoV-2 (PCR) Range/Units 10/10/23 13:21 WBC (4.4-10.8) 10^3/uL RBC (4.36-5.78) 10^6/uL Hgb (13.5-17.5) g/dL Hct (40.0-50.0) % MCV (80-95) fL MCH (27.0-33.0) pg MCHC (32.0-36.0) % RDW (11.8-14.1) % Plt Count (130-400) 10^3/uL MPV (8.0-11.0) fL Immature Gran % % Neutrophils % % Lymphocytes % % Monocytes % % Eosinophils % % Basophils % % Nucleated RBC % (0.0-0.3) % Absolute Neutrophils (1.2-6.7) 10^3/uL Absolute Lymphocytes (1.2-3.4) 10^3/uL Absolute Monocytes (0.1-0.8) 10^3/uL Absolute Eosinophils (0.0-0.7) 10^3/uL Absolute Basophils (0.0-0.2) 10^3/uL VBG Lactate (0.9-1.7) mmol/L Sodium (136-145) mmol/L Potassium (3.5-5.1) mmol/L Chloride (98-107) mmol/L Carbon Dioxide (21.0-32.0) mmol/L Anion Gap (3-11) mmol/L BUN (7-18) mg/dL Creatinine (0.70-1.30) mg/dL Est GFR (CKD-EPI 2020) (mL/min/1.73m2) Glucose (74-106) mg/dL Calcium (8.5-10.1) mg/dL Total Bilirubin (0.2-1.0) mg/dL AST (15-37) U/L ALT (16-63) U/L Alkaline Phosphatase (46-116) U/L Total Protein (6.4-8.2) g/dL Albumin (3.4-5.0) g/dL Urine Color (Yellow) Urine Clarity (Clear) Urine pH (5-8) Ur Specific [place] (1.005-1.025) Urine Protein (Neg-Trace) mg/dL Urine Ketones (Negative) mg/dL Urine Blood (Negative) Urine Nitrite (Negative) Urine Bilirubin (Negative) Urine Urobilinogen (Up to 0.2) mg/dL Ur Leukocyte Esterase (Negative) Urine RBC (0-2) HPF Urine WBC (0-5) HPF Ur Epithelial Cells (Negative) HPF Urine Crystals (Negative) HPF Urine Bacteria (Negative) HPF Urine Casts (Negative) LPF Urine Mucus (Negative) Ur Culture Indicated? Urine Glucose (Negative) mg/dL COVID-19 Source Cancelled SARS-CoV-2 (PCR) Cancelled Medical Decision Making 1435 -- 83yo male with history of non small cell lung cancer with mets to liver and brain, 1 day s/p brain radiation, here with fever that started last night. Patient is immunocompromised on chemotherapy. Patient is now afebrile. Hemodynamically stable. Patient has mild HERBERT. No meningismus. Patient does have mild erythema distal right lower extremity. Consider persistent cellulitis. Considered neutropenic fever. Considered UTI vs less likely PNA vs COVID. Consider bacteremia. Labs reviewed and no leukocytosis or leukopenia. Urinalysis is not consistent with UTI. He does have 3-5 WBCs with rare bacteria and rare epithelial cells noted. I will send urine culture. Blood culture also pending. I spoke with the patient's oncologist, Dr. Méndez, discussed ED presentation and course, he agrees with workup and does recommend checking COVID testing. Chest x-ray was reviewed and interpreted by radiology: 1. No acute pulmonary findings. 2. Stable appearance of the right lower lobe pulmonary mass consistent with the patient's known diagnosis of lung carcinoma. 3. Stable peripheral interstitial fibrosis particularly noted in the left upper lobe laterally. Plan to continue antibiotic for treatment of potential left lower extremity cellulitis. Patient was initially on Bactrim which did help but then erythema returned and he was treated with a course of Augmentin. He notes he developed diarrhea with the Augmentin. I called and spoke with the patient's primary care physician, Dr. Conteh health, we decided to switch antibiotic to doxycycline and I will prescribe a prolonged course given immunosuppression. Dr. Conteh will arrange for timely follow-up. Lab Data Lab results reviewed: Yes I reviewed the patient's lab results. Labs: 10/10/23 10:18 Urine - Bladder Aspirate Urine Culture - Pending 10/10/23 11:40 Blood Blood Culture - Pending 10/10/23 10:43 Blood Blood Culture - Pending Laboratory Tests Range/Units 10/10/23 10/10/23 10/10/23 10:18 10:43 11:40 WBC (4.4-10.8) 10^3/uL 7.30 RBC (4.36-5.78) 10^6/uL 3.73 L Hgb (13.5-17.5) g/dL 12.2 L Hct (40.0-50.0) % 36.4 L MCV (80-95) fL 98 H MCH (27.0-33.0) pg 32.7 MCHC (32.0-36.0) % 33.5 RDW (11.8-14.1) % 12.9 Plt Count (130-400) 10^3/uL 267 MPV (8.0-11.0) fL 9.7 Immature Gran % % 0.5 Neutrophils % % 71.5 Lymphocytes % % 21.1 Monocytes % % 6.0 Eosinophils % % 0.4 Basophils % % 0.5 Nucleated RBC % (0.0-0.3) % 0.0 Absolute Neutrophils (1.2-6.7) 10^3/uL 5.21 Absolute Lymphocytes (1.2-3.4) 10^3/uL 1.54 Absolute Monocytes (0.1-0.8) 10^3/uL 0.44 Absolute Eosinophils (0.0-0.7) 10^3/uL 0.03 Absolute Basophils (0.0-0.2) 10^3/uL 0.04 VBG Lactate (0.9-1.7) mmol/L 0.9 Sodium (136-145) mmol/L 138 Potassium (3.5-5.1) mmol/L 3.7 Chloride (98-107) mmol/L 98 Carbon Dioxide (21.0-32.0) mmol/L 34.4 H Anion Gap (3-11) mmol/L 5.6 BUN (7-18) mg/dL 17 Creatinine (0.70-1.30) mg/dL 0.9 Est GFR (CKD-EPI 2020) (mL/min/1.73m2) 85.80 Glucose (74-106) mg/dL 116 H Calcium (8.5-10.1) mg/dL 9.3 Total Bilirubin (0.2-1.0) mg/dL 0.81 AST (15-37) U/L 48 H ALT (16-63) U/L 36 Alkaline Phosphatase (46-116) U/L 96 Total Protein (6.4-8.2) g/dL 7.2 Albumin (3.4-5.0) g/dL 3.4 Urine Color (Yellow) Yellow Urine Clarity (Clear) Clear Urine pH (5-8) 7.5 Ur Specific [place] (1.005-1.025) 1.015 Urine Protein (Neg-Trace) mg/dL Negative Urine Ketones (Negative) mg/dL Negative Urine Blood (Negative) Negative Urine Nitrite (Negative) Negative Urine Bilirubin (Negative) Negative Urine Urobilinogen (Up to 0.2) mg/dL 0.2 Ur Leukocyte Esterase (Negative) Small H Urine RBC (0-2) HPF 0-2 Urine WBC (0-5) HPF 3-5 Ur Epithelial Cells (Negative) HPF Rare Urine Crystals (Negative) HPF Negative Urine Bacteria (Negative) HPF Rare Urine Casts (Negative) LPF Negative Urine Mucus (Negative) Negative Ur Culture Indicated? No Urine Glucose (Negative) mg/dL Negative COVID-19 Source SARS-CoV-2 (PCR) Influenza Type A (PCR) (Negative) Influenza Type B (PCR) (Negative) RSV (PCR) (Negative) Range/Units 10/10/23 10/10/23 10/10/23 13:21 13:21 13:21 WBC (4.4-10.8) 10^3/uL RBC (4.36-5.78) 10^6/uL Hgb (13.5-17.5) g/dL Hct (40.0-50.0) % MCV (80-95) fL MCH (27.0-33.0) pg MCHC (32.0-36.0) % RDW (11.8-14.1) % Plt Count (130-400) 10^3/uL MPV (8.0-11.0) fL Immature Gran % % Neutrophils % % Lymphocytes % % Monocytes % % Eosinophils % % Basophils % % Nucleated RBC % (0.0-0.3) % Absolute Neutrophils (1.2-6.7) 10^3/uL Absolute Lymphocytes (1.2-3.4) 10^3/uL Absolute Monocytes (0.1-0.8) 10^3/uL Absolute Eosinophils (0.0-0.7) 10^3/uL Absolute Basophils (0.0-0.2) 10^3/uL VBG Lactate (0.9-1.7) mmol/L Sodium (136-145) mmol/L Potassium (3.5-5.1) mmol/L Chloride (98-107) mmol/L Carbon Dioxide (21.0-32.0) mmol/L Anion Gap (3-11) mmol/L BUN (7-18) mg/dL Creatinine (0.70-1.30) mg/dL Est GFR (CKD-EPI 2020) (mL/min/1.73m2) Glucose (74-106) mg/dL Calcium (8.5-10.1) mg/dL Total Bilirubin (0.2-1.0) mg/dL AST (15-37) U/L ALT (16-63) U/L Alkaline Phosphatase (46-116) U/L Total Protein (6.4-8.2) g/dL Albumin (3.4-5.0) g/dL Urine Color (Yellow) Urine Clarity (Clear) Urine pH (5-8) Ur Specific [place] (1.005-1.025) Urine Protein (Neg-Trace) mg/dL Urine Ketones (Negative) mg/dL Urine Blood (Negative) Urine Nitrite (Negative) Urine Bilirubin (Negative) Urine Urobilinogen (Up to 0.2) mg/dL Ur Leukocyte Esterase (Negative) Urine RBC (0-2) HPF Urine WBC (0-5) HPF Ur Epithelial Cells (Negative) HPF Urine Crystals (Negative) HPF Urine Bacteria (Negative) HPF Urine Casts (Negative) LPF Urine Mucus (Negative) Ur Culture Indicated? Urine Glucose (Negative) mg/dL COVID-19 Source Cancelled Nasopharynx SARS-CoV-2 (PCR) Cancelled Negative Influenza Type A (PCR) (Negative) Negative Influenza Type B (PCR) (Negative) Negative RSV (PCR) (Negative) Negative Quality:SDOH Health Related Social Needs: No Data to Display PFSH All Active Problems (Updated 10/10/23 @ 14:46 by Jose Boland MD) Fever (Acute) Cellulitis of left leg (Acute) Secondary malignant neoplasm of brain (Acute ~09/18/23) added to PL from [facility] 09/18/23 note.HE Lower extremity edema (Acute) Swelling of lower extremity (Acute) Mastoiditis of left side (Acute) per MRI Brain (August 2023) Edema of left lower extremity (Acute) Erysipelas of left lower extremity (Acute) not improving, day 3 of Cefadroxil Non-smoker (Chronic) life long non smoker Cancer, metastatic to liver (Acute) Goals of care, counseling/discussion (Acute) Palliative care patient (Acute) Sadness (Acute) Anticipatory grieving (Acute) Tinea pedis (Acute) Coordination of complex care (Acute) [facility] Hem/Onc. [facility] Hem/Onc (Consult x1). Noninfected skin tear of left lower extremity (Acute) not healing, but not worsening .. no worse with bandaid use, but edema (L>>R) presumed slowing healing Diabetes mellitus type 2 in nonobese (Acute 02/12/12) ? 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 Twice now, once @ walk, another @ home... No SOB, CP. Elevated PSA (Acute) Sessile colonic polyp (Acute) Hx of iron deficiency anemia (Chronic) Presumed 2' Fe. Considering Fe infusion, 09/2020. Trochanteric bursitis of right hip (Acute) Throat irritation (Acute) New irrit may be thrush (2' Trelegy?).. Original thought to be wood-stove, but lung ca! (10/2022) Nail dystrophy (Acute) Corns and callosities (Acute) Chronic mucus hypersecretion, respiratory (Acute) Lung Ca! (10/2022)..thought to be 2' dryness, winter stove use Liver lesion (Acute) CT (01/2023) shows: Subcapsular lesion .. in RT hepatic lobe ..difficult to delineate ..not a simple cyst..represents metastatic disease or possible hemangioma.. From MRI: possible met from lung lesion? Non-small cell carcinoma of lung, right (Acute) aspiration 10/30/22 non small cell carcinoma, favor adenocarcinoma with pleomorphic features 01/07/23 [facility] Hem/Onc andF/U MRI in Oct. 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 Decadron for brain swelling; Increased ~ 11/06 in preparation for radiation Tx (brain mets from [facility]) Hyperglycemia Insulin while in the hospital with recommendation to start low-dose insulin due to high level of steroid use History of basal cell carcinoma 05/23/21 [facility] LIT DERM note Hyperlipidemia associated with type 2 diabetes mellitus (03/08/15) CV risk >40% Right lower lobe lung mass Newly ID on CXR, 09/27/22. Possible etiology for subacute cough/phlegm w/o resolution post dequwb-mqpvz-nxc. aspirated 10/30/22 Persistent cough Symptom which finally ID lung cancer! more of a clearing of the throat Laceration of ngo Machete cut last week (02/23) .. slow healing, poor approximation .. possible debridement and re-approximation by surgery? 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 (tendinitis vs tear per 06/2021 mri).. History of growth or development disorder OF RIGHT HIP (growth plate of femur?) Hip pain Acute RT hip area pain, with Hx RT Fx (2' growth plate path) & LFT Femur Shortening Surgery.. Tick bite of abdominal wall Tick partially removed .. no rash. 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 DR PEREZ metronidazole gel Family history of colon cancer (06/22/16) Q3yr s/p 2020 polyps. (q 5yr colonoscopy: neg 2012) Disorder of back (05/31/11) congenital spondylolisthesis L5; intermittent pain if lifting, bending. 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 Perez , was on pt back Turbinoplasty, Inferior (Bilateral) (08/11/09) [facility], Dr Reza Femor excision (04/15/73) 1974 shorten L leg 2' S/P femur fracture [of RT LEG] from skiing accident at 14 years of age Excision of sebaceous cyst (11/30/14) Dr. Stephanie Angela Family History Sister , age 96 Neoplasm lymphoma Brother Age: 84 Neoplasm Son No problems noted. Daughter No problems noted. 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 Pets and animals: Yes Pets and animals: cat(s) Do you think of yourself as: straight/heterosexual Current gender identity: male What is your relationship status?: How often do you talk on the phone with friends or family?: three or more times per week How often do you get together with friends or relatives?: twice per week Panel score (0-1 are the most socially isolated patients): 2 What type of physical activity do you participate in: walking Duration: 30-45 minutes/day Frequency: daily Yani/Tenriism: Temple Special yani needs: No Seatbelt use: always Drive intox or ride w/intox local hazmat driver: No Water heater temp set <120 deg: Yes Working smoke detector in home: Yes Fire extinguisher in home: Yes Carbon monox detector in home: Yes Do you feel safe at home: Yes Do you feel safe in your relationship?: Yes Additional Social history: Terrance and Jennifer about 25 years ago. Second marriage for both. Moved to home they designed and built when they retired. Both love the outdoors, avid bird and wildlife watchers. Usually go to [place] for part of winter to hike, be outdoors. Jennifer more socially isolated than Terrance. She is very private, not a lot of friends. Terrance born and raised locally, a lot of friends.
[2023-10-10 14:26] LABS: Source Nasopharynx
[2023-10-10 15:22] VITALS: BP 139/73; PULSE 62; RESP 16; TEMP 36.6; O2SAT 96
== END 2023-10-10 15:47 | disposition home or self-care (01) ==
PROVIDERS: Emergency Provider Student in an Organized Health Care Education/Training Program; PCP Student in an Organized Health Care Education/Training Program
DX: L03.116 Cellulitis of left lower limb (principal); R50.9 Fever, unspecified; R35.0 Frequency of micturition; C34.90 Malignant neoplasm of unspecified part of unspecified bronchus or lung; C78.7 Secondary malignant neoplasm of liver and intrahepatic bile duct; C79.31 Secondary malignant neoplasm of brain; Z79.899 Other long term (current) drug therapy; Z92.3 Personal history of irradiation; D84.821 Immunodeficiency due to drugs; E11.9 Type 2 diabetes mellitus without complications; I10 Essential (primary) hypertension; E78.5 Hyperlipidemia, unspecified; Z79.4 Long term (current) use of insulin; Z79.84 Long term (current) use of oral hypoglycemic drugs
CPT/HCPCS: 36415; 80053; 87040; 87635; 87637; 99284; 71046; 81003; 81015; 83605; 85025; 87086

== ENCOUNTER 2023-11-04 02:05 | Outpatient (CLI) | payer MEDICARE, SELFPAY ==
[2023-11-04 11:18] LABS: Abs Immature Grans 0.02 10^3/uL (0.0-0.06); Absolute Basophil Count 0.05 10^3/uL (0.0-0.2); Absolute Lymphocyte Count 2.09 10^3/uL (1.2-3.4); Absolute Monocyte Count 1.15 10^3/uL (0.1-0.8); Absolute Neutrophil Count 4.52 10^3/uL (1.2-6.7); Basophils % 0.6 %; Eosinophils % 1.3 %; HCT 35.7 % (40.0-50.0); Immature Grans % 0.3 %; Lymphocytes % 26.4 %; MCH 31.7 pg (27.0-33.0); MCHC 33.6 % (32.0-36.0); MCV 94 fL (80-95); MPV 9.5 fL (8.0-11.0); Monocytes % 14.5 %; Neutrophils % 56.9 %; Platelet Count 212 10^3/uL (130-400); RBC 3.78 10^6/uL (4.36-5.78); RDW 12.8 % (11.8-14.1); RDW-SD 43.8 fL; WBC 7.93 10^3/uL (4.4-10.8)
[2023-11-04 11:29] LABS: Hemoglobin A1C 6.3 % (<5.7)
[2023-11-04 11:49] LABS: ALT 24 U/L (16-63); AST 30 U/L (15-37); Albumin 3.3 g/dL (3.4-5.0); Alkaline Phosphatase 106 U/L (46-116); Anion Gap 5.4 mmol/L (3-11); BUN 13 mg/dL (7-18); Bilirubin, Total 0.61 mg/dL (0.2-1.0); CO2 34.6 mmol/L (21.0-32.0); CREATININE 0.9 mg/dL (0.70-1.30); Calcium 9.2 mg/dL (8.5-10.1); Chloride 98 mmol/L (98-107); FREE T4 3.27 ng/dL (0.76-1.46); Glucose 118 mg/dL (74-106); Lipase 36 U/L (16-77); Potassium 3.9 mmol/L (3.5-5.1); Sodium 138 mmol/L (136-145); TSH 0.01 uIU/Ml (0.36-3.74); Total Protein 7.3 g/dL (6.4-8.2)
== END 2023-11-04 02:06 | disposition home or self-care (01) ==
PROVIDERS: PCP Student in an Organized Health Care Education/Training Program; Visit Provider Internal Medicine Medical Oncology
DX: E11.9 Type 2 diabetes mellitus without complications (principal); C34.31 Malignant neoplasm of lower lobe, right bronchus or lung; C79.31 Secondary malignant neoplasm of brain; Z79.899 Other long term (current) drug therapy
CPT/HCPCS: 36415; 80053; 83690; 83036; 83735; 84439; 84443; 85025

== ENCOUNTER 2023-11-11 02:39 | Outpatient (CLI) | payer MEDICARE, SELFPAY ==
[2023-11-11 08:48] LABS: Abs Immature Grans 0.03 10^3/uL (0.0-0.06); Absolute Basophil Count 0.04 10^3/uL (0.0-0.2); Absolute Eosinophil Count 0.08 10^3/uL (0.0-0.7); Absolute Monocyte Count 0.87 10^3/uL (0.1-0.8); Absolute Neutrophil Count 5.14 10^3/uL (1.2-6.7); Basophils % 0.5 %; HCT 35.3 % (40.0-50.0); HGB 11.4 g/dL (13.5-17.5); Immature Grans % 0.4 %; Lymphocytes % 19.6 %; MCH 31.1 pg (27.0-33.0); MCHC 32.3 % (32.0-36.0); MCV 96 fL (80-95); MPV 9.5 fL (8.0-11.0); Monocytes % 11.4 %; Neutrophils % 67.1 %; Platelet Count 224 10^3/uL (130-400); RBC 3.67 10^6/uL (4.36-5.78); RDW 12.6 % (11.8-14.1); RDW-SD 44.8 fL; WBC 7.66 10^3/uL (4.4-10.8)
[2023-11-11 08:49] LABS: Bilirubin Negative (Negative); Blood Negative (Negative); Clarity Clear (Clear); Glucose Negative (Negative); Ketones Negative (Negative); Leukocyte Esterase Small (Negative); Nitrite Negative (Negative); Specific Gravity 1.015 (1.005-1.025); Urobilinogen 0.2 mg/dL (Up to 0.2); pH 8.5 (5-8)
[2023-11-11 09:08] LABS: ALT 27 U/L (16-63); AST 27 U/L (15-37); Alkaline Phosphatase 115 U/L (46-116); Anion Gap 5.2 mmol/L (3-11); BUN 12 mg/dL (7-18); Bilirubin, Total 0.58 mg/dL (0.2-1.0); CO2 32.8 mmol/L (21.0-32.0); CREATININE 0.9 mg/dL (0.70-1.30); Calcium 9.4 mg/dL (8.5-10.1); Calculated LDL 81 mg/dL (<100); Chloride 101 mmol/L (98-107); Cholesterol 147 mg/dL (<200); Glucose 169 mg/dL (74-106); HDL Cholesterol 48 mg/dL (40-60); Potassium 4.4 mmol/L (3.5-5.1); Sodium 139 mmol/L (136-145); Total Protein 7.1 g/dL (6.4-8.2); Triglyceride 91 mg/dL (<150)
[2023-11-11 09:13] LABS: Bacteria Rare HPF (Negative); C & S Indicated? No; Crystals Negative HPF (Negative); Epithelial Cells Rare HPF (Negative); Mucus Negative (Negative); RBC Negative HPF (0-2)
[2023-11-11 09:14] LABS: Lipase 34 U/L (16-77); TSH (W/Ref FT4) < 0.01 uIU/mL (0.36-3.74)
[2023-11-11 09:31] LABS: FREE T4 4.15 ng/dL (0.76-1.46)
== END 2023-11-11 02:40 | disposition home or self-care (01) ==
LOC: LBO 02:39
PROVIDERS: PCP Student in an Organized Health Care Education/Training Program; Visit Provider Internal Medicine Medical Oncology
DX: Z91.89 Other specified personal risk factors, not elsewhere classified; E11.9 Type 2 diabetes mellitus without complications; T45.1X5A Adverse effect of antineoplastic and immunosuppressive drugs, initial encounter; R77.0 Abnormality of albumin; K76.9 Liver disease, unspecified; Z79.899 Other long term (current) drug therapy; C34.31 Malignant neoplasm of lower lobe, right bronchus or lung; C79.31 Secondary malignant neoplasm of brain
CPT/HCPCS: 36415; 80053; 80061; 83690; 81003; 81015; 83735; 84439; 84443; 85018; 85025

== ENCOUNTER 2023-11-27 03:15 | Outpatient (CLI) | payer MEDICARE, SELFPAY ==
[2023-11-27 16:07] LABS: HGB 12.1 g/dL (13.5-17.5)
[2023-11-27 17:52] LABS: Anion Gap 9.2 mmol/L (3-11); BUN 18 mg/dL (7-18); CO2 30.8 mmol/L (21.0-32.0); CREATININE 1.2 mg/dL (0.70-1.30); Calcium 8.9 mg/dL (8.5-10.1); Chloride 103 mmol/L (98-107); Estimated GFR 60.75 (mL/min/1.73m2); Glucose 162 mg/dL (74-106); Potassium 4.4 mmol/L (3.5-5.1); Sodium 143 mmol/L (136-145)
== END 2023-11-27 03:16 | disposition home or self-care (01) ==
LOC: LBO 03:16
PROVIDERS: PCP Student in an Organized Health Care Education/Training Program; Visit Provider Student in an Organized Health Care Education/Training Program
DX: I10 Essential (primary) hypertension (principal); Z91.89 Other specified personal risk factors, not elsewhere classified; E11.9 Type 2 diabetes mellitus without complications; T45.1X5A Adverse effect of antineoplastic and immunosuppressive drugs, initial encounter
CPT/HCPCS: 36415; 80048; 83735; 85018

== ENCOUNTER 2023-12-02 04:12 | Outpatient (CLI) | payer MEDICARE, SELFPAY ==
[2023-12-02 08:04] LABS: Abs Immature Grans 0.02 10^3/uL (0.0-0.06); Absolute Basophil Count 0.04 10^3/uL (0.0-0.2); Absolute Eosinophil Count 0.15 10^3/uL (0.0-0.7); Absolute Lymphocyte Count 1.83 10^3/uL (1.2-3.4); Absolute Monocyte Count 0.79 10^3/uL (0.1-0.8); Absolute Neutrophil Count 2.77 10^3/uL (1.2-6.7); Basophils % 0.7 %; Eosinophils % 2.7 %; HCT 39.6 % (40.0-50.0); HGB 12.6 g/dL (13.5-17.5); Immature Grans % 0.4 %; Lymphocytes % 32.7 %; MCH 30.1 pg (27.0-33.0); MCHC 31.8 % (32.0-36.0); MCV 95 fL (80-95); MPV 9.6 fL (8.0-11.0); Monocytes % 14.1 %; Neutrophils % 49.4 %; Platelet Count 195 10^3/uL (130-400); RBC 4.19 10^6/uL (4.36-5.78); RDW 12.9 % (11.8-14.1); RDW-SD 44.4 fL
[2023-12-02 08:08] LABS: Bilirubin Negative (Negative); Blood Negative (Negative); Clarity Clear (Clear); Glucose Negative (Negative); Ketones Negative (Negative); Leukocyte Esterase Small (Negative); Nitrite Negative (Negative); Specific Gravity 1.015 (1.005-1.025); Urobilinogen 0.2 mg/dL (Up to 0.2); pH 8.5 (5-8)
[2023-12-02 08:15] LABS: Bacteria Rare HPF (Negative); C & S Indicated? No; Casts Negative LPF (Negative); Crystals Negative HPF (Negative); Epithelial Cells Rare HPF (Negative); Mucus Negative (Negative); RBC Negative HPF (0-2)
[2023-12-02 08:34] LABS: ALT 33 U/L (16-63); AST 32 U/L (15-37); Albumin 2.9 g/dL (3.4-5.0); Alkaline Phosphatase 98 U/L (46-116); Anion Gap 4.8 mmol/L (3-11); BUN 17 mg/dL (7-18); Bilirubin, Total 0.59 mg/dL (0.2-1.0); CO2 32.2 mmol/L (21.0-32.0); CREATININE 1.1 mg/dL (0.70-1.30); Calcium 9.4 mg/dL (8.5-10.1); Chloride 101 mmol/L (98-107); Estimated GFR 67.44 (mL/min/1.73m2); Glucose 146 mg/dL (74-106); Potassium 3.8 mmol/L (3.5-5.1); Sodium 138 mmol/L (136-145); TSH (W/Ref FT4) 0.01 uIU/mL (0.36-3.74); Total Protein 6.8 g/dL (6.4-8.2)
[2023-12-02 08:51] LABS: FREE T4 1.49 ng/dL (0.76-1.46)
== END 2023-12-02 04:13 | disposition home or self-care (01) ==
PROVIDERS: PCP Student in an Organized Health Care Education/Training Program; Visit Provider Nurse Practitioner Family
DX: Z79.899 Other long term (current) drug therapy (principal); C34.31 Malignant neoplasm of lower lobe, right bronchus or lung
CPT/HCPCS: 36415; 80053; 83690; 81003; 81015; 83735; 84439; 84443; 85025

== ENCOUNTER 2023-12-11 03:50 | Outpatient (CLI) | payer MEDICARE, SELFPAY ==
[2023-12-11 15:30] LABS: Anion Gap 5.8 mmol/L (3-11); BUN 19 mg/dL (7-18); CO2 34.2 mmol/L (21.0-32.0); CREATININE 1.1 mg/dL (0.70-1.30); Calcium 9.1 mg/dL (8.5-10.1); Chloride 96 mmol/L (98-107); Estimated GFR 67.44 (mL/min/1.73m2); Glucose 214 mg/dL (74-106); Magnesium 2.1 mg/dL (1.8-2.4); Potassium 3.9 mmol/L (3.5-5.1); Sodium 136 mmol/L (136-145)
== END 2023-12-11 03:51 | disposition home or self-care (01) ==
LOC: LBO 03:50
PROVIDERS: PCP Student in an Organized Health Care Education/Training Program; Visit Provider Student in an Organized Health Care Education/Training Program
DX: Z51.81 Encounter for therapeutic drug level monitoring (principal); I10 Essential (primary) hypertension
CPT/HCPCS: 36415; 80048; 83735

== ENCOUNTER 2023-12-20 00:30 | Outpatient (CLI) | payer MEDICARE, SELFPAY ==
--- NOTE | 2023-12-20 | DI.MRI_ITS ---
Exam(s) MR BRAIN WO/W EXAM: MR BRAIN WO/W CLINICAL HISTORY: Primary malignant neoplasm of RLL of lung, C34.31; secondary malignant TECHNIQUE: Multiplanar multisequence MRI of the brain was performed. CONTRAST MATERIAL: IV Contrast: 16 mL of Dotarem contrast administered. COMPARISON: MR MR BRAIN WO/W from 09/05/2023 FINDINGS: VENTRICLES AND EXTRA AXIAL SPACES: Normal in size and morphology for the patient's age. HEMORRHAGE: None. CEREBRAL PARENCHYMA: No focus of restricted diffusion to suggest acute infarct. There are few scatter ed areas of hyperintense signal seen in the white matter on the FLAIR and T2 weighted images most con sistent with chronic microvascular ischemic disease. MIDLINE SHIFT: None. BRAINSTEM/CEREBELLUM: Normal. CALVARIUM: Normal. ENHANCEMENT: There is a new 3 mm enhancing lesion in the right cerebellum (series [id number], image 4). T here has been slight decrease in size of the left cerebellar lesion which now measures 6.6 x 7.9 mm c ompared to 7.5 x 8.9 mm. The lesion previously seen in the right occipital lobe is not present on th e current examination. There has been interval decrease in size of the lesion in the left basal gang lynette which now measures 2 mm compared to 3 mm on the prior examination. Both the right frontal lesion s have shown decrease in size and surrounding edema. The right parietal lesion is not visualized on the current examination. VISUALIZED PARANASAL SINUSES/MASTOIDS: There is mild mucosal thickening in the maxillary sinuses. Th ere is fluid seen in the left mastoid air cells. The remaining visualized paranasal sinuses are nelly r. [place]: Normal flow void. PITUITARY GLAND: Unremarkable. OTHER FINDINGS: IMPRESSION: 1. Overall, the previously seen lesions show interval decrease in size or are not visualized on the c urrent examination. 2. There is a new 3 mm enhancing lesion in the right cerebellum. DATA REPOSITORY:
[2023-12-20] MEDS: Normal Saline Flush 10 ML SYR IVP (10:24)
[2023-12-20] MEDS: Gadoterate meglumine 20 ML SYRINGE 16 ML IVP (10:26)
== END 2023-12-20 00:50 ==
LOC: DI 00:30
PROVIDERS: PCP Student in an Organized Health Care Education/Training Program; Visit Provider Internal Medicine Medical Oncology
DX: C34.31 Malignant neoplasm of lower lobe, right bronchus or lung (principal); C78.7 Secondary malignant neoplasm of liver and intrahepatic bile duct
CPT/HCPCS: 70553

== ENCOUNTER 2023-12-23 01:52 | Outpatient (CLI) | payer MEDICARE, SELFPAY ==
[2023-12-23 08:50] LABS: Abs Immature Grans 0.01 10^3/uL (0.0-0.06); Absolute Basophil Count 0.05 10^3/uL (0.0-0.2); Absolute Eosinophil Count 0.11 10^3/uL (0.0-0.7); Absolute Lymphocyte Count 2.13 10^3/uL (1.2-3.4); Absolute Monocyte Count 0.63 10^3/uL (0.1-0.8); Absolute Neutrophil Count 3.38 10^3/uL (1.2-6.7); Basophils % 0.8 %; Eosinophils % 1.7 %; HCT 40.9 % (40.0-50.0); Immature Grans % 0.2 %; Lymphocytes % 33.8 %; MCH 29.5 pg (27.0-33.0); MCHC 31.8 % (32.0-36.0); MCV 93 fL (80-95); Neutrophils % 53.5 %; Platelet Count 166 10^3/uL (130-400); RDW 13.7 % (11.8-14.1); RDW-SD 47.1 fL; WBC 6.31 10^3/uL (4.4-10.8)
[2023-12-23 08:55] LABS: Bilirubin Negative (Negative); Blood Negative (Negative); Clarity Clear (Clear); Glucose Negative (Negative); Ketones Negative (Negative); Leukocyte Esterase Trace (Negative); Nitrite Negative (Negative); Specific Gravity 1.015 (1.005-1.025); Urobilinogen 0.2 mg/dL (Up to 0.2); pH 8.5 (5-8)
[2023-12-23 09:02] LABS: Bacteria Rare HPF (Negative); C & S Indicated? No; Casts Negative LPF (Negative); Crystals Negative HPF (Negative); Epithelial Cells Rare HPF (Negative); Mucus Negative (Negative); RBC Negative HPF (0-2); WBC 0-2 HPF (0-5)
[2023-12-23 09:15] LABS: ALT 31 U/L (16-63); AST 32 U/L (15-37); Alkaline Phosphatase 97 U/L (46-116); Anion Gap 1.8 mmol/L (3-11); BUN 20 mg/dL (7-18); Bilirubin, Total 0.58 mg/dL (0.2-1.0); CO2 35.2 mmol/L (21.0-32.0); CREATININE 1.1 mg/dL (0.70-1.30); Calcium 9.2 mg/dL (8.5-10.1); Chloride 96 mmol/L (98-107); Estimated GFR 67.44 (mL/min/1.73m2); Glucose 109 mg/dL (74-106); Magnesium 2.2 mg/dL (1.8-2.4); Potassium 4.1 mmol/L (3.5-5.1); Sodium 133 mmol/L (136-145); TSH (W/Ref FT4) 16.55 uIU/mL (0.36-3.74); Total Protein 6.9 g/dL (6.4-8.2)
[2023-12-23 09:33] LABS: FREE T4 0.79 ng/dL (0.76-1.46)
== END 2023-12-23 01:53 | disposition home or self-care (01) ==
LOC: LBO 01:52
PROVIDERS: PCP Student in an Organized Health Care Education/Training Program; Visit Provider Internal Medicine Medical Oncology
DX: Z79.899 Other long term (current) drug therapy (principal)
CPT/HCPCS: 36415; 80053; 81003; 81015; 83735; 84439; 84443; 85025

== ENCOUNTER → 2024-01-09 11:27 | Outpatient (BNVA) | payer MEDICARE, SELFPAY | PROVIDERS: PCP Student in an Organized Health Care Education/Training Program; Referring Provider Student in an Organized Health Care Education/Training Program; Visit Provider Nurse Practitioner Family | DX: L60.3 Nail dystrophy (principal); C34.91 Malignant neoplasm of unspecified part of right bronchus or lung; C79.31 Secondary malignant neoplasm of brain; E11.9 Type 2 diabetes mellitus without complications; L60.2 Onychogryphosis; L60.8 Other nail disorders; L84 Corns and callosities; L90.5 Scar conditions and fibrosis of skin; M79.672 Pain in left foot; L60.0 Ingrowing nail; B35.3 Tinea pedis | CPT/HCPCS: 11305; 11721 ==

== ENCOUNTER 2024-01-13 03:01 | Outpatient (CLI) | payer MEDICARE, SELFPAY ==
[2024-01-13 08:13] LABS: Abs Immature Grans 0.02 10^3/uL (0.0-0.06); Absolute Basophil Count 0.05 10^3/uL (0.0-0.2); Absolute Eosinophil Count 0.08 10^3/uL (0.0-0.7); Absolute Lymphocyte Count 1.91 10^3/uL (1.2-3.4); Absolute Monocyte Count 0.59 10^3/uL (0.1-0.8); Absolute Neutrophil Count 3.24 10^3/uL (1.2-6.7); Basophils % 0.8 %; Eosinophils % 1.4 %; HCT 41.2 % (40.0-50.0); HGB 13.5 g/dL (13.5-17.5); Immature Grans % 0.3 %; Lymphocytes % 32.4 %; MCH 29.9 pg (27.0-33.0); MCHC 32.8 % (32.0-36.0); MCV 91 fL (80-95); MPV 9.4 fL (8.0-11.0); Neutrophils % 55.1 %; Platelet Count 170 10^3/uL (130-400); RBC 4.52 10^6/uL (4.36-5.78); RDW 13.9 % (11.8-14.1); RDW-SD 47.1 fL; WBC 5.89 10^3/uL (4.4-10.8)
[2024-01-13 08:20] LABS: Bilirubin Negative (Negative); Blood Negative (Negative); Clarity Clear (Clear); Glucose Negative (Negative); Ketones Negative (Negative); Leukocyte Esterase Trace (Negative); Nitrite Negative (Negative); Specific Gravity 1.015 (1.005-1.025); Urobilinogen 0.2 mg/dL (Up to 0.2); pH 7.5 (5-8)
[2024-01-13 08:26] LABS: Bacteria Negative HPF (Negative); C & S Indicated? No; Casts Negative LPF (Negative); Crystals Negative HPF (Negative); Epithelial Cells Rare HPF (Negative); Mucus Negative (Negative); RBC Negative HPF (0-2); WBC 0-2 HPF (0-5)
[2024-01-13 08:38] LABS: ALT 26 U/L (16-63); AST 31 U/L (15-37); Albumin 3.1 g/dL (3.4-5.0); Alkaline Phosphatase 96 U/L (46-116); Anion Gap 5.7 mmol/L (3-11); BUN 20 mg/dL (7-18); Bilirubin, Total 0.66 mg/dL (0.2-1.0); CO2 32.3 mmol/L (21.0-32.0); CREATININE 1.2 mg/dL (0.70-1.30); Calcium 8.9 mg/dL (8.5-10.1); Chloride 93 mmol/L (98-107); Estimated GFR 60.75 (mL/min/1.73m2); Glucose 195 mg/dL (74-106); Potassium 4.1 mmol/L (3.5-5.1); Sodium 131 mmol/L (136-145); TSH (W/Ref FT4) 8.74 uIU/mL (0.36-3.74)
[2024-01-13 08:56] LABS: FREE T4 1.07 ng/dL (0.76-1.46)
== END 2024-01-13 03:02 | disposition home or self-care (01) ==
PROVIDERS: PCP Student in an Organized Health Care Education/Training Program; Visit Provider Nurse Practitioner Family
DX: Z79.899 Other long term (current) drug therapy (principal)
CPT/HCPCS: 36415; 80053; 81003; 81015; 83735; 84439; 84443; 85025

== ENCOUNTER 2024-01-22 05:05 | Outpatient (CLI) | payer MEDICARE, SELFPAY ==
[2024-01-22 10:01] LABS: BUN 16 mg/dL (7-18); Calcium 9.1 mg/dL (8.5-10.1); Chloride 100 mmol/L (98-107); Estimated GFR 75.61 (mL/min/1.73m2); Glucose 92 mg/dL (74-106); Magnesium 2.1 mg/dL (1.8-2.4); Potassium 3.9 mmol/L (3.5-5.1); Sodium 139 mmol/L (136-145)
== END 2024-01-22 05:06 | disposition home or self-care (01) ==
PROVIDERS: PCP Student in an Organized Health Care Education/Training Program; Visit Provider Student in an Organized Health Care Education/Training Program
DX: R35.89 Other polyuria (principal); Z86.39 Personal history of other endocrine, nutritional and metabolic disease; Z91.89 Other specified personal risk factors, not elsewhere classified; R60.0 Localized edema
CPT/HCPCS: 36415; 80048; 83735

== ENCOUNTER 2024-02-03 02:11 | Outpatient (CLI) | payer MEDICARE, SELFPAY ==
[2024-02-03 08:43] LABS: Absolute Basophil Count 0.06 10^3/uL (0.0-0.2); Absolute Eosinophil Count 0.23 10^3/uL (0.0-0.7); Absolute Lymphocyte Count 1.87 10^3/uL (1.2-3.4); Absolute Monocyte Count 0.57 10^3/uL (0.1-0.8); Absolute Neutrophil Count 3.12 10^3/uL (1.2-6.7); Eosinophils % 3.9 %; MCH 29.7 pg (27.0-33.0); MCHC 32.5 % (32.0-36.0); MCV 92 fL (80-95); MPV 9.3 fL (8.0-11.0); Monocytes % 9.7 %; Neutrophils % 53.4 %; Platelet Count 163 10^3/uL (130-400); RBC 4.37 10^6/uL (4.36-5.78); RDW 14.2 % (11.8-14.1); RDW-SD 48.1 fL; WBC 5.85 10^3/uL (4.4-10.8)
[2024-02-03 08:45] LABS: Bilirubin Negative (Negative); Blood Negative (Negative); Clarity Clear (Clear); Glucose Negative (Negative); Ketones Negative (Negative); Leukocyte Esterase Small (Negative); Nitrite Negative (Negative); Specific Gravity 1.015 (1.005-1.025); Urobilinogen 0.2 mg/dL (Up to 0.2); pH 8.5 (5-8)
[2024-02-03 08:50] LABS: Bacteria Rare HPF (Negative); C & S Indicated? No; Casts Negative LPF (Negative); Crystals Negative HPF (Negative); Epithelial Cells Rare HPF (Negative); Mucus Negative (Negative); RBC 0-2 HPF (0-2)
[2024-02-03 09:07] LABS: ALT 26 U/L (16-63); AST 29 U/L (15-37); Albumin 3.1 g/dL (3.4-5.0); Alkaline Phosphatase 89 U/L (46-116); Anion Gap 5.2 mmol/L (3-11); BUN 23 mg/dL (7-18); Bilirubin, Total 0.54 mg/dL (0.2-1.0); CO2 33.8 mmol/L (21.0-32.0); CREATININE 1.2 mg/dL (0.70-1.30); Calcium 9.7 mg/dL (8.5-10.1); Chloride 99 mmol/L (98-107); Estimated GFR 60.75 (mL/min/1.73m2); Glucose 173 mg/dL (74-106); Magnesium 2.2 mg/dL (1.8-2.4); Potassium 4.5 mmol/L (3.5-5.1); Sodium 138 mmol/L (136-145); TSH (W/Ref FT4) 6.17 uIU/mL (0.36-3.74); Total Protein 6.8 g/dL (6.4-8.2)
[2024-02-03 09:55] LABS: FREE T4 0.98 ng/dL (0.76-1.46)
== END 2024-02-03 02:12 | disposition home or self-care (01) ==
PROVIDERS: PCP Student in an Organized Health Care Education/Training Program; Visit Provider Nurse Practitioner Family
DX: Z79.899 Other long term (current) drug therapy (principal); C34.31 Malignant neoplasm of lower lobe, right bronchus or lung; C78.7 Secondary malignant neoplasm of liver and intrahepatic bile duct
CPT/HCPCS: 36415; 80053; 81003; 81015; 83735; 84439; 84443; 85025

== ENCOUNTER 2024-02-12 01:37 | Outpatient (CLI) | payer MEDICARE, SELFPAY ==
[2024-02-12 08:51] LABS: Abs Immature Grans 0.02 10^3/uL (0.0-0.06); Absolute Basophil Count 0.05 10^3/uL (0.0-0.2); Absolute Eosinophil Count 0.15 10^3/uL (0.0-0.7); Absolute Lymphocyte Count 1.83 10^3/uL (1.2-3.4); Absolute Monocyte Count 0.72 10^3/uL (0.1-0.8); Absolute Neutrophil Count 3.97 10^3/uL (1.2-6.7); Basophils % 0.7 %; Eosinophils % 2.2 %; HCT 40.3 % (40.0-50.0); HGB 13.2 g/dL (13.5-17.5); Immature Grans % 0.3 %; Lymphocytes % 27.2 %; MCH 29.8 pg (27.0-33.0); MCHC 32.8 % (32.0-36.0); MCV 91 fL (80-95); MPV 9.7 fL (8.0-11.0); Monocytes % 10.7 %; Neutrophils % 58.9 %; Platelet Count 172 10^3/uL (130-400); RBC 4.43 10^6/uL (4.36-5.78); RDW 14.5 % (11.8-14.1); RDW-SD 48.5 fL; WBC 6.74 10^3/uL (4.4-10.8)
[2024-02-12 09:11] LABS: ALT 27 U/L (16-63); AST 30 U/L (15-37); Alkaline Phosphatase 86 U/L (46-116); Anion Gap 2.5 mmol/L (3-11); BUN 22 mg/dL (7-18); Bilirubin, Total 0.56 mg/dL (0.2-1.0); CO2 34.5 mmol/L (21.0-32.0); CREATININE 1.3 mg/dL (0.70-1.30); Calcium 9.1 mg/dL (8.5-10.1); Chloride 99 mmol/L (98-107); Estimated GFR 55.19 (mL/min/1.73m2); Glucose 166 mg/dL (74-106); Magnesium 2.1 mg/dL (1.8-2.4); Potassium 4.8 mmol/L (3.5-5.1); Sodium 136 mmol/L (136-145); Total Protein 6.7 g/dL (6.4-8.2)
[2024-02-12 09:35] LABS: Bilirubin Negative (Negative); Blood Negative (Negative); Clarity Clear (Clear); Glucose Negative (Negative); Ketones Negative (Negative); Leukocyte Esterase Trace (Negative); Nitrite Negative (Negative); Specific Gravity 1.015 (1.005-1.025); Urobilinogen 0.2 mg/dL (Up to 0.2); pH 8.5 (5-8)
[2024-02-12 09:45] LABS: Bacteria Rare HPF (Negative); C & S Indicated? No; Casts Negative LPF (Negative); Crystals Negative HPF (Negative); Epithelial Cells Negative HPF (Negative); Mucus Negative (Negative); RBC 0-2 HPF (0-2); WBC 0-2 HPF (0-5)
[2024-02-12 10:03] LABS: TSH 6.31 uIU/mL (0.36-3.74)
[2024-02-12 18:46] LABS: FREE T4 1.07 ng/dL (0.76-1.46)
== END 2024-02-12 01:38 | disposition home or self-care (01) ==
LOC: LBO 01:37
PROVIDERS: PCP Student in an Organized Health Care Education/Training Program; Visit Provider Internal Medicine Medical Oncology
DX: C78.7 Secondary malignant neoplasm of liver and intrahepatic bile duct (principal); Z79.899 Other long term (current) drug therapy; C34.31 Malignant neoplasm of lower lobe, right bronchus or lung
CPT/HCPCS: 36415; 80053; 81003; 81015; 83735; 84436; 84439; 84443; 85025

== ENCOUNTER → 2024-02-24 14:31 | Outpatient (BNVA) | payer MEDICARE, SELFPAY | PROVIDERS: PCP Student in an Organized Health Care Education/Training Program; Referring Provider Student in an Organized Health Care Education/Training Program; Visit Provider Podiatrist | DX: L84 Corns and callosities (principal); L90.6 Striae atrophicae; M79.672 Pain in left foot; L60.0 Ingrowing nail; E11.8 Type 2 diabetes mellitus with unspecified complications; L60.3 Nail dystrophy; C34.90 Malignant neoplasm of unspecified part of unspecified bronchus or lung; C79.31 Secondary malignant neoplasm of brain; B35.3 Tinea pedis | CPT/HCPCS: 17110 ==

== ENCOUNTER 2024-03-03 02:59 | Outpatient (CLI) | payer MEDICARE, SELFPAY ==
[2024-03-03 10:26] LABS: Abs Immature Grans 0.02 10^3/uL (0.0-0.06); Absolute Basophil Count 0.06 10^3/uL (0.0-0.2); Absolute Eosinophil Count 0.13 10^3/uL (0.0-0.7); Absolute Lymphocyte Count 2.16 10^3/uL (1.2-3.4); Absolute Monocyte Count 0.77 10^3/uL (0.1-0.8); Absolute Neutrophil Count 3.61 10^3/uL (1.2-6.7); Basophils % 0.9 %; Eosinophils % 1.9 %; HCT 39.9 % (40.0-50.0); HGB 13.4 g/dL (13.5-17.5); Immature Grans % 0.3 %; MCH 30.1 pg (27.0-33.0); MCHC 33.6 % (32.0-36.0); MCV 90 fL (80-95); MPV 9.2 fL (8.0-11.0); Monocytes % 11.4 %; Neutrophils % 53.5 %; Platelet Count 227 10^3/uL (130-400); RBC 4.45 10^6/uL (4.36-5.78); RDW 14.3 % (11.8-14.1); RDW-SD 47.1 fL; WBC 6.75 10^3/uL (4.4-10.8)
[2024-03-03 10:33] LABS: Bilirubin Negative (Negative); Blood Negative (Negative); Clarity Clear (Clear); Glucose Negative (Negative); Ketones Negative (Negative); Leukocyte Esterase Small (Negative); Nitrite Negative (Negative); Specific Gravity 1.015 (1.005-1.025); Urobilinogen 0.2 mg/dL (Up to 0.2)
[2024-03-03 10:40] LABS: Bacteria Rare HPF (Negative); C & S Indicated? No; Casts Negative LPF (Negative); Crystals Negative HPF (Negative); Epithelial Cells Rare HPF (Negative); Mucus Negative (Negative); RBC 0-2 HPF (0-2)
[2024-03-03 10:59] LABS: ALT 44 U/L (16-63); AST 38 U/L (15-37); Albumin 3.2 g/dL (3.4-5.0); Alkaline Phosphatase 133 U/L (46-116); Anion Gap 6.8 mmol/L (3-11); BUN 22 mg/dL (7-18); Bilirubin, Total 0.59 mg/dL (0.2-1.0); CO2 30.2 mmol/L (21.0-32.0); CREATININE 1.2 mg/dL (0.70-1.30); Calcium 9.1 mg/dL (8.5-10.1); Chloride 97 mmol/L (98-107); Estimated GFR 60.75 (mL/min/1.73m2); FREE T4 1.13 ng/dL (0.76-1.46); Glucose 134 mg/dL (74-106); Magnesium 2.2 mg/dL (1.8-2.4); Sodium 134 mmol/L (136-145); TSH 6.07 uIU/mL (0.36-3.74); Total Protein 7.2 g/dL (6.4-8.2)
== END 2024-03-03 03:00 | disposition home or self-care (01) ==
LOC: LBO 02:59
PROVIDERS: Nurse Practitioner Family; PCP Student in an Organized Health Care Education/Training Program; Visit Provider Internal Medicine Medical Oncology
DX: Z79.899 Other long term (current) drug therapy (principal); C34.31 Malignant neoplasm of lower lobe, right bronchus or lung
CPT/HCPCS: 36415; 80053; 81003; 81015; 83735; 84439; 84443; 85025

== ENCOUNTER 2024-03-19 01:29 | Outpatient (CLI) | payer MEDICARE, SELFPAY ==
--- NOTE | 2024-03-19 | DI.MRI_ITS ---
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 TECHNIQUE: Multiplanar multisequence MRI of the brain was performed. CONTRAST MATERIAL: IV Contrast: 16 ML of Dotarem contrast administered. COMPARISON: MR MR BRAIN WO/W from 09/05/2023 MR MR BRAIN WO/W from 12/20/2023 FINDINGS: VENTRICLES AND EXTRA AXIAL SPACES: Normal in size and morphology for the patient's age. HEMORRHAGE: None. CEREBRAL PARENCHYMA: No focus of restricted diffusion to suggest acute infarct. Mild atrophy, consistent with the patient's age. Minimal scattered high signal foci in the white mat ter consistent with microvascular changes. The previously noted left caudate metastasis is not visible on the current exam. The 2 lesions previously noted in the periphery of the anterior right frontal lobe show slight decrea se in size. There is similar surrounding edema. Lesion in the medial right frontal lobe near the falx appears unchanged. Tiny lesion in the medial right parietal lobe near the falx has decreased in conspicuity. There is a new enhancing lesion seen in the superior, anterior right parietal lobe laterally measurin g 4.5 millimeters. BRAINSTEM/CEREBELLUM: Slight increase in size right inferior cerebellar metastasis, now measuring 7 b y 5 millimeters compared with 3 millimeters on the prior exam. Stable size of left cerebellar hemisp here lesion.. CALVARIUM: Normal. VISUALIZED PARANASAL SINUSES/MASTOIDS: The mucosal thickening at the floors of the maxillary sinuses. Orbits: Unremarkable. Pituitary: Not enlarged. Vasculature: Normal flow voids. IMPRESSION: New 4.5 millimeter enhancing lesion in the anterosuperior right parietal lobe. The remaining lesions are either decreased or stable in size. DATA REPOSITORY:
[2024-03-19] MEDS: Gadoterate meglumine 20 ML SYRINGE IVP (07:59)
[2024-03-19] MEDS: Normal Saline Flush 10 ML SYR IJ (08:00)
== END 2024-03-19 01:49 ==
PROVIDERS: PCP Student in an Organized Health Care Education/Training Program; Visit Provider Nurse Practitioner Family
DX: C79.31 Secondary malignant neoplasm of brain (principal)
CPT/HCPCS: 70553

== ENCOUNTER 2024-03-23 02:40 | Outpatient (CLI) | payer MEDICARE, SELFPAY ==
[2024-03-23 09:50] LABS: Abs Immature Grans 0.01 10^3/uL (0.0-0.06); Absolute Basophil Count 0.05 10^3/uL (0.0-0.2); Absolute Eosinophil Count 0.17 10^3/uL (0.0-0.7); Absolute Lymphocyte Count 1.95 10^3/uL (1.2-3.4); Absolute Monocyte Count 0.66 10^3/uL (0.1-0.8); Absolute Neutrophil Count 3.43 10^3/uL (1.2-6.7); Basophils % 0.8 %; Eosinophils % 2.7 %; HCT 41.7 % (40.0-50.0); HGB 13.7 g/dL (13.5-17.5); Immature Grans % 0.2 %; Lymphocytes % 31.1 %; MCH 30.2 pg (27.0-33.0); MCHC 32.9 % (32.0-36.0); MCV 92 fL (80-95); MPV 9.6 fL (8.0-11.0); Monocytes % 10.5 %; Neutrophils % 54.7 %; Platelet Count 161 10^3/uL (130-400); RBC 4.54 10^6/uL (4.36-5.78); RDW 14.2 % (11.8-14.1); RDW-SD 47.3 fL; WBC 6.27 10^3/uL (4.4-10.8)
[2024-03-23 09:56] LABS: Bilirubin Negative (Negative); Blood Negative (Negative); Clarity Clear (Clear); Glucose Negative (Negative); Ketones Negative (Negative); Leukocyte Esterase Trace (Negative); Nitrite Negative (Negative); Specific Gravity 1.015 (1.005-1.025); Urobilinogen 0.2 mg/dL (Up to 0.2)
[2024-03-23 10:03] LABS: Bacteria Rare HPF (Negative); C & S Indicated? No; Epithelial Cells Rare HPF (Negative); RBC 0-2 HPF (0-2)
[2024-03-23 10:18] LABS: ALT 28 U/L (16-63); AST 30 U/L (15-37); Albumin 3.3 g/dL (3.4-5.0); Alkaline Phosphatase 90 U/L (46-116); Anion Gap 7.3 mmol/L (3-11); BUN 16 mg/dL (7-18); CO2 31.7 mmol/L (21.0-32.0); CREATININE 1.2 mg/dL (0.70-1.30); Chloride 100 mmol/L (98-107); Estimated GFR 60.75 (mL/min/1.73m2); FREE T4 1.07 ng/dL (0.76-1.46); Glucose 137 mg/dL (74-106); Magnesium 2.2 mg/dL (1.8-2.4); Sodium 139 mmol/L (136-145); TSH 6.66 uIU/mL (0.36-3.74); Total Protein 7.1 g/dL (6.4-8.2)
== END 2024-03-23 02:41 | disposition home or self-care (01) ==
PROVIDERS: PCP Student in an Organized Health Care Education/Training Program; Visit Provider Nurse Practitioner Family
DX: Z79.899 Other long term (current) drug therapy (principal); C34.31 Malignant neoplasm of lower lobe, right bronchus or lung
CPT/HCPCS: 36415; 80053; 81003; 81015; 83735; 84439; 84443; 85025

== ENCOUNTER 2024-04-13 02:30 | Outpatient (CLI) | payer MEDICARE, SELFPAY ==
[2024-04-13 10:43] LABS: Absolute Basophil Count 0.05 10^3/uL (0.0-0.2); Absolute Eosinophil Count 0.13 10^3/uL (0.0-0.7); Absolute Lymphocyte Count 2.17 10^3/uL (1.2-3.4); Absolute Monocyte Count 0.73 10^3/uL (0.1-0.8); Absolute Neutrophil Count 3.67 10^3/uL (1.2-6.7); Basophils % 0.7 %; Eosinophils % 1.9 %; HCT 42.2 % (40.0-50.0); Lymphocytes % 32.1 %; MCH 30.6 pg (27.0-33.0); MCHC 33.2 % (32.0-36.0); MCV 92 fL (80-95); MPV 9.7 fL (8.0-11.0); Monocytes % 10.8 %; Neutrophils % 54.5 %; Platelet Count 155 10^3/uL (130-400); RBC 4.57 10^6/uL (4.36-5.78); RDW 13.2 % (11.8-14.1); RDW-SD 44.7 fL; WBC 6.75 10^3/uL (4.4-10.8)
[2024-04-13 10:45] LABS: Bilirubin Negative (Negative); Blood Negative (Negative); Clarity Clear (Clear); Glucose Negative (Negative); Ketones Negative (Negative); Leukocyte Esterase Trace (Negative); Nitrite Negative (Negative); Specific Gravity 1.015 (1.005-1.025); Urobilinogen 0.2 mg/dL (Up to 0.2); pH 8.5 (5-8)
[2024-04-13 11:06] LABS: Bacteria Negative HPF (Negative); C & S Indicated? No; Casts Negative LPF (Negative); Crystals Negative HPF (Negative); Epithelial Cells Negative HPF (Negative); Mucus Negative (Negative); Other Cells Negative (Negative); RBC Negative HPF (0-2)
[2024-04-13 11:12] LABS: ALT 30 U/L (16-63); AST 31 U/L (15-37); Albumin 3.1 g/dL (3.4-5.0); Alkaline Phosphatase 88 U/L (46-116); Anion Gap 5.5 mmol/L (3-11); BUN 19 mg/dL (7-18); Bilirubin, Total 0.83 mg/dL (0.2-1.0); CO2 32.5 mmol/L (21.0-32.0); CREATININE 1.2 mg/dL (0.70-1.30); Calcium 9.2 mg/dL (8.5-10.1); Chloride 98 mmol/L (98-107); Estimated GFR 60.75 (mL/min/1.73m2); FREE T4 1.08 ng/dL (0.76-1.46); Glucose 120 mg/dL (74-106); Magnesium 1.9 mg/dL (1.8-2.4); Potassium 4.1 mmol/L (3.5-5.1); Sodium 136 mmol/L (136-145); TSH 6.51 uIU/mL (0.36-3.74)
== END 2024-04-13 02:31 | disposition home or self-care (01) ==
PROVIDERS: PCP Student in an Organized Health Care Education/Training Program; Visit Provider Nurse Practitioner Family
DX: Z79.899 Other long term (current) drug therapy (principal); C34.31 Malignant neoplasm of lower lobe, right bronchus or lung
CPT/HCPCS: 36415; 80053; 81003; 81015; 83735; 84439; 84443; 85025

== ENCOUNTER 2024-05-04 03:18 | Outpatient (CLI) | payer MEDICARE, SELFPAY ==
[2024-05-04 09:45] LABS: Abs Immature Grans 0.02 10^3/uL (0.0-0.06); Absolute Basophil Count 0.05 10^3/uL (0.0-0.2); Absolute Eosinophil Count 0.11 10^3/uL (0.0-0.7); Absolute Lymphocyte Count 1.63 10^3/uL (1.2-3.4); Absolute Monocyte Count 0.65 10^3/uL (0.1-0.8); Basophils % 0.9 %; Eosinophils % 1.9 %; HCT 42.6 % (40.0-50.0); HGB 14.1 g/dL (13.5-17.5); Immature Grans % 0.4 %; Lymphocytes % 28.8 %; MCH 30.9 pg (27.0-33.0); MCHC 33.1 % (32.0-36.0); MCV 93 fL (80-95); MPV 9.7 fL (8.0-11.0); Monocytes % 11.5 %; Neutrophils % 56.5 %; Platelet Count 156 10^3/uL (130-400); RBC 4.56 10^6/uL (4.36-5.78); RDW-SD 44.5 fL; WBC 5.66 10^3/uL (4.4-10.8)
[2024-05-04 09:46] LABS: Bilirubin Negative (Negative); Blood Negative (Negative); Clarity Clear (Clear); Glucose Negative (Negative); Ketones Negative (Negative); Leukocyte Esterase Trace (Negative); Nitrite Negative (Negative); Specific Gravity 1.015 (1.005-1.025); Urobilinogen 0.2 mg/dL (Up to 0.2)
[2024-05-04 09:58] LABS: Bacteria Rare HPF (Negative); Crystals Negative HPF (Negative); Epithelial Cells Rare HPF (Negative); RBC 0-2 HPF (0-2)
[2024-05-04 09:59] LABS: C & S Indicated? No; Casts Negative LPF (Negative); Mucus Negative (Negative)
[2024-05-04 10:08] LABS: Hemoglobin A1C 6.4 % (<5.7)
[2024-05-04 10:15] LABS: ALT 34 U/L (16-63); AST 30 U/L (15-37); Albumin 3.2 g/dL (3.4-5.0); Alkaline Phosphatase 93 U/L (46-116); Anion Gap 2.5 mmol/L (3-11); BUN 21 mg/dL (7-18); Bilirubin, Total 0.75 mg/dL (0.2-1.0); CO2 35.5 mmol/L (21.0-32.0); CREATININE 1.2 mg/dL (0.70-1.30); Calcium 9.5 mg/dL (8.5-10.1); Chloride 101 mmol/L (98-107); Estimated GFR 60.75 (mL/min/1.73m2); FREE T4 1.19 ng/dL (0.76-1.46); Glucose 151 mg/dL (74-106); Magnesium 2.1 mg/dL (1.8-2.4); Potassium 4.1 mmol/L (3.5-5.1); Sodium 139 mmol/L (136-145); TSH 4.98 uIU/mL (0.36-3.74)
== END 2024-05-04 03:19 | disposition home or self-care (01) ==
PROVIDERS: Nurse Practitioner Adult Health; PCP Student in an Organized Health Care Education/Training Program; Visit Provider Nurse Practitioner Family
DX: E11.9 Type 2 diabetes mellitus without complications (principal); Z79.899 Other long term (current) drug therapy; C34.31 Malignant neoplasm of lower lobe, right bronchus or lung
CPT/HCPCS: 36415; 80053; 81003; 81015; 83036; 83735; 84439; 84443; 85025

== ENCOUNTER → 2024-05-14 11:17 | Outpatient (BNVA) | payer MEDICARE, SELFPAY | PROVIDERS: PCP Nurse Practitioner Adult Health; Referring Provider Student in an Organized Health Care Education/Training Program; Visit Provider Podiatrist | DX: M79.671 Pain in right foot (principal); M79.672 Pain in left foot; L90.5 Scar conditions and fibrosis of skin; L60.0 Ingrowing nail; E11.8 Type 2 diabetes mellitus with unspecified complications; L60.3 Nail dystrophy; C34.90 Malignant neoplasm of unspecified part of unspecified bronchus or lung; C79.31 Secondary malignant neoplasm of brain; B35.3 Tinea pedis; G62.89 Other specified polyneuropathies; B35.1 Tinea unguium; L85.8 Other specified epidermal thickening; L84 Corns and callosities | CPT/HCPCS: 11055; 11719 ==

== ENCOUNTER 2024-05-25 02:42 | Outpatient (CLI) | payer MEDICARE, SELFPAY ==
[2024-05-25 07:48] LABS: Abs Immature Grans 0.03 10^3/uL (0.0-0.06); Absolute Basophil Count 0.05 10^3/uL (0.0-0.2); Absolute Eosinophil Count 0.18 10^3/uL (0.0-0.7); Absolute Lymphocyte Count 1.79 10^3/uL (1.2-3.4); Absolute Monocyte Count 0.69 10^3/uL (0.1-0.8); Absolute Neutrophil Count 3.55 10^3/uL (1.2-6.7); Basophils % 0.8 %; Eosinophils % 2.9 %; HCT 42.4 % (40.0-50.0); HGB 13.7 g/dL (13.5-17.5); Immature Grans % 0.5 %; Lymphocytes % 28.5 %; MCH 30.4 pg (27.0-33.0); MCHC 32.3 % (32.0-36.0); MCV 94 fL (80-95); Neutrophils % 56.3 %; Platelet Count 141 10^3/uL (130-400); RBC 4.51 10^6/uL (4.36-5.78); RDW 13.1 % (11.8-14.1); WBC 6.29 10^3/uL (4.4-10.8)
[2024-05-25 07:51] LABS: Bilirubin Negative (Negative); Blood Negative (Negative); Clarity Clear (Clear); Glucose Negative (Negative); Ketones Negative (Negative); Leukocyte Esterase Small (Negative); Nitrite Negative (Negative); Specific Gravity 1.015 (1.005-1.025); Urobilinogen 0.2 mg/dL (Up to 0.2)
[2024-05-25 08:13] LABS: ALT 32 U/L (16-63); AST 28 U/L (15-37); Albumin 3.1 g/dL (3.4-5.0); Alkaline Phosphatase 97 U/L (46-116); Anion Gap 3.2 mmol/L (3-11); BUN 26 mg/dL (7-18); Bilirubin, Total 0.64 mg/dL (0.2-1.0); CO2 36.8 mmol/L (21.0-32.0); CREATININE 1.3 mg/dL (0.70-1.30); Calcium 8.9 mg/dL (8.5-10.1); Chloride 101 mmol/L (98-107); Estimated GFR 55.19 (mL/min/1.73m2); FREE T4 1.16 ng/dL (0.76-1.46); Glucose 201 mg/dL (74-106); Magnesium 2.1 mg/dL (1.8-2.4); Potassium 3.8 mmol/L (3.5-5.1); Sodium 141 mmol/L (136-145); TSH 7.13 uIU/mL (0.36-3.74); Total Protein 6.8 g/dL (6.4-8.2)
[2024-05-25 08:24] LABS: Bacteria Negative HPF (Negative); C & S Indicated? No; Casts Negative LPF (Negative); Crystals Negative HPF (Negative); Epithelial Cells Rare HPF (Negative); Mucus Negative (Negative); RBC Negative HPF (0-2)
== END 2024-05-25 02:43 | disposition home or self-care (01) ==
PROVIDERS: PCP Nurse Practitioner Adult Health; Visit Provider Nurse Practitioner Family
DX: Z79.899 Other long term (current) drug therapy (principal); C34.31 Malignant neoplasm of lower lobe, right bronchus or lung
CPT/HCPCS: 36415; 80053; 81003; 81015; 83735; 84439; 84443; 85025

== ENCOUNTER 2024-06-15 02:08 | Outpatient (CLI) | payer MEDICARE, SELFPAY ==
[2024-06-15 08:41] LABS: Abs Immature Grans 0.01 10^3/uL (0.0-0.06); Absolute Basophil Count 0.04 10^3/uL (0.0-0.2); Absolute Eosinophil Count 0.09 10^3/uL (0.0-0.7); Absolute Lymphocyte Count 1.47 10^3/uL (1.2-3.4); Absolute Monocyte Count 0.64 10^3/uL (0.1-0.8); Basophils % 0.7 %; Eosinophils % 1.6 %; HCT 40.8 % (40.0-50.0); HGB 13.3 g/dL (13.5-17.5); Immature Grans % 0.2 %; Lymphocytes % 25.6 %; MCH 30.8 pg (27.0-33.0); MCHC 32.6 % (32.0-36.0); MCV 94 fL (80-95); MPV 10.2 fL (8.0-11.0); Monocytes % 11.1 %; Neutrophils % 60.8 %; Platelet Count 115 10^3/uL (130-400); RBC 4.32 10^6/uL (4.36-5.78); RDW 13.5 % (11.8-14.1); RDW-SD 46.6 fL; WBC 5.75 10^3/uL (4.4-10.8)
[2024-06-15 08:45] LABS: Bilirubin Negative (Negative); Blood Negative (Negative); Clarity Clear (Clear); Glucose Negative (Negative); Ketones Negative (Negative); Leukocyte Esterase Small (Negative); Nitrite Negative (Negative); Specific Gravity 1.015 (1.005-1.025); Urobilinogen 0.2 mg/dL (Up to 0.2)
[2024-06-15 08:53] LABS: Bacteria Few HPF (Negative); C & S Indicated? No; Casts Negative LPF (Negative); Crystals Negative HPF (Negative); Epithelial Cells Negative HPF (Negative); Mucus Negative (Negative); RBC 0-2 HPF (0-2); WBC 0-2 HPF (0-5)
[2024-06-15 09:05] LABS: ALT 36 U/L (16-63); AST 29 U/L (15-37); Albumin 2.7 g/dL (3.4-5.0); Alkaline Phosphatase 94 U/L (46-116); Anion Gap 4.8 mmol/L (3-11); BUN 17 mg/dL (7-18); Bilirubin, Total 0.59 mg/dL (0.2-1.0); CO2 34.2 mmol/L (21.0-32.0); Calcium 8.8 mg/dL (8.5-10.1); Chloride 102 mmol/L (98-107); Estimated GFR 75.61 (mL/min/1.73m2); Glucose 201 mg/dL (74-106); Potassium 3.9 mmol/L (3.5-5.1); Sodium 141 mmol/L (136-145); TSH 3.59 uIU/mL (0.36-3.74); Total Protein 6.2 g/dL (6.4-8.2)
[2024-06-15 18:17] LABS: T4, Free 1.8 ng/dL (0.8-2.2)
== END 2024-06-15 02:09 | disposition home or self-care (01) ==
PROVIDERS: PCP Nurse Practitioner Adult Health; Visit Provider Nurse Practitioner Family
DX: Z79.899 Other long term (current) drug therapy (principal); C34.31 Malignant neoplasm of lower lobe, right bronchus or lung
CPT/HCPCS: 36415; 80053; 81003; 81015; 83735; 84439; 84443; 85025

== ENCOUNTER 2024-07-06 02:42 | Outpatient (CLI) | payer MEDICARE, SELFPAY ==
[2024-07-06 08:12] LABS: Abs Immature Grans 0.01 10^3/uL (0.0-0.06); Absolute Basophil Count 0.09 10^3/uL (0.0-0.2); Absolute Eosinophil Count 0.01 10^3/uL (0.0-0.7); Absolute Lymphocyte Count 1.82 10^3/uL (1.2-3.4); Absolute Monocyte Count 0.74 10^3/uL (0.1-0.8); Absolute Neutrophil Count 2.41 10^3/uL (1.2-6.7); Basophils % 1.8 %; Eosinophils % 0.2 %; HCT 37.6 % (40.0-50.0); HGB 12.4 g/dL (13.5-17.5); Immature Grans % 0.2 %; Lymphocytes % 35.8 %; MCH 30.8 pg (27.0-33.0); MCV 93 fL (80-95); Monocytes % 14.6 %; Neutrophils % 47.4 %; Platelet Count 192 10^3/uL (130-400); RBC 4.03 10^6/uL (4.36-5.78); RDW 14.9 % (11.8-14.1); RDW-SD 49.7 fL; WBC 5.08 10^3/uL (4.4-10.8)
[2024-07-06 08:14] LABS: Bilirubin Negative (Negative); Blood Negative (Negative); Clarity Clear (Clear); Glucose Negative (Negative); Ketones Negative (Negative); Leukocyte Esterase Negative (Negative); Nitrite Negative (Negative); Specific Gravity 1.015 (1.005-1.025); Urobilinogen 0.2 mg/dL (Up to 0.2); pH 7.5 (5-8)
[2024-07-06 08:47] LABS: ALT 27 U/L (16-63); AST 27 U/L (15-37); Alkaline Phosphatase 105 U/L (46-116); Anion Gap 4.8 mmol/L (3-11); BUN 20 mg/dL (7-18); Bilirubin, Total 0.8 mg/dL (0.2-1.0); CO2 34.2 mmol/L (21.0-32.0); CREATININE 1.1 mg/dL (0.70-1.30); Calcium 9.4 mg/dL (8.5-10.1); Chloride 99 mmol/L (98-107); Estimated GFR 67.44 (mL/min/1.73m2); Glucose 147 mg/dL (74-106); Magnesium 2.2 mg/dL; Potassium 3.9 mmol/L (3.5-5.1); Sodium 138 mmol/L (136-145); TSH 5.98 uIU/mL (0.36-3.74); Total Protein 6.8 g/dL (6.4-8.2)
[2024-07-06 19:20] LABS: T4, Free 1.7 ng/dL (0.8-2.2)
== END 2024-07-06 02:43 | disposition home or self-care (01) ==
LOC: LBO 02:43
PROVIDERS: PCP Nurse Practitioner Adult Health; Visit Provider Nurse Practitioner Family
DX: Z79.899 Other long term (current) drug therapy (principal); C34.31 Malignant neoplasm of lower lobe, right bronchus or lung
CPT/HCPCS: 36415; 80053; 81003; 83735; 84439; 84443; 85025

== ENCOUNTER 2024-07-23 02:19 | Outpatient (CLI) | payer MEDICARE, SELFPAY ==
[2024-07-23 09:32] LABS: Abs Immature Grans 1.74 10^3/uL (0.0-0.06); HCT 34.8 % (40.0-50.0); HGB 11.2 g/dL (13.5-17.5); MCH 30.8 pg (27.0-33.0); MCHC 32.2 % (32.0-36.0); MCV 96 fL (80-95); MPV 11.5 fL (8.0-11.0); Nucleated RBC 0.3 % (0.0-0.3); Platelet Count 124 10^3/uL (130-400); RBC 3.64 10^6/uL (4.36-5.78); RDW-SD 55.8 fL; WBC 18.19 10^3/uL (4.4-10.8)
[2024-07-23 09:53] LABS: Absolute Eosinophil Count 0.18 10^3/uL (0.0-0.7); Absolute Lymphocyte Count 2.91 10^3/uL (1.2-3.4); Absolute Monocyte Count 0.73 10^3/uL (0.1-0.8); Absolute Neutrophil Count 13.82 10^3/uL (1.2-6.7)
[2024-07-23 09:54] LABS: Diff Comment Manual Differential; Metamyelocytes % 2; Myelocytes % 1; RBC Morphology Normal
[2024-07-23 10:28] LABS: ALT 31 U/L (16-63); AST 31 U/L (15-37); Albumin 2.8 g/dL (3.4-5.0); Alkaline Phosphatase 168 U/L (46-116); Anion Gap 3.3 mmol/L (3-11); BUN 17 mg/dL (7-18); Bilirubin, Total 0.5 mg/dL (0.2-1.0); CO2 33.7 mmol/L (21.0-32.0); CREATININE 1.3 mg/dL (0.70-1.30); Calcium 9.4 mg/dL (8.5-10.1); Chloride 100 mmol/L (98-107); Estimated GFR 55.19 (mL/min/1.73m2); FREE T4 1.29 ng/dL (0.76-1.46); Glucose 231 mg/dL (74-106); Magnesium 2.1 mg/dL; Potassium 3.9 mmol/L (3.5-5.1); Sodium 137 mmol/L (136-145); TSH 4.24 uIU/mL (0.36-3.74); Total Protein 6.4 g/dL (6.4-8.2)
== END 2024-07-23 02:20 | disposition home or self-care (01) ==
PROVIDERS: PCP Nurse Practitioner Adult Health; Visit Provider Nurse Practitioner Family
DX: Z79.899 Other long term (current) drug therapy (principal); C34.31 Malignant neoplasm of lower lobe, right bronchus or lung
CPT/HCPCS: 36415; 80053; 81003; 83735; 84439; 84443; 85025

== ENCOUNTER 2024-08-03 03:34 | Outpatient (CLI) | payer MEDICARE, SELFPAY ==
[2024-08-03 09:44] LABS: Abs Immature Grans 0.05 10^3/uL (0.0-0.06); Absolute Basophil Count 0.12 10^3/uL (0.0-0.2); Absolute Eosinophil Count 0.01 10^3/uL (0.0-0.7); Absolute Lymphocyte Count 1.73 10^3/uL (1.2-3.4); Absolute Monocyte Count 0.97 10^3/uL (0.1-0.8); Absolute Neutrophil Count 4.83 10^3/uL (1.2-6.7); Basophils % 1.6 %; Eosinophils % 0.1 %; Immature Grans % 0.6 %; Lymphocytes % 22.4 %; MCH 31.3 pg (27.0-33.0); MCHC 32.4 % (32.0-36.0); MCV 97 fL (80-95); MPV 9.9 fL (8.0-11.0); Monocytes % 12.6 %; Neutrophils % 62.7 %; Platelet Count 184 10^3/uL (130-400); RBC 3.51 10^6/uL (4.36-5.78); RDW 17.1 % (11.8-14.1); RDW-SD 59.8 fL; WBC 7.71 10^3/uL (4.4-10.8)
[2024-08-03 10:19] LABS: ALT 30 U/L (16-63); AST 30 U/L (15-37); Alkaline Phosphatase 118 U/L (46-116); Anion Gap 3.2 mmol/L (3-11); BUN 21 mg/dL (7-18); Bilirubin, Total 0.6 mg/dL (0.2-1.0); CO2 32.8 mmol/L (21.0-32.0); CREATININE 1.1 mg/dL (0.70-1.30); Calcium 9.3 mg/dL (8.5-10.1); Chloride 103 mmol/L (98-107); Estimated GFR 67.44 (mL/min/1.73m2); FREE T4 1.21 ng/dL (0.76-1.46); Glucose 141 mg/dL (74-106); Magnesium 2.1 mg/dL (1.8-2.4); Potassium 4.1 mmol/L (3.5-5.1); Sodium 139 mmol/L (136-145); TSH 2.41 uIU/mL (0.36-3.74); Total Protein 6.3 g/dL (6.4-8.2)
== END 2024-08-03 03:35 | disposition home or self-care (01) ==
LOC: LBO 03:34
PROVIDERS: PCP Nurse Practitioner Adult Health; Visit Provider Nurse Practitioner Family
DX: Z79.899 Other long term (current) drug therapy (principal); C34.31 Malignant neoplasm of lower lobe, right bronchus or lung
CPT/HCPCS: 36415; 80053; 83735; 84439; 84443; 85025

== ENCOUNTER 2024-08-25 03:45 | Outpatient (CLI) | payer MEDICARE, SELFPAY ==
[2024-08-25 07:43] LABS: Abs Immature Grans 0.02 10^3/uL (0.0-0.06); Absolute Basophil Count 0.06 10^3/uL (0.0-0.2); Absolute Eosinophil Count 0.01 10^3/uL (0.0-0.7); Absolute Lymphocyte Count 1.29 10^3/uL (1.2-3.4); Absolute Monocyte Count 0.64 10^3/uL (0.1-0.8); Absolute Neutrophil Count 3.64 10^3/uL (1.2-6.7); Basophils % 1.1 %; Eosinophils % 0.2 %; HCT 32.2 % (40.0-50.0); HGB 10.7 g/dL (13.5-17.5); Immature Grans % 0.4 %; Lymphocytes % 22.8 %; MCH 31.8 pg (27.0-33.0); MCHC 33.2 % (32.0-36.0); MCV 96 fL (80-95); MPV 8.8 fL (8.0-11.0); Monocytes % 11.3 %; Neutrophils % 64.2 %; Platelet Count 141 10^3/uL (130-400); RBC 3.36 10^6/uL (4.36-5.78); RDW 18.2 % (11.8-14.1); RDW-SD 63.4 fL; WBC 5.66 10^3/uL (4.4-10.8)
[2024-08-25 07:44] LABS: Bilirubin Negative (Negative); Blood Negative (Negative); Clarity Clear (Clear); Glucose Negative (Negative); Ketones Negative (Negative); Leukocyte Esterase Small (Negative); Nitrite Negative (Negative); Specific Gravity 1.015 (1.005-1.025); Urobilinogen 0.2 mg/dL (Up to 0.2); pH 7.5 (5-8)
[2024-08-25 07:51] LABS: Bacteria Rare HPF (Negative); C & S Indicated? No; Casts Negative LPF (Negative); Crystals Negative HPF (Negative); Epithelial Cells Rare HPF (Negative); Mucus Trace (Negative); RBC 0-2 HPF (0-2)
[2024-08-25 07:57] LABS: Magnesium 2.1 mg/dL (1.8-2.4)
[2024-08-25 08:09] LABS: ALT 30 U/L (16-63); AST 28 U/L (15-37); Albumin 3.2 g/dL (3.4-5.0); Alkaline Phosphatase 98 U/L (46-116); Anion Gap 2.8 mmol/L (3-11); BUN 19 mg/dL (7-18); Bilirubin, Total 0.8 mg/dL (0.2-1.0); CO2 35.2 mmol/L (21.0-32.0); CREATININE 1.2 mg/dL (0.70-1.30); Calcium 9.3 mg/dL (8.5-10.1); Chloride 97 mmol/L (98-107); Estimated GFR 60.75 (mL/min/1.73m2); FREE T4 1.27 ng/dL (0.76-1.46); Glucose 247 mg/dL (74-106); Potassium 3.6 mmol/L (3.5-5.1); Sodium 135 mmol/L (136-145); TSH 2.42 uIU/mL (0.36-3.74); Total Protein 6.2 g/dL (6.4-8.2)
== END 2024-08-25 03:46 | disposition home or self-care (01) ==
LOC: LBO 03:45
PROVIDERS: PCP Nurse Practitioner Adult Health; Visit Provider Nurse Practitioner Family
DX: R60.0 Localized edema (principal); Z71.89 Other specified counseling; Z79.899 Other long term (current) drug therapy; C34.31 Malignant neoplasm of lower lobe, right bronchus or lung
CPT/HCPCS: 36415; 80053; 81003; 81015; 83735; 84439; 84443; 85025

== ENCOUNTER 2024-09-14 04:23 | Outpatient (CLI) | payer MEDICARE, SELFPAY ==
[2024-09-14 09:05] LABS: Abs Immature Grans 0.01 10^3/uL (0.0-0.06); Absolute Basophil Count 0.06 10^3/uL (0.0-0.2); Absolute Eosinophil Count 0.01 10^3/uL (0.0-0.7); Absolute Lymphocyte Count 1.63 10^3/uL (1.2-3.4); Absolute Monocyte Count 0.86 10^3/uL (0.1-0.8); Absolute Neutrophil Count 4.41 10^3/uL (1.2-6.7); Basophils % 0.9 %; Eosinophils % 0.1 %; HCT 32.1 % (40.0-50.0); HGB 10.4 g/dL (13.5-17.5); Immature Grans % 0.1 %; Lymphocytes % 23.4 %; MCH 32.2 pg (27.0-33.0); MCHC 32.4 % (32.0-36.0); MCV 99 fL (80-95); MPV 9.3 fL (8.0-11.0); Monocytes % 12.3 %; Neutrophils % 63.2 %; Platelet Count 179 10^3/uL (130-400); RBC 3.23 10^6/uL (4.36-5.78); RDW 17.8 % (11.8-14.1); RDW-SD 64.5 fL; WBC 6.98 10^3/uL (4.4-10.8)
[2024-09-14 09:26] LABS: Hemoglobin A1C 6.3 % (<5.7)
[2024-09-14 09:32] LABS: ALT 23 U/L (16-63); AST 24 U/L (15-37); Alkaline Phosphatase 99 U/L (46-116); BUN 21 mg/dL (7-18); Bilirubin, Total 0.7 mg/dL (0.2-1.0); CREATININE 1.1 mg/dL (0.70-1.30); Calcium 8.8 mg/dL (8.5-10.1); Chloride 99 mmol/L (98-107); Estimated GFR 67.02 (mL/min/1.73m2); FREE T4 1.24 ng/dL (0.76-1.46); Glucose 199 mg/dL (74-106); Potassium 3.8 mmol/L (3.5-5.1); Sodium 138 mmol/L (136-145); TSH 1.95 uIU/mL (0.36-3.74); Total Protein 5.9 g/dL (6.4-8.2)
== END 2024-09-14 04:24 | disposition home or self-care (01) ==
PROVIDERS: PCP Nurse Practitioner Adult Health; Visit Provider Nurse Practitioner Family
DX: Z79.899 Other long term (current) drug therapy (principal); C34.31 Malignant neoplasm of lower lobe, right bronchus or lung; E11.9 Type 2 diabetes mellitus without complications
CPT/HCPCS: 36415; 80053; 81003; 83036; 83735; 84439; 84443; 85025

== ENCOUNTER 2024-10-05 03:06 | Outpatient (CLI) | payer MEDICARE, SELFPAY ==
[2024-10-05 09:45] LABS: Abs Immature Grans 0.01 10^3/uL (0.0-0.06); Absolute Basophil Count 0.09 10^3/uL (0.0-0.2); Absolute Eosinophil Count 0.02 10^3/uL (0.0-0.7); Absolute Lymphocyte Count 1.84 10^3/uL (1.2-3.4); Absolute Monocyte Count 0.99 10^3/uL (0.1-0.8); Basophils % 1.2 %; Eosinophils % 0.3 %; HCT 32.3 % (40.0-50.0); HGB 10.7 g/dL (13.5-17.5); Immature Grans % 0.1 %; Lymphocytes % 25.4 %; MCH 32.3 pg (27.0-33.0); MCHC 33.1 % (32.0-36.0); MCV 98 fL (80-95); MPV 9.5 fL (8.0-11.0); Monocytes % 13.7 %; Neutrophils % 59.3 %; Platelet Count 216 10^3/uL (130-400); RBC 3.31 10^6/uL (4.36-5.78); RDW 16.6 % (11.8-14.1); RDW-SD 59.7 fL; WBC 7.25 10^3/uL (4.4-10.8)
[2024-10-05 10:15] LABS: ALT 27 U/L (16-63); AST 27 U/L (15-37); Alkaline Phosphatase 105 U/L (46-116); Anion Gap 3.9 mmol/L (3-11); BUN 20 mg/dL (7-18); Bilirubin, Total 0.6 mg/dL (0.2-1.0); CO2 37.1 mmol/L (21.0-32.0); Chloride 96 mmol/L (98-107); Estimated GFR 75.14 (mL/min/1.73m2); FREE T4 1.38 ng/dL (0.76-1.46); Glucose 145 mg/dL (74-106); Magnesium 2.2 mg/dL (1.8-2.4); Potassium 3.4 mmol/L (3.5-5.1); Sodium 137 mmol/L (136-145); Total Protein 6.1 g/dL (6.4-8.2)
== END 2024-10-05 03:07 | disposition home or self-care (01) ==
LOC: LBO 03:06
PROVIDERS: PCP Nurse Practitioner Adult Health; Visit Provider Nurse Practitioner Family
DX: Z79.899 Other long term (current) drug therapy (principal); C34.31 Malignant neoplasm of lower lobe, right bronchus or lung
CPT/HCPCS: 36415; 80053; 81003; 83735; 84439; 84443; 85025

== ENCOUNTER 2024-10-14 04:09 | Outpatient (CLI) | payer MEDICARE, SELFPAY ==
[2024-10-14 09:09] LABS: Anion Gap 3.8 mmol/L (3-11); BUN 21 mg/dL (7-18); CO2 34.2 mmol/L (21.0-32.0); Calcium 8.7 mg/dL (8.5-10.1); Chloride 101 mmol/L (98-107); Estimated GFR 85.27 (mL/min/1.73m2); Glucose 135 mg/dL (74-106); Magnesium 2.3 mg/dL (1.8-2.4); Potassium 3.7 mmol/L (3.5-5.1); Sodium 139 mmol/L (136-145)
== END 2024-10-14 04:10 | disposition home or self-care (01) ==
LOC: LBO 04:10
PROVIDERS: PCP Nurse Practitioner Adult Health; Visit Provider Nurse Practitioner Adult Health
DX: E87.6 Hypokalemia (principal); Z51.81 Encounter for therapeutic drug level monitoring
CPT/HCPCS: 36415; 80048; 83735

== ENCOUNTER 2024-10-19 03:34 | Outpatient (CLI) | payer MEDICARE, SELFPAY ==
[2024-10-19 11:12] LABS: Abs Immature Grans 0.02 10^3/uL (0.0-0.06); HCT 35.4 % (40.0-50.0); HGB 11.7 g/dL (13.5-17.5); Immature Grans % 0.2 %; MCH 32.7 pg (27.0-33.0); MCHC 33.1 % (32.0-36.0); MCV 99 fL (80-95); MPV 9.2 fL (8.0-11.0); Platelet Count 174 10^3/uL (130-400); RBC 3.58 10^6/uL (4.36-5.78); RDW 15.4 % (11.8-14.1); RDW-SD 56.0 fL; WBC 8.26 10^3/uL (4.4-10.8)
[2024-10-19 11:41] LABS: ALT 27 U/L (16-63); AST 24 U/L (15-37); Albumin 3.0 g/dL (3.4-5.0); Alkaline Phosphatase 82 U/L (46-116); Anion Gap 3.2 mmol/L (3-11); BUN 19 mg/dL (7-18); Bilirubin, Total 0.8 mg/dL (0.2-1.0); CO2 34.8 mmol/L (21.0-32.0); Calcium 8.7 mg/dL (8.5-10.1); Chloride 100 mmol/L (98-107); Estimated GFR 85.27 (mL/min/1.73m2); Glucose 159 mg/dL (74-106); Magnesium 2.1 mg/dL (1.8-2.4); Potassium 3.7 mmol/L (3.5-5.1); Sodium 138 mmol/L (136-145); TSH 1.79 uIU/mL (0.36-3.74); Total Protein 6.2 g/dL (6.4-8.2)
== END 2024-10-19 03:35 | disposition home or self-care (01) ==
LOC: LBO 03:34
PROVIDERS: PCP Nurse Practitioner Adult Health; Visit Provider Nurse Practitioner Family
DX: Z79.899 Other long term (current) drug therapy (principal); C34.31 Malignant neoplasm of lower lobe, right bronchus or lung
CPT/HCPCS: 36415; 80053; 83735; 84439; 84443; 85025

== ENCOUNTER 2024-11-02 01:42 | Outpatient (CLI) | payer MEDICARE, SELFPAY ==
[2024-11-02 09:03] LABS: Abs Immature Grans 0.00 10^3/uL (0.0-0.06); HCT 34.0 % (40.0-50.0); HGB 11.5 g/dL (13.5-17.5); Immature Grans % 0.0 %; MCH 32.9 pg (27.0-33.0); MCHC 33.8 % (32.0-36.0); MCV 97 fL (80-95); MPV 9.6 fL (8.0-11.0); Platelet Count 171 10^3/uL (130-400); RBC 3.50 10^6/uL (4.36-5.78); RDW 15.0 % (11.8-14.1); RDW-SD 53.3 fL; WBC 4.31 10^3/uL (4.4-10.8)
[2024-11-02 09:39] LABS: ALT 37 U/L (16-63); AST 31 U/L (15-37); Albumin 3.0 g/dL (3.4-5.0); Alkaline Phosphatase 105 U/L (46-116); Anion Gap 4.3 mmol/L (3-11); BUN 23 mg/dL (7-18); Bilirubin, Total 0.7 mg/dL (0.2-1.0); CO2 36.7 mmol/L (21.0-32.0); Calcium 9.1 mg/dL (8.5-10.1); Chloride 96 mmol/L (98-107); Estimated GFR 75.14 (mL/min/1.73m2); Glucose 269 mg/dL (74-106); Magnesium 2.1 mg/dL (1.8-2.4); Potassium 3.4 mmol/L (3.5-5.1); Sodium 137 mmol/L (136-145); TSH 2.02 uIU/mL (0.36-3.74); Total Protein 6.4 g/dL (6.4-8.2)
== END 2024-11-02 01:43 | disposition home or self-care (01) ==
LOC: LBO 01:42
PROVIDERS: PCP Nurse Practitioner Adult Health; Visit Provider Nurse Practitioner Family
DX: Z79.899 Other long term (current) drug therapy (principal); C34.31 Malignant neoplasm of lower lobe, right bronchus or lung
CPT/HCPCS: 36415; 80053; 83735; 84439; 84443; 85025

== ENCOUNTER 2024-11-16 03:27 | Outpatient (CLI) | payer MEDICARE, SELFPAY ==
[2024-11-16 08:51] LABS: Abs Immature Grans 0.02 10^3/uL (0.0-0.06); HCT 36.0 % (40.0-50.0); HGB 11.7 g/dL (13.5-17.5); Immature Grans % 0.4 %; MCH 31.9 pg (27.0-33.0); MCHC 32.5 % (32.0-36.0); MCV 98 fL (80-95); MPV 9.3 fL (8.0-11.0); Platelet Count 254 10^3/uL (130-400); RBC 3.67 10^6/uL (4.36-5.78); RDW 15.3 % (11.8-14.1); RDW-SD 54.5 fL; WBC 5.17 10^3/uL (4.4-10.8)
[2024-11-16 09:24] LABS: ALT 37 U/L (16-63); AST 33 U/L (15-37); Albumin 3.3 g/dL (3.4-5.0); Alkaline Phosphatase 110 U/L (46-116); Anion Gap 3.6 mmol/L (3-11); BUN 22 mg/dL (7-18); Bilirubin, Total 0.6 mg/dL (0.2-1.0); CO2 36.4 mmol/L (21.0-32.0); Calcium 9.2 mg/dL (8.5-10.1); Chloride 99 mmol/L (98-107); Estimated GFR 60.38 (mL/min/1.73m2); Glucose 181 mg/dL (74-106); Magnesium 2.2 mg/dL (1.8-2.4); Potassium 3.7 mmol/L (3.5-5.1); Sodium 139 mmol/L (136-145); TSH 2.06 uIU/mL (0.36-3.74); Total Protein 6.9 g/dL (6.4-8.2)
== END 2024-11-16 03:28 | disposition home or self-care (01) ==
LOC: LBO 03:27
PROVIDERS: PCP Nurse Practitioner Adult Health; Visit Provider Nurse Practitioner Family
DX: Z79.899 Other long term (current) drug therapy (principal)
CPT/HCPCS: 36415; 80053; 83735; 84439; 84443; 85025

== ENCOUNTER 2024-12-01 02:35 | Outpatient (CLI) | payer MEDICARE, SELFPAY ==
[2024-12-01 07:50] LABS: Abs Immature Grans 0.01 10^3/uL (0.0-0.06); HCT 34.6 % (40.0-50.0); HGB 11.1 g/dL (13.5-17.5); Immature Grans % 0.2 %; MCH 31.5 pg (27.0-33.0); MCHC 32.1 % (32.0-36.0); MCV 98 fL (80-95); MPV 9.4 fL (8.0-11.0); Platelet Count 210 10^3/uL (130-400); RBC 3.52 10^6/uL (4.36-5.78); RDW 15.5 % (11.8-14.1); RDW-SD 54.8 fL; WBC 5.31 10^3/uL (4.4-10.8)
[2024-12-01 07:52] LABS: Glucose Negative (Negative)
[2024-12-01 08:02] LABS: C & S Indicated? No; RBC 0-2 HPF (0-2)
[2024-12-01 08:19] LABS: ALT 32 U/L (16-63); AST 27 U/L (15-37); Albumin 3.2 g/dL (3.4-5.0); Alkaline Phosphatase 96 U/L (46-116); Anion Gap 4.2 mmol/L (3-11); BUN 18 mg/dL (7-18); Bilirubin, Total 0.6 mg/dL (0.2-1.0); CO2 34.8 mmol/L (21.0-32.0); Calcium 9.1 mg/dL (8.5-10.1); Chloride 101 mmol/L (98-107); Estimated GFR 67.02 (mL/min/1.73m2); Glucose 150 mg/dL (74-106); Magnesium 2.1 mg/dL (1.8-2.4); Potassium 3.9 mmol/L (3.5-5.1); Sodium 140 mmol/L (136-145); TSH 1.76 uIU/mL (0.36-3.74); Total Protein 6.5 g/dL (6.4-8.2)
== END 2024-12-01 02:36 | disposition home or self-care (01) ==
LOC: LBO 02:36
PROVIDERS: PCP Nurse Practitioner Adult Health; Visit Provider Nurse Practitioner Family
DX: Z79.899 Other long term (current) drug therapy (principal); C34.31 Malignant neoplasm of lower lobe, right bronchus or lung
CPT/HCPCS: 36415; 80053; 81003; 81015; 83735; 84439; 84443; 85025

== ENCOUNTER 2024-12-15 15:57 | Outpatient (CLI) | payer MEDICARE, SELFPAY ==
[2024-12-15 07:51] LABS: Abs Immature Grans 0.01 10^3/uL (0.0-0.06); HCT 33.9 % (40.0-50.0); HGB 11.1 g/dL (13.5-17.5); Immature Grans % 0.2 %; MCH 31.7 pg (27.0-33.0); MCHC 32.7 % (32.0-36.0); MCV 97 fL (80-95); MPV 9.9 fL (8.0-11.0); Platelet Count 182 10^3/uL (130-400); RBC 3.50 10^6/uL (4.36-5.78); RDW 15.3 % (11.8-14.1); RDW-SD 53.8 fL; WBC 5.38 10^3/uL (4.4-10.8)
[2024-12-15 08:18] LABS: ALT 32 U/L (16-63); AST 29 U/L (15-37); Albumin 3.2 g/dL (3.4-5.0); Alkaline Phosphatase 99 U/L (46-116); Anion Gap 5.3 mmol/L (3-11); BUN 17 mg/dL (7-18); Bilirubin, Total 0.5 mg/dL (0.2-1.0); CO2 32.7 mmol/L (21.0-32.0); Calcium 9.1 mg/dL (8.5-10.1); Chloride 101 mmol/L (98-107); Estimated GFR 67.02 (mL/min/1.73m2); Glucose 165 mg/dL (74-106); Magnesium 2.1 mg/dL (1.8-2.4); Potassium 3.8 mmol/L (3.5-5.1); Sodium 139 mmol/L (136-145); TSH 1.85 uIU/mL (0.36-3.74); Total Protein 6.5 g/dL (6.4-8.2)
== END 2024-12-15 15:58 | disposition home or self-care (01) ==
LOC: LBO 15:57
PROVIDERS: PCP Nurse Practitioner Adult Health; Visit Provider Nurse Practitioner Family
DX: Z79.899 Other long term (current) drug therapy (principal); C34.31 Malignant neoplasm of lower lobe, right bronchus or lung
CPT/HCPCS: 36415; 80053; 83735; 84439; 84443; 85025

== ENCOUNTER 2024-12-29 03:44 | Outpatient (CLI) | payer MEDICARE, SELFPAY ==
[2024-12-29 07:53] LABS: Abs Immature Grans 0.01 10^3/uL (0.0-0.06); HCT 35.4 % (40.0-50.0); HGB 11.4 g/dL (13.5-17.5); Immature Grans % 0.2 %; MCH 31.5 pg (27.0-33.0); MCHC 32.2 % (32.0-36.0); MCV 98 fL (80-95); MPV 9.6 fL (8.0-11.0); Platelet Count 179 10^3/uL (130-400); RBC 3.62 10^6/uL (4.36-5.78); RDW 15.6 % (11.8-14.1); RDW-SD 55.9 fL; WBC 5.38 10^3/uL (4.4-10.8)
[2024-12-29 08:31] LABS: ALT 32 U/L (16-63); AST 30 U/L (15-37); Albumin 3.3 g/dL (3.4-5.0); Alkaline Phosphatase 102 U/L (46-116); Anion Gap 5.1 mmol/L (3-11); BUN 16 mg/dL (7-18); Bilirubin, Total 0.7 mg/dL (0.2-1.0); CO2 33.9 mmol/L (21.0-32.0); Calcium 9.5 mg/dL (8.5-10.1); Chloride 100 mmol/L (98-107); Estimated GFR 67.02 (mL/min/1.73m2); Glucose 147 mg/dL (74-106); Magnesium 2.2 mg/dL (1.8-2.4); Potassium 4.1 mmol/L (3.5-5.1); Sodium 139 mmol/L (136-145); TSH 1.85 uIU/mL (0.36-3.74); Total Protein 6.6 g/dL (6.4-8.2)
== END 2024-12-29 03:45 | disposition home or self-care (01) ==
LOC: LBO 03:44
PROVIDERS: PCP Nurse Practitioner Adult Health; Visit Provider Nurse Practitioner Family
DX: Z79.899 Other long term (current) drug therapy (principal)
CPT/HCPCS: 36415; 80053; 83735; 84439; 84443; 85025

== ENCOUNTER 2025-01-11 04:24 | Outpatient (CLI) | payer MEDICARE, SELFPAY ==
[2025-01-11 08:31] LABS: Abs Immature Grans 0.01 10^3/uL (0.0-0.06); HCT 36.0 % (40.0-50.0); HGB 11.8 g/dL (13.5-17.5); Immature Grans % 0.2 %; MCH 31.6 pg (27.0-33.0); MCHC 32.8 % (32.0-36.0); MCV 97 fL (80-95); MPV 9.4 fL (8.0-11.0); Platelet Count 179 10^3/uL (130-400); RBC 3.73 10^6/uL (4.36-5.78); RDW 15.5 % (11.8-14.1); RDW-SD 54.4 fL; WBC 4.52 10^3/uL (4.4-10.8)
[2025-01-11 09:25] LABS: ALT 37 U/L (16-63); AST 32 U/L (15-37); Albumin 3.4 g/dL (3.4-5.0); Alkaline Phosphatase 104 U/L (46-116); Anion Gap 5.6 mmol/L (3-11); BUN 21 mg/dL (7-18); Bilirubin, Total 0.6 mg/dL (0.2-1.0); CO2 34.4 mmol/L (21.0-32.0); Calcium 9.8 mg/dL (8.5-10.1); Chloride 99 mmol/L (98-107); Estimated GFR 67.02 (mL/min/1.73m2); Glucose 149 mg/dL (74-106); Magnesium 2.5 mg/dL (1.8-2.4); Potassium 4.2 mmol/L (3.5-5.1); Sodium 139 mmol/L (136-145); TSH 1.55 uIU/mL (0.36-3.74); Total Protein 6.8 g/dL (6.4-8.2)
== END 2025-01-11 04:25 | disposition home or self-care (01) ==
LOC: LBO 04:24
PROVIDERS: PCP Nurse Practitioner Adult Health; Visit Provider Nurse Practitioner Family
DX: Z79.899 Other long term (current) drug therapy (principal)
CPT/HCPCS: 36415; 80053; 83735; 84439; 84443; 85025

== ENCOUNTER 2025-02-08 00:22 | Outpatient (RCR) | payer MEDICARE, SELFPAY ==
[2025-01-25] MEDS: Normal Saline Flush 10 ML SYR IVP (08:37)
[2025-01-25 08:56] LABS: Abs Immature Grans 0.01 10^3/uL (0.0-0.06); HCT 33.8 % (40.0-50.0); HGB 11.2 g/dL (13.5-17.5); Immature Grans % 0.2 %; MCH 31.9 pg (27.0-33.0); MCHC 33.1 % (32.0-36.0); MCV 96 fL (80-95); MPV 10.0 fL (8.0-11.0); Platelet Count 175 10^3/uL (130-400); RBC 3.51 10^6/uL (4.36-5.78); RDW 15.5 % (11.8-14.1); RDW-SD 54.2 fL; WBC 5.49 10^3/uL (4.4-10.8)
[2025-01-25 09:40] LABS: ALT 32 U/L (16-63); AST 26 U/L (15-37); Albumin 3.2 g/dL (3.4-5.0); Alkaline Phosphatase 102 U/L (46-116); Anion Gap 8.1 mmol/L (3-11); BUN 16 mg/dL (7-18); Bilirubin, Total 0.6 mg/dL (0.2-1.0); CO2 30.9 mmol/L (21.0-32.0); Calcium 8.7 mg/dL (8.5-10.1); Chloride 101 mmol/L (98-107); Glucose 147 mg/dL (74-106); Magnesium 2.1 mg/dL (1.8-2.4); Potassium 3.9 mmol/L (3.5-5.1); Sodium 140 mmol/L (136-145); TSH 1.62 uIU/mL (0.36-3.74); Total Protein 6.4 g/dL (6.4-8.2)
[2025-02-08] MEDS: Normal Saline Flush 10 ML SYR IVP (07:44)
[2025-02-08 07:46] LABS: Abs Immature Grans 0.01 10^3/uL (0.0-0.06); HCT 35.6 % (40.0-50.0); HGB 11.7 g/dL (13.5-17.5); Immature Grans % 0.2 %; MCH 32.0 pg (27.0-33.0); MCHC 32.9 % (32.0-36.0); MCV 97 fL (80-95); MPV 10.0 fL (8.0-11.0); Platelet Count 193 10^3/uL (130-400); RBC 3.66 10^6/uL (4.36-5.78); RDW 15.5 % (11.8-14.1); RDW-SD 55.7 fL; WBC 5.61 10^3/uL (4.4-10.8)
[2025-02-08 08:13] LABS: ALT 33 U/L (16-63); AST 27 U/L (15-37); Albumin 3.2 g/dL (3.4-5.0); Alkaline Phosphatase 102 U/L (46-116); Anion Gap 7.6 mmol/L (3-11); BUN 18 mg/dL (7-18); Bilirubin, Total 0.6 mg/dL (0.2-1.0); CO2 33.4 mmol/L (21.0-32.0); Calcium 8.9 mg/dL (8.5-10.1); Chloride 100 mmol/L (98-107); Glucose 159 mg/dL (74-106); Magnesium 2.1 mg/dL (1.8-2.4); Potassium 3.8 mmol/L (3.5-5.1); Sodium 141 mmol/L (136-145); TSH 1.69 uIU/mL (0.36-3.74); Total Protein 6.6 g/dL (6.4-8.2)
== END 2025-02-12 23:59 | disposition home or self-care (01) ==
LOC: INF 00:22
PROVIDERS: Nurse Practitioner Family; PCP Nurse Practitioner Adult Health; Visit Provider Internal Medicine Medical Oncology
DX: C34.31 Malignant neoplasm of lower lobe, right bronchus or lung (principal); Z79.899 Other long term (current) drug therapy; Z45.2 Encounter for adjustment and management of vascular access device
CPT/HCPCS: 36591; 80053; 83735; 84439; 84443; 85025

== ENCOUNTER 2025-03-08 03:18 | Outpatient (RCR) | payer MEDICARE, SELFPAY ==
[2025-02-22] MEDS: Normal Saline Flush 10 ML SYR IVP (07:40)
[2025-02-22 07:46] LABS: Abs Immature Grans 0.01 10^3/uL (0.0-0.06); HCT 34.2 % (40.0-50.0); HGB 11.3 g/dL (13.5-17.5); Immature Grans % 0.2 %; MCH 31.8 pg (27.0-33.0); MCHC 33.0 % (32.0-36.0); MCV 96 fL (80-95); MPV 10.2 fL (8.0-11.0); Platelet Count 182 10^3/uL (130-400); RBC 3.55 10^6/uL (4.36-5.78); RDW 14.9 % (11.8-14.1); RDW-SD 52.6 fL; WBC 4.89 10^3/uL (4.4-10.8)
[2025-02-22 08:20] LABS: ALT 31 U/L (16-63); AST 27 U/L (15-37); Albumin 3.2 g/dL (3.4-5.0); Alkaline Phosphatase 106 U/L (46-116); Anion Gap 8.7 mmol/L (3-11); BUN 18 mg/dL (7-18); Bilirubin, Total 0.5 mg/dL (0.2-1.0); CO2 31.3 mmol/L (21.0-32.0); Calcium 8.7 mg/dL (8.5-10.1); Chloride 101 mmol/L (98-107); Estimated GFR 67.02 (mL/min/1.73m2); Glucose 159 mg/dL (74-106); Magnesium 2.0 mg/dL (1.8-2.4); Potassium 3.9 mmol/L (3.5-5.1); Sodium 141 mmol/L (136-145); TSH 1.62 uIU/mL (0.36-3.74); Total Protein 6.6 g/dL (6.4-8.2)
[2025-03-08] MEDS: Normal Saline Flush 10 ML SYR IVP (07:44)
[2025-03-08 07:50] LABS: Abs Immature Grans 0.02 10^3/uL (0.0-0.06); HCT 34.1 % (40.0-50.0); HGB 11.4 g/dL (13.5-17.5); Immature Grans % 0.3 %; MCH 31.7 pg (27.0-33.0); MCHC 33.4 % (32.0-36.0); MCV 95 fL (80-95); MPV 9.7 fL (8.0-11.0); Platelet Count 186 10^3/uL (130-400); RBC 3.60 10^6/uL (4.36-5.78); RDW 14.7 % (11.8-14.1); RDW-SD 50.3 fL; WBC 5.78 10^3/uL (4.4-10.8)
[2025-03-08 08:10] LABS: Magnesium 1.9 mg/dL (1.6-2.6)
[2025-03-08 08:11] LABS: ALT 21 U/L (10-49); AST 26 U/L (<34); Albumin 3.9 g/dL (3.4-5.0); Alkaline Phosphatase 98 U/L (46-116); Anion Gap 7.8 mmol/L (3-11); BUN 19 mg/dL (9-23); Bilirubin, Total 0.70 mg/dL (0.2-1.2); CO2 31.2 mmol/L (20.0-31.0); Calcium 8.9 mg/dL (8.3-10.6); Chloride 100 mmol/L (98-107); Glucose 148 mg/dL (74-106); Potassium 4.0 mmol/L (3.5-5.1); Sodium 139 mmol/L (136-145); Total Protein 6.4 g/dL (5.7-8.2)
[2025-03-08 08:13] LABS: TSH 1.18 uIU/mL (0.55-4.78)
== END 2025-03-14 23:59 | disposition home or self-care (01) ==
LOC: INF 03:18
PROVIDERS: Nurse Practitioner Family; PCP Nurse Practitioner Adult Health; Visit Provider Internal Medicine Medical Oncology
DX: C34.31 Malignant neoplasm of lower lobe, right bronchus or lung (principal); Z79.899 Other long term (current) drug therapy; Z45.2 Encounter for adjustment and management of vascular access device
CPT/HCPCS: 36591; 80053; 83735; 84439; 84443; 85025

== ENCOUNTER 2025-04-05 01:03 | Outpatient (RCR) | payer MEDICARE, SELFPAY ==
[2025-03-23 07:54] LABS: Abs Immature Grans 0.02 10^3/uL (0.0-0.06); HCT 34.4 % (40.0-50.0); HGB 11.5 g/dL (13.5-17.5); Immature Grans % 0.3 %; MCH 32.4 pg (27.0-33.0); MCHC 33.4 % (32.0-36.0); MCV 97 fL (80-95); MPV 10.3 fL (8.0-11.0); Platelet Count 201 10^3/uL (130-400); RBC 3.55 10^6/uL (4.36-5.78); RDW 14.7 % (11.8-14.1); RDW-SD 52.2 fL; WBC 7.08 10^3/uL (4.4-10.8)
[2025-03-23 08:19] LABS: Magnesium 2.0 mg/dL (1.6-2.6)
[2025-03-23 08:21] LABS: ALT 22 U/L (10-49); AST 27 U/L (<34); Albumin 3.8 g/dL (3.2-5.0); Alkaline Phosphatase 102 U/L (46-116); Anion Gap 6.7 mmol/L (3-11); BUN 14 mg/dL (9-23); Bilirubin, Total 0.70 mg/dL (0.2-1.2); CO2 31.3 mmol/L (20.0-31.0); Calcium 8.8 mg/dL (8.3-10.6); Chloride 102 mmol/L (98-107); Glucose 132 mg/dL (74-106); Potassium 4.0 mmol/L (3.5-5.1); Sodium 140 mmol/L (136-145); Total Protein 6.6 g/dL (5.7-8.2)
[2025-03-23 08:24] LABS: TSH 1.56 uIU/mL (0.55-4.78)
[2025-03-23] MEDS: Normal Saline Flush 10 ML SYR IVP (08:55)
[2025-04-05 08:00] LABS: Abs Immature Grans 0.01 10^3/uL (0.0-0.06); HCT 35.3 % (40.0-50.0); HGB 11.7 g/dL (13.5-17.5); Immature Grans % 0.2 %; MCH 32.1 pg (27.0-33.0); MCHC 33.1 % (32.0-36.0); MCV 97 fL (80-95); MPV 10.3 fL (8.0-11.0); Platelet Count 183 10^3/uL (130-400); RBC 3.65 10^6/uL (4.36-5.78); RDW 14.7 % (11.8-14.1); RDW-SD 51.6 fL; WBC 5.05 10^3/uL (4.4-10.8)
[2025-04-05] MEDS: Normal Saline Flush 10 ML SYR IVP (08:06)
[2025-04-05 08:38] LABS: Magnesium 2.0 mg/dL (1.6-2.6)
[2025-04-05 08:40] LABS: ALT 21 U/L (10-49); AST 25 U/L (<34); Albumin 3.9 g/dL (3.2-5.0); Alkaline Phosphatase 96 U/L (46-116); Anion Gap 9.1 mmol/L (3-11); BUN 14 mg/dL (9-23); Bilirubin, Total 0.6 mg/dL (0.2-1.2); CO2 29.9 mmol/L (20.0-31.0); Calcium 9.0 mg/dL (8.3-10.6); Chloride 103 mmol/L (98-107); Glucose 139 mg/dL (74-106); Potassium 4.2 mmol/L (3.5-5.1); Sodium 142 mmol/L (136-145); Total Protein 6.6 g/dL (5.7-8.2)
[2025-04-05 08:42] LABS: TSH 1.37 uIU/mL (0.55-4.78)
== END 2025-04-14 23:59 | disposition home or self-care (01) ==
LOC: INF 01:03
PROVIDERS: Nurse Practitioner Family; PCP Nurse Practitioner Adult Health; Visit Provider Internal Medicine Medical Oncology
DX: C34.31 Malignant neoplasm of lower lobe, right bronchus or lung (principal); Z79.899 Other long term (current) drug therapy; Z45.2 Encounter for adjustment and management of vascular access device
CPT/HCPCS: 36591; 80053; 83735; 84439; 84443; 85025